=== PATIENT | male | born 1955 | race Caucasian/White ===

== ENCOUNTER 2021-07-08 14:56 | Inpatient (IN) | payer OTHER, MEDICARE ==
--- OUTSIDE RECORDS SUMMARY | 2021-07-08 15:00 | XMS REPORT | Continuity of Care Document ---
:1955 Author Organization [facility] t Address [address] [place] [address] Dr. [address] [place] [address] Care Team Providers Name Role Phone Britney THIBODEAUX Attending Clinician Unavailable JANET Attending Clinician Unavailable 2, Lab Attending Clinician Unavailable Janet OWENS Attending Clinician Buck Martin DO Attending Clinician Doctor Unassigned, Name Attending Clinician Unavailable Morelia DRAKEP, A Attending Clinician Quentin OWENS, H Attending Clinician Lab, Fam Pob I Attending Clinician Unavailable Ivelisse HOLLINGSWORTH Attending Clinician IVELISSE Attending Clinician Unavailable Payers Payer Name Policy Type Policy Number Effective Date Expiration Date Americo grimm [facility] Medicare P [id number] Supplement [facility] [id number] 2016 CHOICE 00:00:00 Problems Condition Condition Condition Status Onset Resolution Last Treating Co mments Source Name Details Category Date Date Treatment Clinician Date Callus of Callus of Disease Active Uni vers foot foot 7-11 ity of 00:00: [place] 00 [facility] Type 2 Type 2 Disease Active Univers diabetes diabetes 1-04 ity of mellitus mellitus 00:00: [place] without without 00 Medical complicati complicati Br anch on, on, without without long-term long-term current current use of use of insulin insulin Dyslipidem Dyslipidem Disease Active U nivers ia ia 1-04 ity of 00:00: [place] 00 [facility] Essential Essential Disease Active Uni vers hypertensi hypertensi 1-04 it y of on on 00:00: [address] Allergies, Adverse Reactions, Alerts Allergy Allergy Status Severity Reaction(s) Onset Inactive Treating Comm ents Source Name Type Date Date Clinician NO KNOWN Drug Active Univers ALLERGIE Class ity of S [facility] Social History Social Habit Start Date Stop Date Quantity Comments Source History of tobacco Cigarette Smoker University of use [facility] Exposure to Not sure [facility] SARS-CoV-2 (event) [facility] Cigarettes smoked 2020-05-28 2020-05-28 Univers ity of current (pack per 00:00:00 00:00:00 [facility] ) - Reported Marine Cigarette 2020-05-28 2020-05-28 University of pack-years 00:00:00 00:00:00 [facility] Tobacco use and 2020-05-28 2020-05-28 Never used Universit y of exposure 00:00:00 00:00:00 [facility] Alcohol intake 2020-05-28 2020-05-28 University of 00:00:00 00:00:00 [facility] Sex Ass[birth year] Universit y of 00:00:00 00:00:00 [facility] Smoking Status Start Date Stop Date Source Current every day smoker 2020-05-28 00:00:00 Uni versity of [facility] Medications Ordered Filled Start Stop Current Ordering Indication Dosage Frequency Signature Comments Components Source Medication Medication Date Date Medication? Clinician (SIG) Name Name glipiZIDE Yes [id number] 10mg Take 1 U nivers XL 10 mg 24 3-09 tablet by ity of hr tablet 00:00: mouth 2 [place] 00 (two) [facility] daily. atorvastati Yes [id number] 40mg Take 1 Univers n 40 mg 3-09 tablet by ity of tablet 00:00: mouth at [place] [address] bedtime. [facility] metformin Yes [id number] 1000mg Take 2 Univers ER 500 mg 3-09 tablets by ity of 24 hr 00:00: mouth 2 [place] tablet 00 (two) [facility] daily. lisinopriL Yes [id number] TK 1 T PO Univers 5 mg tablet 3-09 QD ity of 00:00: [place] 00 [facility] pioglitazon Yes [id number] 15mg Take 1 Univers e 15 mg 3-09 tablet by ity of tablet 00:00: mouth [place] 00 daily. Medical Branch glipiZIDE Yes [id number] 10mg Take 1 U nivers XL 10 mg 24 3-09 tablet by ity of hr tablet 00:00: mouth 2 [place] 00 (two) [facility] times Branch daily. atorvastati Yes [id number] 40mg Take 1 Univers n 40 mg 3-09 tablet by ity of tablet 00:00: mouth at [place] 00 bedtime. Medical Branch metformin Yes [id number] 1000mg Take 2 Univers ER 500 mg 3-09 tablets by ity of 24 hr 00:00: mouth 2 [place] tablet 00 (two) Medical times Branch daily. lisinopriL Yes [id number] TK 1 T PO Univers 5 mg tablet 3-09 QD ity of 00:00: [place] 00 [facility] pioglitazon Yes [id number] 15mg Take 1 Univers e 15 mg 3-09 tablet by ity of tablet 00:00: mouth [place] 00 daily. Medical Branch glipiZIDE Yes [id number] 10mg Take 1 U nivers XL 10 mg 24 3-09 tablet by ity of hr tablet 00:00: mouth 2 [place] 00 (two) Medical times Branch daily. atorvastati Yes [id number] 40mg Take 1 Univers n 40 mg 3-09 tablet by ity of tablet 00:00: mouth at [place] 00 bedtime. Medical Branch metformin Yes [id number] 1000mg Take 2 Univers ER 500 mg 3-09 tablets by ity of 24 hr 00:00: mouth 2 [place] tablet 00 (two) Medical times Branch daily. lisinopriL Yes [id number] TK 1 T PO Univers 5 mg tablet 3-09 QD ity of 00:00: [place] 00 [facility] pioglitazon Yes [id number] 15mg Take 1 Univers e 15 mg 3-09 tablet by ity of tablet 00:00: mouth [place] 00 daily. Medical Branch metformin 2019-0 Yes [id number] 1000mg Take 2 Univers ER 500 mg 9-09 tablets by ity of 24 hr 00:00: mouth 2 [place] tablet 00 (two) Medical times Branch daily. pioglitazon 2020-0 Yes [id number] 15mg Take 1 Univers e 15 mg 9-09 tablet by ity of tablet 00:00: mouth [place] 00 daily. Medical Branch glipiZIDE 2020-0 Yes [id number] 10mg Take 1 U nivers XL 10 mg 24 9-09 tablet by ity of hr tablet 00:00: mouth 2 [place] 00 (two) Medical times Branch daily. atorvastati 2020-0 Yes [id number] 40mg Take 1 Univers n 40 mg 9-09 tablet by ity of tablet 00:00: mouth at [place] 00 bedtime. Medical Branch lisinopriL 2020-0 Yes [id number] TK 1 T PO Univers 5 mg tablet 9-09 QD ity of 00:00: [place] 00 [facility] metformin 2020-0 Yes [id number] 1000mg Take 2 Univers ER 500 mg 9-09 tablets by ity of 24 hr 00:00: mouth 2 [place] tablet 00 (two) Medical times Branch daily. pioglitazon 2020-0 Yes [id number] 15mg Take 1 Univers e 15 mg 9-09 tablet by ity of tablet 00:00: mouth [place] 00 daily. Medical Branch glipiZIDE 2020-0 Yes [id number] 10mg Take 1 U nivers XL 10 mg 24 9-09 tablet by ity of hr tablet 00:00: mouth 2 [place] 00 (two) Medical times Branch daily. atorvastati 2020-0 Yes [id number] 40mg Take 1 Univers n 40 mg 9-09 tablet by ity of tablet 00:00: mouth at [place] 00 bedtime. Medical Branch lisinopriL 2020-0 Yes [id number] TK 1 T PO Univers 5 mg tablet 9-09 QD ity of 00:00: [place] 00 [facility] metformin 2020-0 Yes [id number] 1000mg Take 2 Univers ER 500 mg 9-09 tablets by ity of 24 hr 00:00: mouth 2 [place] tablet 00 (two) Medical times Branch daily. pioglitazon 2020-0 Yes [id number] 15mg Take 1 Univers e 15 mg 9-09 tablet by ity of tablet 00:00: mouth [place] 00 daily. Medical Branch glipiZIDE 2020-0 Yes [id number] 10mg Take 1 U nivers XL 10 mg 24 9-09 tablet by ity of hr tablet 00:00: mouth 2 00 (two) Medical times Branch daily. atorvastati 2020-0 Yes [id number] 40mg Take 1 Univers n 40 mg 9-09 tablet by ity of tablet 00:00: mouth at [place] 00 bedtime. Medical Branch lisinopriL 2020-0 Yes [id number] TK 1 T PO Univers 5 mg tablet 9-09 QD ity of 00:00: [place] 00 [facility] metformin 2020-0 Yes [id number] 1000mg Take 2 Univers ER 500 mg 9-09 tablets by ity of 24 hr 00:00: mouth 2 [place] tablet 00 (two) Medical times Branch daily. pioglitazon 2020-0 Yes [id number] 15mg Take 1 Univers e 15 mg 9-09 tablet by ity of tablet 00:00: mouth [place] 00 daily. Medical Branch glipiZIDE 2020-0 Yes [id number] 10mg Take 1 U nivers XL 10 mg 24 9-09 tablet by ity of hr tablet 00:00: mouth 2 (two) Medical times Branch daily. atorvastati 2020-0 Yes [id number] 40mg Take 1 Univers n 40 mg 9-09 tablet by ity of tablet 00:00: mouth at [place] 00 bedtime. Medical Branch lisinopriL 2020-0 Yes [id number] TK 1 T PO Univers 5 mg tablet 9-09 QD ity of 00:00: [place] 00 [facility] metformin 2020-0 Yes [id number] 1000mg Take 2 Univers ER 500 mg 9-09 tablets by ity of 24 hr 00:00: mouth 2 [place] tablet 00 (two) Medical times Branch daily. pioglitazon 2020-0 Yes [id number] 15mg Take 1 Univers e 15 mg 9-09 tablet by ity of tablet 00:00: mouth [place] 00 daily. Medical Branch glipiZIDE 2020-0 Yes [id number] 10mg Take 1 U nivers XL 10 mg 24 9-09 tablet by ity of hr tablet 00:00: mouth 2 (two) Medical times Branch daily. atorvastati 2020-0 Yes [id number] 40mg Take 1 Univers n 40 mg 9-09 tablet by ity of tablet 00:00: mouth at [place] 00 bedtime. Medical Branch lisinopriL 2020-0 Yes [id number] TK 1 T PO Univers 5 mg tablet 11-28 QD ity of 00:00: [place] 00 [facility] metformin 2020- No [id number] 1000mg Take 2 Univers ER 500 mg 11-28 tablets by ity of 24 hr 00:00: 00:00 mouth 2 [place] tablet 00 :00 (two) Medical times Branch daily. pioglitazon 2020- No [id number] 15mg Take 1 Univers e 15 mg 11-28 tablet by ity of tablet 00:00: 00:00 mouth [place] 00 :00 daily. Medical Branch glipiZIDE 2020- No [id number] 10mg Take 1 Univers XL 10 mg 24 11-28 tablet by it y of hr tablet 00:00: 00:00 mouth 2 [place] :[place] (two) Medical times Branch daily. atorvastati 2020- No [id number] 40mg Take 1 Univers n 40 mg 11-28 tablet by ity of tablet 00:00: 00:00 mouth at [place] 00 :00 bedtime. Medical Branch lisinopriL 2020- No [id number] TK 1 T PO Univers 5 mg tablet 11-28 QD ity of 00:00: 00:00 [place] 00 :00 Medical Branch metformin 2020- No [id number] 1000mg Take 2 Univers ER 500 mg 11-28 tablets by ity of 24 hr 00:00: 00:00 mouth 2 [place] tablet 00 :00 (two) Medical times Branch daily. pioglitazon 2020- No [id number] 15mg Take 1 Univers e 15 mg 11-28 tablet by ity of tablet 00:00: 00:00 mouth [place] 00 :00 daily. Medical Branch glipiZIDE 2020- No [id number] 10mg Take 1 Univers XL 10 mg 24 11-28 tablet by it y of hr tablet 00:00: 00:00 mouth 2 [place] :[place] (two) Medical times Branch daily. atorvastati 2020- No [id number] 40mg Take 1 Univers n 40 mg 11-28 tablet by ity of tablet 00:00: 00:00 mouth at [place] 00 :00 bedtime. Medical Branch lisinopriL 2020- No [id number] TK 1 T PO Univers 5 mg tablet 11-28 QD ity of 00:00: 00:00 [place] 00 :00 Medical Branch pioglitazon Yes [id number] 15mg Take 1 Univers e 15 mg 1-08 tablet by ity of tablet 00:00: mouth [place] 00 daily. Medical Branch pioglitazon Yes [id number] 15mg Take 1 Univers e 15 mg 1-08 tablet by ity of tablet 00:00: mouth [place] 00 daily. Medical Branch pioglitazon Yes [id number] 15mg Take 1 Univers e 15 mg 1-08 tablet by ity of tablet 00:00: mouth [place] 00 daily. Medical Branch pioglitazon Yes [id number] 15mg Take 1 Univers e 15 mg 1-08 tablet by ity of tablet 00:00: mouth [place] 00 daily. Medical Branch pioglitazon Yes [id number] 15mg Take 1 Univers e 15 mg 1-08 tablet by ity of tablet 00:00: mouth [place] 00 daily. Medical Branch pioglitazon 2020- No [id number] 15mg Take 1 Univers e 15 mg -08 -09 tablet by ity of tablet 00:00: 00:00 mouth [place] 00 :00 daily. Medical Branch pioglitazon 2019- No [id number] 15mg Take 1 Univers e 15 mg 08 -09 tablet by ity of tablet 00:00: 00:00 mouth [place] 00 :00 daily. Medical Branch glipiZIDE 2018-03 Yes [id number] 10mg Take 1 U nivers XL 10 mg 24 0-04 tablet by ity of hr tablet 00:00: mouth 2 00 (two) Medical times Branch daily. glipiZIDE 2018-03 Yes [id number] 10mg Take 1 U nivers XL 10 mg 24 0-04 tablet by ity of hr tablet 00:00: mouth 2 00 (two) Medical times Branch daily. glipiZIDE 2018-03 Yes [id number] 10mg Take 1 U nivers XL 10 mg 24 0-04 tablet by ity of hr tablet 00:00: mouth 2 [place] 00 (two) Medical times Branch daily. glipiZIDE 2018-03 Yes [id number] 10mg Take 1 U nivers XL 10 mg 24 0-04 tablet by ity of hr tablet 00:00: mouth 2 (two) Medical times Branch daily. glipiZIDE 2018-03 Yes [id number] 10mg Take 1 U nivers XL 10 mg 24 0-04 tablet by ity of hr tablet 00:00: mouth 2 (two) Medical times Branch daily. glipiZIDE 2018-03- No [id number] 10mg Take 1 Univers XL 10 mg 24 0-04 09-09 tablet by it y of hr tablet 00:00: 00:00 mouth 2 [place] :[place] (two) Medical times Branch daily. glipiZIDE 2018-03- No [id number] 10mg Take 1 Univers XL 10 mg 24 0-04 09-09 tablet by it y of hr tablet 00:00: 00:00 mouth 2 [place] 00 :00 (two) Medical times Branch daily. atorvastati Yes [id number] 40mg Take 1 Univers n 40 mg 6-19 tablet by ity of tablet 00:00: mouth at [place] [address] bedtime. Medical Branch pen needle, Yes [id number] 1{each} 1 Each Univers diabetic 33 6-19 every ity of gauge x 00:00: morning. [place] [facility] atorvastati Yes [id number] 40mg Take 1 Univers n 40 mg 6-19 tablet by ity of tablet 00:00: mouth at [place] [address] bedtime. Medical Branch pen needle, Yes [id number] 1{each} 1 Each Univers diabetic 33 6-19 every ity of gauge x 00:00: morning. [place] [facility] atorvastati Yes [id number] 40mg Take 1 Univers n 40 mg 6-19 tablet by ity of tablet 00:00: mouth at [place] [address] bedtime. Medical Branch pen needle, Yes [id number] 1{each} 1 Each Univers diabetic 33 6-19 every ity of gauge x 00:00: morning. [place] [facility] atorvastati Yes [id number] 40mg Take 1 Univers n 40 mg 6-19 tablet by ity of tablet 00:00: mouth at [place] 00 bedtime. Medical Branch pen needle, Yes [id number] 1{each} 1 Each Univers diabetic 33 6-19 every ity of gauge x 00:00: morning. Medical Branch pen needle, Yes [id number] 1{each} 1 Each Univers diabetic 33 6-19 every ity of gauge x 00:00: morning. Medical Branch pen needle, Yes [id number] 1{each} 1 Each Univers diabetic 33 6-19 every ity of gauge x 00:00: morning. [place] [facility] pen needle, Yes [id number] 1{each} 1 Each Univers diabetic 33 6-19 every ity of gauge x 00:00: morning. [place] [facility] pen needle, Yes [id number] 1{each} 1 Each Univers diabetic 33 6-19 every ity of gauge x 00:00: morning. Medical Branch pen needle, Yes [id number] 1{each} 1 Each Univers diabetic 33 6-19 every ity of gauge x 00:00: morning. [place] [facility] pen needle, Yes [id number] 1{each} 1 Each Univers diabetic 33 6-19 every ity of gauge x 00:00: morning. [place] [facility] pen needle, Yes [id number] 1{each} 1 Each Univers diabetic 33 6-19 every ity of gauge x 00:00: morning. [place] [facility] atorvastati Yes [id number] 40mg Take 1 Univers n 40 mg 6-19 tablet by ity of tablet 00:00: mouth at [place] 00 bedtime. Medical Branch liraglutide Yes [id number] 1.2mg inject 1.2 Univers 0.6 mg/0.1 6-19 mg under ity o f mL (18 mg/3 00:00: the skin [place] mL) 00 daily. Medical injection Branch pen needle, Yes [id number] 1{each} 1 Each Univers diabetic 33 6-19 every ity of gauge x 00:00: morning. Medical Branch pen needle, Yes [id number] 1{each} 1 Each Univers diabetic 33 6-19 every ity of gauge x 00:00: morning. " [place] [facility] atorvastati Yes [id number] 40mg Take 1 Univers n 40 mg 6-19 tablet by ity of tablet 00:00: mouth at [place] 00 bedtime. Medical Branch liraglutide Yes [id number] 1.2mg inject 1.2 Univers 0.6 mg/0.1 6-19 mg under ity o f mL (18 mg/3 00:00: the skin [place] mL) 00 daily. Medical injection Branch pen needle, Yes [id number] 1{each} 1 Each Univers diabetic 33 6-19 every ity of gauge x 00:00: morning. Medical Branch atorvastati Yes [id number] 40mg Take 1 Univers n 40 mg 6-19 tablet by ity of tablet 00:00: mouth at [place] 00 bedtime. Medical Branch liraglutide Yes [id number] 1.2mg inject 1.2 Univers 0.6 mg/0.1 6-19 mg under ity o f mL (18 mg/3 00:00: the skin [place] mL) 00 daily. Medical injection Branch pen needle, Yes [id number] 1{each} 1 Each Univers diabetic 33 6-19 every ity of gauge x 00:00: morning. " [place] [facility] atorvastati Yes [id number] 40mg Take 1 Univers n 40 mg 6-19 tablet by ity of tablet 00:00: mouth at [place] 00 bedtime. Medical Branch liraglutide Yes [id number] 1.2mg inject 1.2 Univers 0.6 mg/0.1 6-19 mg under ity o f mL (18 mg/3 00:00: the skin [place] mL) 00 daily. Medical injection Branch pen needle, Yes [id number] 1{each} 1 Each Univers diabetic 33 6-19 every ity of gauge x 00:00: morning. [place] " [place] 00 Medical Branch atorvasta Yes [id number] 40mg Take 1 Univers n 40 mg 6-19 tablet by ity of tablet 00:00: mouth at [place] 00 bedtime. Medical Branch pen needle, Yes [id number] 1{each} 1 Each Univers diabetic 33 6-19 every ity of gauge x 00:00: morning. [place] " [place] 00 Medical Branch atorvasta 2020- No [id number] 40mg Take 1 Univers n 40 mg 6-19 11-28 tablet by ity of tablet 00:00: 00:00 mouth at [place] 00 :00 bedtime. Medical Branch atorvastati 2020- No [id number] 40mg Take 1 Univers n 40 mg 6-19 11-28 tablet by ity of tablet 00:00: 00:00 mouth at [place] 00 :00 bedtime. [facility] 2017-03 Yes INL 1 PUFF Univers ELLIPTA 2-29 PO QD ity of 200-25 00:00: [place] mcg/dose 00 [facility] 2017-03 Yes INL 1 PUFF Univers ELLIPTA 2-29 PO QD ity of 200-25 00:00: [place] mcg/dose 00 [facility] 2017-03 Yes INL 1 PUFF Univers ELLIPTA 2-29 PO QD ity of 200-25 00:00: [place] mcg/dose 00 [facility] 2017-03 Yes INL 1 PUFF Univers ELLIPTA 2-29 PO QD ity of 200-25 00:00: [place] mcg/dose 00 [facility] 2017-03 Yes INL 1 PUFF Univers ELLIPTA 2-29 PO QD ity of 200-25 00:00: [place] mcg/dose 00 [facility] 2017-03 Yes INL 1 PUFF Univers ELLIPTA 2-29 PO QD ity of 200-25 00:00: [place] mcg/dose 00 [facility] 2017-03 Yes INL 1 PUFF Univers ELLIPTA 2-29 PO QD ity of 200-25 00:00: [place] mcg/dose 00 [facility] 2017-03 Yes INL 1 PUFF Univers ELLIPTA 2-29 PO QD ity of 200-25 00:00: [place] mcg/dose 00 [facility] 2017-03 Yes INL 1 PUFF Univers ELLIPTA 2-29 PO QD ity of 200-25 00:00: [place] mcg/dose 00 Medical DsDv Branch BRE 2018- Yes INL 1 PUFF Univers ELLIPTA 2-29 PO QD ity of 200-25 00:00: [place] mcg/dose 00 Medical DsDv Branch BRE 2018 Yes INL 1 PUFF Univers ELLIPTA 2-29 PO QD ity of 200-25 00:00: [place] mcg/dose 00 Medical DsDv Branch BRE 2017- Yes INL 1 PUFF Univers ELLIPTA 2-29 PO QD ity of 200-25 00:00: [place] mcg/dose 00 Medical DsDv Branch BRE 2018- Yes INL 1 PUFF Univers ELLIPTA 2-29 PO QD ity of 200-25 00:00: [place] mcg/dose 00 Medical DsDv Branch [facility] 2017-03 Yes INL 1 PUFF Univers ELLIPTA 2-29 PO QD ity of 200-25 00:00: [place] mcg/dose 00 Medical DsDv Branch [facility] 2017- Yes INL 1 PUFF Univers ELLIPTA 2-29 PO QD ity of 200-25 00:00: [place] mcg/dose 00 Medical DsDv Branch [facility] 2017- Yes INL 1 PUFF Univers ELLIPTA 2-29 PO QD ity of 200-25 00:00: [place] mcg/dose 00 Medical DsDv Branch [facility] 2017-03 Yes INL 1 PUFF Univers ELLIPTA 2-29 PO QD ity of 200-25 00:00: [place] mcg/dose 00 Medical DsDv Branch tamsulosin [id number] Yes .4mg Take 1 Unive rs 0.4 mg 24 8-10 capsule by ity of hr capsule 00:00: mouth [place] 00 daily. Medical Branch tamsulosin 2018-0 Yes .4mg Take 1 Unive rs 0.4 mg 24 8-10 capsule by ity of hr capsule 00:00: mouth [place] 00 daily. Medical Branch tamsulosin 2018-0 Yes .4mg Take 1 Unive rs 0.4 mg 24 8-10 capsule by ity of hr capsule 00:00: mouth [place] 00 daily. Medical Branch tamsulosin [id number] Yes .4mg Take 1 Unive rs 0.4 mg 24 8-10 capsule by ity of hr capsule 00:00: mouth [place] 00 daily. Medical Branch tamsulosin 2018-0 Yes .4mg Take 1 Unive rs 0.4 mg 24 8-10 capsule by ity of hr capsule 00:00: mouth [place] 00 daily. Medical Branch tamsulosin 2018-0 Yes .4mg Take 1 Unive rs 0.4 mg 24 8-10 capsule by ity of hr capsule 00:00: mouth [place] 00 daily. Medical Branch tamsulosin 2018-0 Yes .4mg Take 1 Unive rs 0.4 mg 24 8-10 capsule by ity of hr capsule 00:00: mouth [place] 00 daily. Medical Branch tamsulosin 2018-0 Yes .4mg Take 1 Unive rs 0.4 mg 24 8-10 capsule by ity of hr capsule 00:00: mouth [place] 00 daily. Medical Branch tamsulosin 2018-0 Yes .4mg Take 1 Unive rs 0.4 mg 24 8-10 capsule by ity of hr capsule 00:00: mouth [place] 00 daily. Medical Branch tamsulosin 2018-0 Yes .4mg Take 1 Unive rs 0.4 mg 24 8-10 capsule by ity of hr capsule 00:00: mouth [place] 00 daily. Medical Branch tamsulosin 2018-0 Yes .4mg Take 1 Unive rs 0.4 mg 24 8-10 capsule by ity of hr capsule 00:00: mouth [place] 00 daily. Medical Branch tamsulosin 2018-0 Yes .4mg Take 1 Unive rs 0.4 mg 24 8-10 capsule by ity of hr capsule 00:00: mouth [place] 00 daily. Medical Branch tamsulosin 2018-0 Yes .4mg Take 1 Unive rs 0.4 mg 24 8-10 capsule by ity of hr capsule 00:00: mouth [place] 00 daily. Medical Branch tamsulosin 2018-0 Yes .4mg Take 1 Unive rs 0.4 mg 24 8-10 capsule by ity of hr capsule 00:00: mouth [place] 00 daily. Medical Branch tamsulosin 2018-0 Yes .4mg Take 1 Unive rs 0.4 mg 24 8-10 capsule by ity of hr capsule 00:00: mouth [place] 00 daily. Medical Branch tamsulosin 2018-0 Yes .4mg Take 1 Unive rs 0.4 mg 24 8-10 capsule by ity of hr capsule 00:00: mouth [place] 00 daily. Medical Branch tamsulosin 2018-0 Yes .4mg Take 1 Unive rs 0.4 mg 24 8-10 capsule by ity of hr capsule 00:00: mouth [place] 00 daily. Medical Branch metformin 2017-0 Yes [id number] 1000mg Take 2 Univers ER 500 mg 7-11 tablets by ity of 24 hr 00:00: mouth 2 [place] tablet 00 (two) Medical times Branch daily. metformin 2017-0 Yes [id number] 1000mg Take 2 Univers ER 500 mg 7-11 tablets by ity of 24 hr 00:00: mouth 2 [place] tablet 00 (two) Medical times Branch daily. metformin 2017-0 Yes [id number] 1000mg Take 2 Univers ER 500 mg 7-11 tablets by ity of 24 hr 00:00: mouth 2 [place] tablet 00 (two) Medical times Branch daily. glipiZIDE 2017-0 Yes [id number] 10mg Take 1 U nivers XL 10 mg 24 7-11 tablet by ity of hr tablet 00:00: mouth 2 [place] 00 (two) Medical times Branch daily. metformin 2017-0 Yes [id number] 1000mg Take 2 Univers ER 500 mg 7-11 tablets by ity of 24 hr 00:00: mouth 2 [place] tablet 00 (two) Medical times Branch daily. glipiZIDE 2017-0 Yes [id number] 10mg Take 1 U nivers XL 10 mg 24 7-11 tablet by ity of hr tablet 00:00: mouth 2 [place] 00 (two) Medical times Branch daily. metformin 2017-0 Yes [id number] 1000mg Take 2 Univers ER 500 mg 7-11 tablets by ity of 24 hr 00:00: mouth 2 [place] tablet 00 (two) Medical times Branch daily. glipiZIDE 2017-0 Yes [id number] 10mg Take 1 U nivers XL 10 mg 24 7-11 tablet by ity of hr tablet 00:00: mouth 2 [place] 00 (two) Medical times Branch daily. metformin 2017-0 Yes [id number] 1000mg Take 2 Univers ER 500 mg 7-11 tablets by ity of 24 hr 00:00: mouth 2 [place] tablet 00 (two) Medical times Branch daily. glipiZIDE 2017-0 Yes [id number] 10mg Take 1 U nivers XL 10 mg 24 7-11 tablet by ity of hr tablet 00:00: mouth 2 [place] 00 (two) Medical times Branch daily. metformin 2017-0 Yes [id number] 1000mg Take 2 Univers ER 500 mg 7-11 tablets by ity of 24 hr 00:00: mouth 2 [place] tablet 00 (two) Medical times Branch daily. metformin Yes [id number] 1000mg Take 2 Univers ER 500 mg 7-11 tablets by ity of 24 hr 00:00: mouth 2 [place] tablet 00 (two) Medical times Branch daily. metformin Yes [id number] 1000mg Take 2 Univers ER 500 mg 7-11 tablets by ity of 24 hr 00:00: mouth 2 [place] tablet 00 (two) Medical times Branch daily. metformin 2019- No [id number] 1000mg Take 2 Univers ER 500 mg 7-11 09-09 tablets by ity of 24 hr 00:00: 00:00 mouth 2 [place] tablet 00 :00 (two) Medical times Branch daily. metformin 2019- No [id number] 1000mg Take 2 Univers ER 500 mg 7-11 09-09 tablets by ity of 24 hr 00:00: 00:00 mouth 2 [place] tablet 00 :00 (two) Medical times Branch daily. SYMBICORT 2015-03 Yes INL 2 PFS Uni vers 160-4.5 2-12 PO BID ity of mcg/actuati 00:00: [place] on inhaler Medical Branch SYMBICORT 2015-03 Yes INL 2 PFS Uni vers 160-4.5 2-12 PO BID ity of mcg/actuati 00:00: [place] on inhaler Medical Branch SYMBICORT 2015-03 Yes INL 2 PFS Uni vers 160-4.5 2-12 PO BID ity of mcg/actuati 00:00: [place] on inhaler Medical Branch SYMBICORT 2015-03 Yes INL 2 PFS Uni vers 160-4.5 2-12 PO BID ity of mcg/actuati 00:00: [place] on inhaler Medical Branch SYMBICORT 2015-03 Yes INL 2 PFS Uni vers 160-4.5 2-12 PO BID ity of mcg/actuati 00:00: [place] on inhaler Medical Branch SYMBICORT 2015-03 Yes INL 2 PFS Uni vers 160-4.5 2-12 PO BID ity of mcg/actuati 00:00: [place] on inhaler Medical Branch SYMBICORT 2015-03 Yes INL 2 PFS Uni vers 160-4.5 2-12 PO BID ity of mcg/actuati 00:00: [place] on inhaler 00 Medical Branch SYMBICORT 2015-03 Yes INL 2 PFS Uni vers 160-4.5 2-12 PO BID ity of mcg/actuati 00:00: [place] on inhaler 00 [facility] SYMBICORT 2015-03 Yes INL 2 PFS Uni vers 160-4.5 2-12 PO BID ity of mcg/actuati 00:00: [place] on inhaler 00 [facility] SYMBICORT 2015-03 2020- No INL 2 PFS Un stevie 160-4.5 2-11-28 PO BID ity of mcg/actuati 00:00: 00:00 [place] on inhaler 00 :00 [facility] SYMBICORT 2015-03 2020- No INL 2 PFS Un stevie 160-4.5 2-11-28 PO BID ity of mcg/actuati 00:00: 00:00 [place] on inhaler 00 :00 [facility] lisinopril 2015-03 Yes TK 1 T PO Un stevie 5 mg tablet 1-22 QD ity of 00:00: Medical Branch lisinopril 2016 Yes TK 1 T PO Un stevie 5 mg tablet 1-22 QD ity of 00:00: [place] [facility] lisinopril 2015-03 Yes TK 1 T PO Un stevie 5 mg tablet 1-22 QD ity of 00:00: [place] [facility] lisinopril 2015-03 Yes TK 1 T PO Un stevie 5 mg tablet 1-22 QD ity of 00:00: [place] [facility] lisinopril 2015-03 Yes TK 1 T PO Un stevie 5 mg tablet 1-22 QD ity of 00:00: Medical Branch lisinopril 2016 Yes TK 1 T PO Un stevie 5 mg tablet 1-22 QD ity of 00:00: [place] [facility] lisinopril 2015- Yes TK 1 T PO Un stevie 5 mg tablet 1-22 QD ity of 00:00: Medical Branch lisinopril 2015-03 Yes TK 1 T PO Un stevie 5 mg tablet 1-22 QD ity of 00:00: [place] [facility] lisinopril 2015-03 Yes TK 1 T PO Un stevie 5 mg tablet 1-22 QD ity of 00:00: Medical [facility] lisinopril 2015-1 2020- No TK 1 T PO U nivers 5 mg tablet 04-12 QD ity of 00:00: 00:00 [place] 00 :00 [facility] lisinopril 2015- 2020- No TK 1 T PO U nivers 5 mg tablet 04-12 QD ity of 00:00: 00:00 [place] 00 :00 [facility] Immunizations Ordered Filled Immunization Date Status Comments Sour e Immunization Name Name Influenza High Dose 2019-12-27 Completed Unive rsity of 00:00:00 [facility] Influenza High Dose 2019-12-27 Completed Unive rsity of 00:00:00 [facility] Influenza High Dose 2019-12-27 Completed Unive rsity of 00:00:00 [facility] Influenza Virus 2017-12-28 Completed Universit y of Vaccine Quad .5 mL 00:00:00 [place] [address] TDAP 2017-12-28 Completed University of 00:00:00 [facility] Influenza Virus 2017-12-28 Completed Universit y of Vaccine Quad .5 mL 00:00:00 [place] [address] [place] TDAP 2017-12-28 Completed University of 00:00:00 [facility] Influenza Virus 2017-12-28 Completed Universit y of Vaccine Quad .5 mL 00:00:00 [facility] 6+ [place] Branch TDAP 2017-12-28 Completed University of 00:00:00 [facility] Influenza Virus 2017-12-28 Completed Universit y of Vaccine Quad .5 mL 00:00:00 [facility] 6+ [place] TDAP 2017-12-28 Completed University of 00:00:00 [facility] Influenza Virus 2017-12-28 Completed Universit y of Vaccine Quad .5 mL 00:00:00 [facility] 6+ [place] TDAP 2017-12-28 Completed University of 00:00:00 [facility] Influenza Virus 2017-12-28 Completed Universit y of Vaccine Quad .5 mL 00:00:00 [facility] 6+ [place] TDAP 2017-12-28 Completed University of 00:00:00 [facility] Influenza Virus 2017-12-28 Completed Universit y of Vaccine Quad .5 mL 00:00:00 [facility] 6+ [place] TDAP 2017-12-28 Completed University of 00:00:00 [facility] Influenza Virus 2017-12-28 Completed Universit y of Vaccine Quad .5 mL 00:00:00 [place] [facility] 6+ [place] [facility] TDAP 2017-12-28 Completed University of 00:00:00 [facility] Influenza Virus 2017-12-28 Completed Universit y of Vaccine Quad .5 mL 00:00:00 [place] [facility] 6+ [place] TDAP 2017-12-28 Completed University of 00:00:00 [facility] Influenza Virus 2017-12-28 Completed Universit y of Vaccine Quad .5 mL 00:00:00 [place] [facility] 6+ [place] TDAP 2017-12-28 Completed University of 00:00:00 [facility] Influenza Virus 2017-12-28 Completed Universit y of Vaccine Quad .5 mL 00:00:00 [place] [facility] 6+ [place] TDAP 2017-12-28 Completed University of 00:00:00 [facility] Influenza Virus 2017-12-28 Completed Universit y of Vaccine Quad .5 mL 00:00:00 [place] [facility] 6+ [place] TDAP 2017-12-28 Completed University of 00:00:00 [facility] Influenza Virus 2017-12-28 Completed Universit y of Vaccine Quad .5 mL 00:00:00 [place] [facility] 6+ [place] TDAP 2017-12-28 Completed University of 00:00:00 [facility] Vital Signs Vital Name Observation Time Observation Value Comments Source Systolic blood 2020-05-28 15:02:00 133 mm[Hg] Univer sity of pressure [facility] Diastolic blood 2020-05-28 15:02:00 78 mm[Hg] Unive rsity of pressure [facility] Heart rate 2020-05-28 15:02:00 76 /min [facility] Respiratory rate 2020-05-28 15:02:00 19 /min [facility] Body height 2020-05-28 15:02:[address] [facility] Body weight 2020-05-28 15:02:[address] [facility] BMI 2020-05-28 15:02:00 35.88 kg/m2 [facility] Systolic blood 2019-11-29 19:09:00 119 mm[Hg] Univer sity of pressure [facility] Diastolic blood 2019-11-29 19:09:00 76 mm[Hg] Unive rsity of pressure [place] [facility] Heart rate 2019-11-29 19:09:00 78 /min [facility]i ty [facility] [place] [facility] Body height 2019-11-29 19:09:00 172.7 cm [facility]i ty [facility] [place] [facility] Body weight 2019-11-29 19:09:00 108.5 kg [facility]i ty [facility] [place] [facility] BMI 2019-11-29 19:09:00 36.37 kg/m2 [facility]i ty [facility] [place] [facility] Oxygen saturation in 2019-11-29 19:09:00 95 /min University of Arterial blood by [facility] Pulse oximetry Branch Systolic blood 2019-11-29 19:09:00 119 mm[Hg] Univer sity of pressure [place] [facility] Diastolic blood 2019-11-29 19:09:00 76 mm[Hg] Unive rsity of pressure [place] [facility] Heart rate 2019-11-29 19:09:00 78 /min [facility]i ty [facility] [place] [facility] Body height 2019-11-29 19:09:00 172.7 cm [facility] [place] [facility] Body weight 2019-11-29 19:09:00 108.5 kg [facility]i ty [facility] [place] [facility] BMI 2019-11-29 19:09:00 36.37 kg/m2 [facility] ty [facility] [place] [facility] Oxygen saturation in 2019-11-29 19:09:00 95 /min University of Arterial blood by [facility] Pulse oximetry Branch Systolic blood 2019-11-29 13:23:00 121 mm[Hg] Univer sity of pressure [place] [facility] Diastolic blood 2019-11-29 13:23:00 78 mm[Hg] Unive rsity of pressure [place] [facility] Heart rate 2019-11-29 13:23:00 82 /min Universi ty [facility] [place] [facility] Body temperature 2019-11-29 13:23:00 35.83 Hillary Univ ersity of [place] [facility] Respiratory rate 2019-11-29 13:23:00 20 /min Univ ersity of [place] [facility] Body height 2019-11-29 13:23:00 172.7 cm [facility] [place] [facility] Body weight 2019-11-29 13:23:00 108.228 kg [facility] [place] [facility] BMI 2019-11-29 13:23:00 36.28 kg/m2 [facility] [place] [facility] Oxygen saturation in 2019-11-29 13:23:00 98 /min University of Arterial blood by [facility] Pulse oximetry Branch Systolic blood 2018-11-28 19:20:00 148 mm[Hg] Univer sity of pressure [facility] Diastolic blood 2018-11-28 19:20:00 84 mm[Hg] Unive rsity of pressure [facility] Heart rate 2018-11-28 19:20:00 63 /min [facility] Body weight 2018-11-28 19:20:[address] [facility] BMI 2018-11-28 19:20:00 38.74 kg/m2 [facility] Body temperature 2018-11-28 19:05:00 36.83 Hillary [facility] 2018-11-28 19:05:00 18 /[facility] Body height 2018-11-28 19:05:[address] [facility] Procedures Procedure Date / Time Performing Clinician Source Performed POCT HEMOGLOBIN A1C TEST 2020-05-28 00:00:00 Anusha Jasso [facility] MEDICATION CORRESPONDENCE 2020-01-05 05:01:00 Doctor Unassigned, [facility] Harlan [facility] POCT URINALYSIS AUTO 2019-11-29 13:15:00 Bessy Thibodeaux [facility] PATIENT QUESTIONNAIRE 2019-11-29 05:01:00 Doctor Unajunior, [facility] Name [facility] POCT HEMOGLOBIN A1C TEST 2019-11-29 00:00:00 Anusha Jasso [facility] POCT URINALYSIS AUTO 2018-11-28 19:21:00 Bessy Thibodeaux [facility] AGREEMENTS AUTHORIZATIONS 2018-11-28 05:01:00 Doctor Unassigned, [facility] AND IRREVOCABLE Har[place] [facility] ASSIGNMENTS (FORM 2001) Encounters Start End Encounter Admission Attending Care Care Encounter Source Date/Time Date/Time Type Type Clinicians Facility Department ID 2021-03-05 Outpatient [facility] [id number] [place] 05:06:38 [id number] Critical access hospital 2021-01-05 Outpatient [facility] [id number] [facility] 08:00:30 [id number] Critical access hospital 2021-01-05 Outpatient [facility] [id number] [facility] 07:46:11 [id number] Critical access hospital 2020-12-04 2020-12-04 Outpatient MORELIA [facility] [id number] Univers 13:00:00 13:00:00 BESSY [id number] ity of [facility] 2020-12-03 2020-12-03 Outpatient R JANET [facility] [id number] Univers 09:00:00 09:00:00 ANUSHA [id number] ity [facility] 2020-05-28 2020-05-28 Bingo Caller 2, Adc Lab [facility] [id number] Univers 09:59:33 10:14:33 Visit Anusha Jasso [id number] [id number] [phone] [facility] [address] [facility] 2020-05-28 2020-05-28 [facility] [id number] Univers 09:04:03 09:38:44 Visit Anusha Pate [id number] [id number] [phone] Or dical nal [address] [facility] 2020-05-28 2020-05-28 Outpatient R JANET [facility] [id number] Univers 09:00:00 09:00:00 ANUSHA [id number] ity of [facility] 2020-05-28 2020-05-28 Outpatient R JANET [facility] [id number] Univers 09:00:00 09:00:00 JOVANNIONG ity of [facility] 2020-05-27 2020-05-27 Patient Mario [facility] [id number] Univers 00:00:00 00:00:00 Outreach Foreign LYON [id number] i ty of [facility] [id number] [phone] Or dic[address] 2020-01-05 2020-01-05 Orders Doctor AMALIA [id number] Univers 00:00:00 00:00:00 Only Unassigned, ADEBAYO [id number] ity of [place] [facility] [id number] Eric as [phone] [facility] 00[address] [place] 2020-01-05 2020-01-05 Orders Doctor AMALIA [id number] 00:00:00 00:00:00 Only Unassigned, [place] [id number] [place] [facility] [id number] [id number] [id number] 2019-11-29 2019-11-29 Office Jasso, [facility] [id number] Univers 13:53:25 15:00:19 Visit Anusha Pate [id number] [id number] [phone] [facility] [address] [facility] 2019-11-29 2019-11-29 Office Jasso, [facility] [id number] 13:53:25 15:00:19 Visit Anusha Pate [id number] [place] [id number] Professio [phone] psychiatric hospital [facility] 2019-11-29 2019-11-29 Outpatient R JANET [facility] [id number] Univers 14:00:00 14:00:00 ANUSHA [id number] ity [facility] 2019-11-29 2019-11-29 Bingo Caller 2, Adc Lab [facility] 1.2.840.114 [id number] Univers 08:41:35 08:56:35 Visit Bessy Thibodeaux [id number] [id number] [phone] [facility] 2019-11-29 2019-11-29 Office Morelia, [facility] 1.2.840.114 [id number] Univers 08:03:10 08:38:00 Visit Bessy Pate [id number] [id number] [phone] [facility] [address] [facility] 2019-11-29 2019-11-29 Outpatient R MORELIA [facility] [id number] Univers 08:00:00 08:00:00 BESSY ity [facility] 2019-11-29 2019-11-29 Orders Doctor AMALIA 1.2.840.114 [id number] Univers 00:00:00 00:00:00 Only Unassigned, ADEBAYO [id number] ity of [place] [facility] [id number] Eric as [phone] [facility] [address] [place] 2019-11-29 2019-11-29 Orders Doctor AMALIA 1.2.840.114 [id number] 00:00:00 00:00:00 Only Unassigned, [place] [id number] [place] [facility] [phone] [facility] 2019-09-27 2019-09-27 Outpatient R JANET [facility] [id number] Univers 10:00:00 10:00:00 ANUSHA [facility] 2019-09-27 2019-09-27 Outpatient Aba JASSO [facility] [id number] Univers 10:00:00 10:00:[facility] 2019-09-22 2019-09-22 Telephone AMALIA Saavedra [id number] Univers 00:00:00 00:00:00 Abram FIORE [id number] i ty of [facility] [id number] Eric as [phone] [facility] 019 [place] 2019-09-21 2019-09-21 Laboratory Lab, Adc Fam Pob I [facility] 1.2. [id number] [id number] Univers 07:59:03 08:19:03 Only Amalia [facility] [id number] ity of [place] [id number] Eric as Professio [phone] Or [facility]ical psychiatric hospital [address] 2019-09-21 2019-09-21 Outpatient [facility] [id number] Univers 08:00:00 08:00:00 [id number] [facility] 2019-09-[facility] 2019-09-21 Outpatient Aba OVIEDO [facility] [id number] Univers 08:00:00 08:00:00 AMALIA benton [facility] 2019-09-21 2019-09-21 Outpatient R IVELISSE [facility] [id number] Univers 08:00:00 08:00:00 AMALIA ity [facility] 2019-09-17 2019-09-17 Outpatient [facility] [id number] Univers 12:45:00 12:45:00 [id number] [facility] 2019-03-29 2019-03-29 [facility] [id number] Univers 08:00:00 08:47:56 ANUSHA [facility] 2018-11-28 2018-11-28 Bingo Caller 2, Adc Lab [facility] 1.2.840.114 [id number] Univers 14:15:05 14:30:05 Visit Bessy Thibodeaux [id number] [id number] [phone] [facility] [address] [facility] 2018-11-28 2018-11-28 [facility] 1.2.840.114 [id number] Univers 13:47:46 14:11:43 Visit Bessy Pate [id number] [id number] [phone] [facility] [address] [facility] 2018-11-28 2018-11-28 Orders Doctor AMALIA 1.2.840.114 [id number] Univers 00:00:00 00:00:00 Only Unassigned, ADEBAYO [id number] ity of [place] [facility] [id number] Eric as [phone] [address] 2018-09-15 2018-09-15 [facility] 1.2.840.114 [id number] Univers 00:00:00 00:00:00 Secure Msg Anusha Pate [id number] [id number] [phone] [facility] [address] [facility] Results Test Description Test Time Test Comments Results Result Comments Source POCT HEMOGLOBIN A1C TEST 2020-05-28 15:14:00 Test Item Value Reference Range Interpretation Comme nts POCT HBA1C (test code = 4548-4) 7.9 % 4-6 A Lab Interpretation (test code = 75990-9) Abnormal [facility] HEMOGLOBIN A1C [id number] 15:14:00 Test Item Value Reference Range Interpretation Comments POCT HBA1C (test code = 4548-4) 7.9 % 4-6 A Lab Interpretation (test code = Abnormal 71440-7) [facility] HEMOGLOBIN A1C [id number] 19:14:00 Test Item Value Reference Range Interpretation Comments POCT HBA1C (test code = 4548-4) 8.0 % 4-6 A Lab Interpretation (test code = Abnormal 42148-8) [facility] HEMOGLOBIN A1C [id number] 19:14:00 Test Item Value Reference Range Interpretation Comments POCT HBA1C (test code = 4548-4) 8.0 % 4-6 A Lab Interpretation (test code = Abnormal 31040-5) [facility] URINALYSIS, [id number] 13:16:00 Test Item Value Reference Range Interpretation Comments POCT U SP GRAV (test code = 1.010 mg/dl 1.005-1.025 3255) POCT PH U (test code = 3254) 5.0 mg/dl 5-8 POCT U LEUK EST (test code = negative Negative - Negative 3263) POCT U NIT (test code = 3262) negative Negative - Negative POCT U PROT (test code = negative Negative - Negative 3259) POCT U GLU (test code = 3256) negative Negative - Negative POCT U KETONE (test code = negative Negative - Negative 3258) POCT U UROBILI (test code = 0.2 mg/dl 0.2-1 0) POCT U BILI (test code = negative Negative - Negative 3261) POCT U BLD (test code = 3257) negative Negative - Negative POCT U COLOR (test code = yellow 3266) POCT U APPEAR (test code = clear 7) [facility] URINALYSIS, [id number] 13:16:00 Test Item Value Reference Range Interpretation Comments POCT U SP GRAV (test code = 1.010 mg/dl 1.005-1.025 3255) POCT PH U (test code = 3254) 5.0 mg/dl 5-8 POCT U LEUK EST (test code = negative Negative - Negative 3263) POCT U NIT (test code = 3262) negative Negative - Negative POCT U PROT (test code = negative Negative - Negative 3259) POCT U GLU (test code = 3256) negative Negative - Negative POCT U KETONE (test code = negative Negative - Negative 3258) POCT U UROBILI (test code = 0.2 mg/dl 0.2-1 3260) POCT U BILI (test code = negative Negative - Negative 3261) POCT U BLD (test code = 3257) negative Negative - Negative POCT U COLOR (test code = yellow 3266) POCT U APPEAR (test code = clear 3267) [facility] [id number] 19:22:00 Test Item Value Reference Range Interpretation Comments POCT U SP GRAV (test code = 1.010 mg/dl 1.005-1.025 3255) POCT PH U (test code = 3254) 6.0 mg/dl 5-8 POCT U LEUK EST (test code = Negative Negative - Negative 3263) POCT U NIT (test code = 3262) Negative Negative - Negative POCT U PROT (test code = Negative Negative - Negative 3259) POCT U GLU (test code = 3256) Negative - Negative POCT U KETONE (test code = Negative Negative - Negative 3258) POCT U UROBILI (test code = 0.2 mg/dl 0.2-1 3260) POCT U BILI (test code = Negative Negative - Negative 3261) POCT U BLD (test code = 3257) trace Negative - Negative POCT U COLOR (test code = yellow 3266) POCT U APPEAR (test code = clear 3267) Lab Interpretation (test code Abnormal = 74220-9) [facility]
[2021-07-08] MEDS ORDERED: FENTANYL CITR 100 MCG/2 ML ONE ×2 (15:17→15:37)
[2021-07-08] MEDS ORDERED: LORazepam 2 MG/ML VIAL ONE (15:37)
[2021-07-08] MEDS ORDERED: NA CHLORIDE 0.9% 1,000 ML ONE (15:46)
[2021-07-08] MEDS ORDERED: TETANUS & DIPHTHERIA TOX,ADULT 0.5 ML VIAL ONE (15:46)
[2021-07-08] MEDS ORDERED: ONDANSETRON 4 MG/2 ML VIAL ONE ×2 (15:46→17:56)
--- NOTE | 2021-07-08 16:17 | RAD REPORT ---
EXAM DESCRIPTION: CT - Head C Spine Cap Bryanna [place] - 07/08/2021 3:44 pm CLINICAL HISTORY: head injury, fall from horse, left-sided head, neck, chest and abdomen pain COMPARISON: <Comparisons> TECHNIQUE: Axial [address] head images were obtained. Axial [address] cervical spine images were obtaine d with sagittal and coronal reconstruction images reviewed. During dynamic enhancement of 100mL non-i onic contrast, axial 5 mm images of the chest, abdomen and pelvis were obtained. Biphasic technique p erformed of the abdomen and pelvis. All CT scans are performed using dose optimization technique as appropriate and may include automated exposure control or mA/KV adjustment according to patient size. FINDINGS: No intracranial hemorrhage, mass or edema. No midline shift or abnormal fluid collection. Mild bifrontal volume loss changes are present. Ventricles are in proportion. Chronic ischemic change is minimal. Mastoid air cells and paranasal sinuses are clear. No skull fracture. CT cervical spine imaging shows normal height. Normal alignment of the vertebrae. C5-6 and C6-7 disc space narrowing seen with associated endplate spurring. Multilevel facet joint degenerative changes a re present. Significant foraminal stenosis noted on the right at C3-4 with moderate C5-6 and C6-7 jaime ateral foraminal stenosis. No paraspinal mass or hematoma seen. Central canal detail is inherently li mited. Concerns for traumatic disc herniation or traumatic cord injury can be further addressed with MR imaging. Comminuted midshaft left clavicle fracture is present. Sternoclavicular and acromioclavicular joints are normal. No fracture or dislocation of the humeral head or scapula. There is an approximately 40% left-sided pneumothorax. Anterior left third rib is fractured without displacement. The lateral fourt h - seventh ribs are fractured without displacement. Posterior third- sixth ribs are fractured. There is posterolateral eighth rib fracture. No right-sided rib fractures present. Atelectasis changes are present. Trace amount of pleural fluid or blood present. No mediastinal hematoma and the aorta and pulmonary arteries are unremarkable. No chest will mass or abnormal axillary finding. Small amount of subcutaneous emphysema is present along the left lateral ribcage. CT abdomen and pelvis show no injury to solid abdominal viscera. Liver shows fatty infiltration patte rn. No gallbladder or biliary tree abnormality. No bowel injury or significant finding. No free air, free fluid or abnormal stranding. No urinary bladder abnormality. Small fat filled left inguinal hernia is present. Infrarenal abdominal aortic aneurysm is present 4.2 cm AP x 4.4 cm TR. No acute component. Spine degenerative changes are present. No acute compression fracture. No sternum fracture seen. IMPRESSION: Multiple left-sided rib fractures with several ribs fractured in more than 1 location. N o significant displacement. Patient has approximately 40% left-side pneumothorax with trace amount of hemothorax collecting poste riorly. No acute CT Head finding finding. Cervical spine degenerative change as detailed with no acute finding. Comminuted midshaft left clavicle fracture. No acute traumatic injuries in the abdomen or pelvis.
[2021-07-08] MEDS ORDERED: LIDOCAINE 1% W/EPI 1:100,000 MDV 50 ML VIAL ONE (17:14)
--- NOTE | 2021-07-08 17:29 | RAD REPORT ---
EXAM DESCRIPTION: RAD - Shoulder Left 2 View - 07/08/2021 4:34 pm CLINICAL HISTORY: PAIN, fall COMPARISON: <Comparisons> TECHNIQUE: Internal and external rotation views of the left shoulder were obtained. FINDINGS: No fracture or dislocation of the humerus. No AC joint separation. There is comminuted mid shaft clavicle fracture with 2.8 centimeter superior displacement of the medial fracture fragment rel ative to the lateral fracture fragment. Sternoclavicular joint appears to be intact. Multiple posterior rib fractures are present involving the third-sixth ribs. Minimal displacement is seen. Lateral rib fractures are suspected as well without displacement. Trace amount of emphysema see n along the lateral aspect of the lower chest wall. Approximately 40% pneumothorax is present on the left. IMPRESSION: No fracture, dislocation or acute left shoulder finding. Comminuted clavicle fracture, rib fractures and left-sided pneumothorax are present and fully detaile d in CT trauma study. Pneumothorax findings have already been provided to the referring physician.
--- NOTE | 2021-07-08 17:30 | RAD REPORT ---
EXAM DESCRIPTION: RAD - Humerus Left - 07/08/2021 4:34 pm CLINICAL HISTORY: Fall from horse, arm, shoulder and rib pain COMPARISON: None. FINDINGS: No fracture is identified. There is no dislocation or periosteal reaction noted. No forei gn body or other soft tissue abnormality. Rib findings are detailed in separate imaging studies. IMPRESSION: Negative left humerus examination.
[2021-07-08] MEDS ORDERED: MORPHINE 4 MG/ML SYR ONE (17:55)
--- NOTE | 2021-07-08 18:38 | RAD REPORT ---
EXAM DESCRIPTION: RAD - Chest Single View - 07/08/2021 6:25 pm CLINICAL HISTORY: chest tube, pneumothorax COMPARISON: CT trauma imaging same date TECHNIQUE: AP portable chest image was obtained 07/08/2021 6:25 pm . FINDINGS: Left-sided chest tube has been placed. Tip is in the medial left apex. The left-sided pneu mothorax is no longer identifiable. No new or progressive lung parenchymal process. Heart and vasculature are normal. Multiple rib fractu res again noted. Emphysema along the lateral lower left chest soft tissues has not changed. IMPRESSION: Left-sided chest tube placement with tip in the medial left apex. Left-sided pneumothorax is no longer identifiable.
--- NOTE | 2021-07-08 18:42 | ER ---
Nurse's Notes [facility] Name: Rashid Neal Age: 65 yrs Sex: Male : 1955 Arrival Date: 07/08/2021 Time: 14:57 Bed 4 Private MD: Diagnosis: Multiple fractures of ribs, left side-Pneumothorax, clavicular fracture closed comminuted midshaft Presentation: 07/08 15:10 Chief complaint: Patient states: Was saddling up onto a horse when the saddle slipped ss causing patient to fall onto L side. Pt c/o difficulty breathing, L shoulder and lateral chest wall pain. Injury occurred 30 minutes ago. Care prior to arrival: None. Mechanism of Injury: Fall SEE TRIAGE NOTE. Trauma event details: Injury occurred in the [facility]. 15:10 Acuity: ROBERT 2 ss 15:10 Method Of Arrival: Wheelchair ss 15:10 Coronavirus screen: Client denies travel out of the [place] in the last 14 days. Ebola ss Screen: Patient denies exposure to infectious person. Patient denies travel to an Ebola-affected area in the 21 days before illness onset. Initial Sepsis Screen: Does the patient meet any 2 criteria? No. Patient's initial sepsis screen is negative. Does the patient have a suspected source of infection? No. Patient's initial sepsis screen is negative. Risk Assessment: Do you want to hurt yourself or someone else? Patient reports no desire to harm self or others. Onset of symptoms was July 08, 2021. Triage Assessment: 15:58 General: Appears uncomfortable, Behavior is cooperative, anxious. Pain: Complains of grier pain in chest and left arm. Injury Description: skin tear on left elbow. Trauma Activation: Alert Physician: ED Physician; Name: ; Notified At: ; Arrived At: Physician: General Surgeon; Name: ; Notified At: ; Arrived At: Physician: Radiology; Name: ; Notified At: ; Arrived At: Physician: Respiratory; Name: ; Notified At: ; Arrived At: Physician: Lab; Name: ; Notified At: ; Arrived At: Historical: - Allergies: 15:09 No Known Allergies; ph - Immunization history:: Adult Immunizations up to date. - Social history:: Patient/guardian denies using alcohol, street drugs, The patient lives with family, Smoking status: Patient reports the use of cigarette tobacco products, smokes two packs cigarettes per day. - Immunization history: Last tetanus immunization: - up to date. < 5 years ago. - Family history:: not pertinent. Screenin:10 Abuse screen: Denies threats or abuse. Denies injuries from another. Tuberculosis ss screening: Never had TB. 15:56 Nutritional screening: No deficits noted. Fall Risk IV access (20 points). grier Primary Survey: 15:10 NO uncontrolled hemorrhage observed. A: The patient is alert. Airway: patent, No ss supplemental oxygen in use on arrival. Oral cavity: clear, Trachea midline. Breathing/Chest: Respiratory pattern: regular, Respiratory effort: spontaneous, unlabored, Breath sounds: clear, bilaterally. Chest inspection: symmetrical rise and fall of the chest. Circulation: Pulses: palpable right radial artery and left radial artery. Skin color: pink, Skin temperature: warm. Disability Alert. Exposure/Environment: All clothing and personal items were removed. Forensic evidence collection is not deemed to be indicated at this time. Items placed in patient belonging bag. There is no evidence of uncontrolled external bleeding. 15:59 Reassessment Breathing/Chest Respiratory pattern Regular Respiratory effort Shallow grier Breath sounds Diminished Circulation Pulses Palpable Color [place]. Secondary Survey: 15:10 HEENT: Head No injury/deformity Face No injury/deformity Eyes: No injury or deformity ss noted. Ears: clear Nose: clear Throat: No injury or deformity noted. Gastrointestinal: Abdomen is soft, Other round, non distended. : No deficits noted. Musculoskeletal: Range of motion: limited in left shoulder. Injury Description: Skin tears sustained to palmar aspect of left forearm. Assessment: 15:18 Reassessment: Pt to CT now VIA wheelchair. ss 15:56 Pain: Complains of pain in chest and left arm. Respiratory: Breath sounds are grier diminished in left lower lobe. 19:42 General: Appears in no apparent distress. uncomfortable, Behavior is calm, cooperative. lg3 Pain: Complains of pain in chest and left arm. Neuro: No deficits noted. Level of Consciousness is awake, alert, obeys commands, Oriented to person, place, time, situation. Cardiovascular: No deficits noted. Respiratory: Airway is patent Trachea midline Respiratory effort is even, unlabored, Respiratory pattern is regular, symmetrical. 19:45 General: left chest tube noted with intermittent suction at 80 mm. no bubbles noted in lg3 water chamber. dressing dry and intact. . Vital Signs: 15:10 BP 179 / 94; Pulse 94; Resp 18; Pulse Ox 95% on R/A; Pain 10/10; ss 17:00 BP 142 / 69; Pulse 83; Resp 21; Pulse Ox 95% on 2 lpm NC; ph 18:18 BP 130 / 73; Pulse 89; Resp 18; Pulse Ox 100% on 4 lpm NC; grier 18:59 BP 133 / 114; Pulse 84; Resp 22; Pulse Ox 98% on 4 lpm NC; ph [place] Coma Score: 15:10 Eye Response: spontaneous(4). Verbal Response: oriented(5). Motor Response: obeys ss commands(6). Total: 15. Trauma Score (Adult): 15:10 Eye Response: spontaneous(1); Verbal Response: oriented(1); Motor Response: obeys ss commands(2); Systolic BP: > 89 mm Hg(4); Respiratory Rate: 10 to 29 per min(4); Teet[place] Score: 15; Trauma Score: 12 ED Course: 14:57 Patient arrived in ED. as 15:09 Álvaro Davila MD is Attending Physician. ma2 15:10 Patient has correct armband on for positive identification. media monitor on. Pulse ss ox on. NIBP on. 15:10 Arm band placed on left wrist. ss 15:10 Patient maintains SpO2 saturation greater than 95% on room air. ss 15:17 Tanya Griffith, RN is Primary Nurse. ss 15:20 Triage completed. ss 15:45 CT Traumagram (Head C Spine CAP W Con) In Process Unspecified. EDMS 15:56 No provider procedures requiring assistance completed. Inserted saline lock: 18 gauge grier in right forearm, using aseptic technique. 15:58 Inserted saline lock: 22 gauge in left forearm, using aseptic technique. grier 16:36 Shoulder Left (2 View) XRAY In Process Unspecified. EDMS 16:36 Humerus Left XRAY In Process Unspecified. EDMS 18:18 Placed. chest placed by Dr. Davila. suction on intermittent 80mm. no bubbles note in grier the water chambers. dressing applied 4way. 18:41 Rufino Wayne MD is Hospitalizing Provider. ma2 18:44 COVID-19 SARS RT PCR (Document "Date of Onset" if Symptomatic) Sent. grier 21:14 Patient admitted, IV remains in place. intact, No redness/swelling at site. lg3 21:14 Thermoregulation: warm blanket given to patient. lg3 Administered Medications: 15:15 Drug: fentaNYL (PF) 50 mcg Route: IVP; Site: right antecubital; ss 15:52 Follow up: Response: No adverse reaction grier 15:51 Drug: Ativan (LORazepam) 2 mg Route: IVP; Site: right forearm; grier 15:52 Follow up: Response: No adverse reaction grier 15:52 Follow up: Response: No adverse reaction grier 15:51 Drug: fentaNYL (PF) 1 mcg/kg/h Route: IV; Rate: calculated rate; Site: right forearm; grier 18:21 Follow up: Response: No adverse reaction grier 18:21 Follow up: IV Status: Completed infusion grier 16:15 Not Given (pt up to date): Tetanus-Diphtheria Toxoid Adult 0.5 ml IM once grier 18:16 Drug: Zofran (Ondansetron) 4 mg Route: IVP; Site: right forearm; grier 18:17 Follow up: Response: No adverse reaction grier 18:17 Drug: morphine 4 mg Route: IVP; Site: right forearm; grier 18:17 Follow up: Response: No adverse reaction grier 18:24 Not Given (Physician Discretion): NS 0.9% 1000 ml IV at 1000 ml once grier 18:44 Drug: Zofran (Ondansetron) 4 mg Route: PO; grier 18:45 Follow up: Response: No adverse reaction grier 20:08 Drug: Dilaudid (HYDROmorphone) 1 mg Route: IVP; Site: left forearm; lg3 20:08 Follow up: Response: No adverse reaction lg3 Intake: 15:59 PO: 0ml; Total: 0ml. grier Outcome: 18:41 Decision to Hospitalize by Provider. ma2 21:13 Admitted to Med/surg accompanied by nurse, via stretcher, room 211, with oxygen, Report lg3 called to Mar[place] 21:13 Condition: stable 21:13 Instructed on the need for admit. 21:14 Patient's length of stay in the Emergency Department was greater than 2 hours. pending lg3 covid resultsPatient's length of stay extended due to 21:26 Patient left the ED. vc1 Signatures: Dispatcher [employer] EDMS Mirna Fan Shelby, RN RN ss Josey Jimenze RN RN Álvaro Davila MD MD nv2 Karolina Shelby RN RN 3 Tamanna Lux RN RN grier Rosaura Bunn RN RN vc1 Corrections: (The following items were deleted from the chart) 15:23 15:10 Chief complaint: Patient states: Was saddling up onto a horse when the saddle ss slipped causing patient to fall onto L side. Pt c/o difficulty breathing, L shoulder and lateral chest wall pain. ss
--- NOTE | 2021-07-08 18:42 | EDPHYS ---
Physician Documentation [facility] Name: Rashid Neal Age: 65 yrs Sex: Male : 1955 Arrival Date: 07/08/2021 Time: 14:57 Bed 4 Private MD: ED Physician Álvaro Davila HPI: 07/08 15:15 This 65 yrs old Male presents to ER via Unassigned with complaints of Fall Injury, ma2 Shortness Of Breath. 15:15 Onset: The symptoms/episode began/occurred suddenly, gradually, 1 hour(s) ago. Severity ma2 of symptoms: At their worst the symptoms were mild, in the emergency department the symptoms are unchanged. Fell off a horse, hit left side has pain on deep breath on the left lateral chest. Historical: - Allergies: 15:09 No Known Allergies; ph - Immunization history:: Adult Immunizations up to date. - Social history:: Patient/guardian denies using alcohol, street drugs, The patient lives with family, Smoking status: Patient reports the use of cigarette tobacco products, smokes two packs cigarettes per day. - Immunization history: Last tetanus immunization: - up to date. < 5 years ago. - Family history:: not pertinent. ROS: 15:15 Constitutional: Negative for fever, chills, and weight loss, MS/Extremity: Negative for ma2 injury and deformity. 15:15 All other systems are negative. Exam: 15:15 Constitutional: This is a well developed, well nourished patient who is awake, alert, ma2 and in no acute distress. Head/Face: Normocephalic, atraumatic. Eyes: Pupils equal round and reactive to light, extra-ocular motions intact. Lids and lashes normal. Conjunctiva and sclera are non-icteric and not injected. Cornea within normal limits. Periorbital areas with no swelling, redness, or edema. ENT: Nares patent. No nasal discharge, no septal abnormalities noted. Tympanic membranes are normal and external auditory canals are clear. Oropharynx with no redness, swelling, or masses, exudates, or evidence of obstruction, uvula midline. Mucous membranes moist. Neck: Trachea midline, no thyromegaly or masses palpated, and no cervical lymphadenopathy. Supple, full range of motion without nuchal rigidity, or vertebral point tenderness. No Meningismus. Chest/axilla: Normal chest wall appearance and motion. Nontender with no deformity. No lesions are appreciated. Cardiovascular: Regular rate and rhythm with a normal S1 and S2. No gallops, murmurs, or rubs. Normal PMI, no JVD. No pulse deficits. Respiratory: Lungs have equal breath sounds bilaterally, clear to auscultation and percussion. No rales, rhonchi or wheezes noted. No increased work of breathing, no retractions or nasal flaring. Abdomen/GI: Soft, non-tender, with normal bowel sounds. No distension or tympany. No guarding or rebound. No evidence of tenderness throughout. Skin: Warm, dry with normal turgor. Normal color with no rashes, no lesions, and no evidence of cellulitis. MS/ Extremity: Left shoulder pain, limited range of motion, left lateral chest wall tenderness, patient also has abrasion to left elbow, pulses equal, no cyanosis. Neurovascular intact. Full, normal range of motion. Neuro: Awake and alert, GCS 15, oriented to person, place, time, and situation. Cranial nerves II-XII grossly intact. Motor strength 5/5 in all extremities. Sensory grossly intact. Cerebellar exam normal. Normal gait. Vital Signs: 15:10 BP 179 / 94; Pulse 94; Resp 18; Pulse Ox 95% on R/A; Pain 10/10; ss 17:00 BP 142 / 69; Pulse 83; Resp 21; Pulse Ox 95% on 2 lpm NC; ph 18:18 BP 130 / 73; Pulse 89; Resp 18; Pulse Ox 100% on 4 lpm NC; grier 18:59 BP 133 / 114; Pulse 84; Resp 22; Pulse Ox 98% on 4 lpm NC; ph [place] Coma Score: 15:10 Eye Response: spontaneous(4). Verbal Response: oriented(5). Motor Response: obeys ss commands(6). Total: 15. Trauma Score (Adult): 15:10 Eye Response: spontaneous(1); Verbal Response: oriented(1); Motor Response: obeys ss commands(2); Systolic BP: > 89 mm Hg(4); Respiratory Rate: 10 to 29 per min(4); Teetee Score: 15; Trauma Score: 12 Procedures: 17:51 Chest tube insertion: the site was prepped using Betadine, in sterile fashion, Tube ma2 size: a 28 vietnamese chest tube was inserted, introduced in left anterior lateral chest wall, dressed with foam tape, 4x4s, the patient tolerated the procedure well. MDM: 15:12 Patient medically screened. ma2 15:15 Differential diagnosis: contusion, fracture, sprain, strain. ma2 17:51 Data reviewed: vital signs, nurses notes, EMS record. Counseling: I had a detailed ma2 discussion with the patient and/or guardian regarding: the historical points, exam findings, and any diagnostic results supporting the discharge/admit diagnosis, the presence of at least one elevated blood pressure reading (>120/80) during this emergency department visit, the need for outpatient follow up. Response to treatment: the patient's symptoms have markedly improved after treatment. Admission orders: after a detailed discussion of the patient's condition and case, the admit orders are written by me. Admission orders: after a detailed discussion of the patient's condition and case, the admit orders are written by me. Admission orders: after a detailed discussion of the patient's condition and case, the admit orders are written by me. Admission orders: after a detailed discussion of the patient's condition and case, the admit orders are written by me. Admission orders: after a detailed discussion of the patient's condition and case, the admit orders are written by me. Admission orders: after a detailed discussion of the patient's condition and case, the admit orders are written by me. Admission orders: after a detailed discussion of the patient's condition and case, the admit orders are written by me. ED course: Patient has multiple rib fracture on the left side 4 through 6 at multiple locations, also comminuted midshaft clavicular fracture closed, chest tube inserted, patient was improved, vital signs are normal postprocedure. Pending chest x-ray s/p chest tube insertion. I consulted with orthopedic doctor Dr. Ellis and he will consult on the patient he advised that this midshaft comminuted closed clavicular fracture can be managed conservatively and he will consult on the patient. I consulted with Dr. Jones, general surgeon for chest tube. Dr. Wayne admitting physician saw the patient, case discussed with Dr. Wayne. 07/08 17:32 Order name: COVID-19 SARS RT PCR (Document "Date of Onset" if Symptomatic) bd 07/08 18:05 Order name: Basic Metabolic Panel EDMS 07/08 15:11 Order name: CT Traumagram (Head C Spine CAP W Con); Complete Time: 17:49 ma2 07/08 15:14 Order name: Shoulder Left (2 View) XRAY; Complete Time: 17:49 ma2 07/08 18:05 Order name: CBC with Automated Diff EDMS 07/08 21:15 Order name: CBC Smear Scan EDMS 07/08 15:14 Order name: Humerus Left XRAY; Complete Time: 17:49 ma2 07/08 17:48 Order name: Chest Single View XRAY ma2 07/08 18:05 Order name: Chest Single View; Complete Time: 18:41 EDMS 07/08 15:11 Order name: IV Saline Lock; Complete Time: 15:43 ma2 07/08 15:11 Order name: O2 Per Protocol; Complete Time: 15:43 ma2 07/08 15:11 Order name: O2 Sat Monitoring; Complete Time: 15:43 ma2 07/08 16:34 Order name: Chest Tube Setup; Complete Time: 18:15 ma2 Administered Medications: 15:15 Drug: fentaNYL (PF) 50 mcg Route: IVP; Site: right antecubital; ss 15:52 Follow up: Response: No adverse reaction grier 15:51 Drug: Ativan (LORazepam) 2 mg Route: IVP; Site: right forearm; grier 15:52 Follow up: Response: No adverse reaction grier 15:52 Follow up: Response: No adverse reaction grier 15:51 Drug: fentaNYL (PF) 1 mcg/kg/h Route: IV; Rate: calculated rate; Site: right forearm; grier 18:21 Follow up: Response: No adverse reaction grier 18:21 Follow up: IV Status: Completed infusion grier 16:15 Not Given (pt up to date): Tetanus-Diphtheria Toxoid Adult 0.5 ml IM once grier 18:16 Drug: Zofran (Ondansetron) 4 mg Route: IVP; Site: right forearm; grier 18:17 Follow up: Response: No adverse reaction grier 18:17 Drug: morphine 4 mg Route: IVP; Site: right forearm; grier 18:17 Follow up: Response: No adverse reaction grier 18:24 Not Given (Physician Discretion): NS 0.9% 1000 ml IV at 1000 ml once grier 18:44 Drug: Zofran (Ondansetron) 4 mg Route: PO; grier 18:45 Follow up: Response: No adverse reaction grier 20:08 Drug: Dilaudid (HYDROmorphone) 1 mg Route: IVP; Site: left forearm; lg3 20:08 Follow up: Response: No adverse reaction lg3 Disposition Summary: 07/08/21 18:41 Hospitalization Ordered Hospitalization Status: Inpatient Admission wa2 Provider: Rufino Wayne Location: Telemetry/MedSur (Inpatient) ma2 Condition: Stable ma2 Problem: new ma2 Symptoms: are unchanged ma2 Bed/Room Type: Standard [facility] Room Assignment: 211(07/08/21 20:44) cg Diagnosis - Multiple fractures of ribs, left side - Pneumothorax, clavicular fracture closed ma2 comminuted midshaft Forms: - Medication Reconciliation Form ma2 - SBAR form ma2 Critical care time excluding procedures: 17:51 Critical care time: Bedside Care: 30 minutes, Consultation: 20 minutes, Family wa2 Intervention: 10 minutes. Total time: 60 minutes Signatures: Dispatcher [employer] EDMS Tanya Griffith RN RN Josey Jimenez RN RN Pinky Burks RN RN Álvaro Davila MD MD [facility] Karolina Shelby RN RN [facility] Tamanna Lux RN RN Corrections: (The following items were deleted from the chart) 20:44 18:41 ma2 cg
[2021-07-08] MEDS ORDERED: HYDROMORPHONE HCL 1 MG/ML INJ ONE (20:02)
[2021-07-08 20:18] LABS: Absolute Lymphocytes (CBC) 0.7 K/uL (0.7-4.9); Hematocrit 44.4 % (39.6-49.0); Lymphocytes % 4.9 % (15.3-44.8); MPV 6.6 fL (7.6-11.3); RBC Red Blood Cell Count 4.64 M/uL (4.33-5.43)
[2021-07-08 20:38] LABS: Potassium 4.6 mmol/L (3.5-5.1)
[2021-07-08 21:14] LABS: Blood Morphology Comment NOT SEEN (NOT SEEN); Platelet Estimate ADEQ; White Blood Cell Scan OK (OK)
[2021-07-08] MEDS: MORPHINE 4 MG/ML SYR IV PRN (22:52)
[2021-07-08] MEDS ORDERED: ONDANSETRON 4 MG/2 ML VIAL IV PRN (22:53)
[2021-07-08] MEDS ORDERED: GLUCAGON 1 MG/VIAL IM PRN (22:53)
[2021-07-08] MEDS ORDERED: D50W 25 GM/50 ML SYRINGE IV PRN (22:53)
[2021-07-08] MEDS ORDERED: CEFTRIAXONE 1,000 MG in NA CHLORIDE 0.9% 50 ML IVPB ONE (22:56)
[2021-07-09] MEDS: MORPHINE 4 MG/ML SYR IV PRN ×2 (03:16→08:11)
[2021-07-09] MEDS: HYDROCODONE/APAP 10/325 TAB PO SCH ×3 (05:46→18:47)
[2021-07-09] MEDS: INSULIN -REGULAR HUMAN 50 UNIT/0.5 ML ML SQ SCH ×4 (07:30→21:00)
[2021-07-09] MEDS: IPRATROPIUM BROM 0.5MG/2.5ML NEB SCH ×4 (07:31→19:41)
[2021-07-09] MEDS: ALBUTEROL 2.5 MG/3 ML NEB SOL NEB SCH ×4 (07:31→19:41)
[2021-07-09] MEDS ORDERED: PNEUMOCOCCAL VACCINE 0.5 ML IMVAC ONE (08:00)
[2021-07-09] MEDS: CEFTRIAXONE 1,000 MG in NA CHLORIDE 0.9% 50 ML IVPB SCH (08:09)
[2021-07-09] MEDS: METOPROLOL TAR 25 MG TAB PO SCH ×2 (08:10→21:02)
[2021-07-09] MEDS: TAMSULOSIN 0.4 MG SR CAP PO SCH (08:10)
[2021-07-09] MEDS: MONTELUKAST 10 MG TAB PO SCH (08:10)
[2021-07-09] MEDS: FAMOTIDINE 20 MG/2 ML VIAL IV SCH ×2 (08:30→21:03)
[2021-07-09] MEDS ORDERED: TAMSULOSIN 0.4 MG SR CAP PO SCH (09:00)
[2021-07-09] MEDS ORDERED: SOD CHLORIDE 0.65% NASAL SPRAY NAS PRN (10:30)
--- NOTE | 2021-07-09 10:32 | HP ---
Date of Admission: 07/08/2021 Chief Complaint: Fall, shortness of breath, and pain. History Of Present Illness: This is a 65-year-old male patient, who was trying to ride his horse and as he sat on the saddle which was unfortunately not secured and as he tried to lean on 1 side, he ro lled over and fell down on the ground. As he fell down on the ground, he actually fell on a tree [place] and immediately started hurting a lot on the left side of his chest and started to have shortness of breath. He was brought into the emergency room. Further evaluation revealed multiple left-sided rib fractures, left clavicle fracture, and 40% pneumothorax on the left side. Chest tube was placed and I saw him in emergency room after a chest tube was placed. His was present at bedside who p rovided me with all this information and details. Allergies: NO KNOWN ALLERGIES. Medications: ProAir inhaler 2 puffs 4 times a day as needed, Trelegy inhaler 1 puff daily, aspirin 8 1 mg daily, atorvastatin 20 mg daily at bedtime, famotidine 40 mg daily at bedtime, tamsulosin 0.4 mg takes 2 capsules by mouth daily, glipizide 10 mg 2 times a day and that is with breakfast and with s upper, Claritin 10 mg daily, metformin 500 mg takes 2 tablets 2 times a day with meal, montelukast 10 mg daily. Review of Systems: Musculoskeletal: As mentioned above. Respiratory: As mentioned above. All other systems reviewed and negative. Past Medical History: Significant for type 2 diabetes mellitus, COPD, pulmonary nodule, hypertension , hyperlipidemia, abdominal aortic aneurysm, gastroesophageal reflux disease, nonalcoholic fatty live r disease, cervical spondylosis, osteoarthritis at multiple sites. Past Surgical History: Negative. Family History: Parents with congestive heart failure. Brother with COVID-19. Social History: Positive for current daily smoking. Use of alcohol negative. Immunization History: The patient's COVID-19 vaccine was on April 03, 2020, April 30, 2020, and February 04, 2021. Influenza vaccine was in December 2020. Physical Examination: Vital Signs: Temperature 97.2, pulse 87, respiratory rate 20, blood pressure 146/91, oxygen saturati on 96% on 4 L nasal cannula oxygen. Height 5 feet 11 inches, weight 230 pounds. General: Awake, alert, oriented, not in distress. HEENT: Head atraumatic, normocephalic. Conjunctivae nonerythematous. Sclerae white. Mouth, no thr ush or edema noted. Ears/Nose, no mass, lesion, discharge noted. Neck: Supple. No JVD, lymph nodes, bruit, thyromegaly noted. Lungs: Clear to auscultation. No wheezing. No rales. Diminished air entry on the left side compar ed to the right side. Heart: Normal heart sounds, no murmur or gallop. Abdomen: Soft, bowel sounds normal. No guarding, rigidity, tenderness, mass, hepatosplenomegaly, dis tention, or bruit noted. Extremities: No leg edema. No calf tenderness. Skin: No rash, ulcer, cellulitis. Lymphatics: No lymph node enlargement in neck, supraclavicular, infraclavicular region. Neuro: No focal neurological deficit. Chest: Shows presence of chest tube in the left lateral chest cavity draining hemorrhagic fluid. External Genitalia: Deferred. Rectal: Deferred. Laboratory Data: White count 14.4, hemoglobin 15.1, platelets 246. Sodium 131, potassium 4.6, chlor mala 99, bicarb 25, BUN 11, creatinine 0.92, glucose 213. COVID-19 test negative. CAT scan per traum a protocol shows left clavicle fracture, multiple rib fractures on the left side from rib #3 to #8 wi th 40% pneumothorax on the left side. Impression: 1.Pneumothorax, traumatic, left side. 2.Multiple left-sided rib fractures. 3.Left clavicle fracture. 4.Chronic obstructive pulmonary disease. 5.Hypertension. 6.Hyperlipidemia. 7.Abdominal aortic aneurysm. 8.Type 2 diabetes mellitus. 9.Osteoarthritis, multiple sites. 10.Benign prostatic hypertrophy. Plan: We will admit the patient to hospital for further evaluation and management of this problem. The patient is appropriate for inpatient and is expected to spend 2 midnights in hospital. Pain medi cations will be given per order, which is morphine. We will also give Zofran for nausea. Consult ge neral surgeon, Dr. Cartwright for chest tube management. Orthopedic surgeon will be consulted for clavicu lar fracture, which very likely will just be managed conservatively. We will go ahead and use oxygen replacement therapy as needed. For COPD, we will go ahead and start the patient on nebulizer treatm ent. We will continue tamsulosin for his benign prostatic hypertrophy. Diabetes will be managed wit h sliding scale insulin at this point and at appropriate time, we will start oral hypoglycemic medica tions. We will not use any aspirin products at this point. SCD was ordered for DVT prophylaxis and we will start other remaining home medication including statin therapy at appropriate time. Details of plan of treatment discussed with the patient's family member who is and also talked to the allison ankur's son on the phone. CARLOS/MODL Voice ID: [id number]
[2021-07-09] MEDS: HYDROMORPHONE HCL 1 MG/ML INJ IV PRN ×4 (10:59→21:02)
--- NOTE | 2021-07-09 11:37 | RAD REPORT ---
EXAM DESCRIPTION: RAD - Chest Single View - 07/09/2021 11:24 am CLINICAL HISTORY: chest tube placement COMPARISON: Chest Single View dated 07/08/2021; Chest Pa And Lat (2 Views) dated 06/28/2019; Chest Pa A nd Lat (2 Views) dated 02/09/2018; Chest Pa And Lat (2 Views) dated 02/08/2017; Head C Spine Cap W C on dated 07/08/2021 FINDINGS: Left-sided chest tube in place. No residual pneumothorax identified. Left basilar opacitie s noted which may be a combination of atelectasis and pleural fluid/ hemothorax. The right lung is cl ear. Heart size is within normal limits. Clavicle and rib fractures noted. IMPRESSION: No appreciable pneumothorax with left-sided chest tube in place. Presumably atelectasis with small volume of pleural fluid on the left side. .
--- NOTE | 2021-07-09 16:12 | P.CNS ---
Date of Consult: 07/09/21 Reason for consult: Multiple rib fractures and pneumothorax History of present illness: Patient is a 65-year-old gentleman who came to the emergency room after falling off of a horse yesterday. Patient is complaining of pain in his left shoulder and left chest. He is having difficulty taking a deep breath because of pain. He is short of breath. Patient had a chest tube placed in the emergency room. Follow-up chest x-ray revealed complete resolution of the pneumothorax that was present on the initial work-up. Patient underwent a CT of the neck, chest, abdomen, pelvis in the trauma work-up work- up. Patient is still having significant pain on morphine. Review of systems: No sore throat, runny nose, cough, headache, dizziness, chest pain on the right side or fever or chills. No neck or back pain. No abdominal pain. Past medical history: Hypertension, hyperlipidemia, type 2 diabetes, COPD, AAA, GERD Past surgical history: None Allergies: None Social history: Patient does smoke cigarettes and has been counseled, patient denies drinking alcohol. Family history: CHF, brother from COVID-19 pneumonia Vital signs: Stable, afebrile Physical exam: Awake, alert, oriented x3 Head and neck exam: Cranial nerves II through XII grossly within normal limits, throat clear, neck supple, no JVD, no neck masses, no spinous process tenderness or step-offs. Chest: Chest clear with diminished breath sounds on the left side. No evidence of crepitus. Significant tenderness on the left chest wall. Tenderness in the clavicular region on the left side. Heart: S1-S2 Abdomen: Soft, nondistended, nontender, positive bowel sounds Pelvis: Stable Extremity: Neurovascular intact, full range of motion, nontender Neuro: Nonfocal Diagnostic data: Laboratory data, chest x-ray and CT of the abdomen, pelvis, chest and neck reviewed Assessment: Status post fall with left clavicular comminuted fracture, multiple left-sided rib fractures and pneumothorax. Status post placement of left chest tube with complete resolution of the pneumothorax. Patient does not have an air leak at this time. Chest tube is only put out 50 cc of bloody fluid. Plan/recommendation: Parenteral pain management. We will stop the morphine and start Dilaudid. Continue [place] for mild to moderate pain. We will also try Toradol. Oxygen supplement as ordered and incentive spirometry. Physical therapy. We will repeat the chest x-ray tomorrow if there is no pneumo or airleak, we will place the chest tube to water seal. Hopefully, we can remove the chest tube on Wednesday and discharge patient by Wednesday. Plan of care discussed with the patient and Dr. Wayne. CC: Dr. Wayne's office
[2021-07-09] MEDS: KETOROLAC 30 MG/ML INJ IV PRN (16:51)
[2021-07-10] MEDS: HYDROCODONE/APAP 10/325 TAB PO SCH ×4 (00:36→20:06)
--- NOTE | 2021-07-10 00:53 | PN ---
Date of Progress Note: 07/09/2021 Subjective: The patient was seen this morning for followup, lying in bed, not in any distress. Over all, he is awake, alert, answering questions appropriately this morning. He has significant pain in his left chest area because of the rib fracture and pneumothorax, and he has been on morphine so far and that has not provided adequate pain control. Objective: Vital Signs: Reviewed. HEENT: Unremarkable. Lungs: Bilateral good equal air entry. Clear to auscultation. Heart: Heart sounds normal. Abdomen: Soft. Bowel sounds normal. No guarding, rigidity, tenderness, distention. Extremities: No leg edema. Labs: No new labs this morning. Impression: 1.Pneumothorax, traumatic, left side. 2.Multiple left-sided rib fractures. 3.Hypertension. 4.Chronic obstructive pulmonary disease. Plan: We will go ahead and continue current nebulizer treatment, oxygen replacement. Continue morph ine per order for pain, and I have added hydrocodone 10 mg on a scheduled basis to provide some adequ ate pain relief. We will continue to follow with Dr. Cartwright from General Surgery. Details were discu ssed with him, and he is managing the patient's chest tube. We will consult Physical Therapy. Empir ic antibiotic, ceftriaxone was started. Will continue that. Repeat blood work tomorrow, and I will see him tomorrow for followup. The patient's blood pressure was elevated this morning. His blood pressure was 164/80, pulse 97, and I have started him on metoprolol 12.5 mg 2 times a day. CARLOS/MODL Voice ID: [id number] Report ID: [id number]
[2021-07-10] MEDS: ALBUTEROL 2.5 MG/3 ML NEB SOL NEB SCH ×4 (01:20→19:35)
[2021-07-10] MEDS: IPRATROPIUM BROM 0.5MG/2.5ML NEB SCH ×4 (01:20→19:35)
[2021-07-10 05:58] LABS: Absolute Lymphocytes (CBC) 0.8 K/uL (0.7-4.9); Lymphocytes % 8.7 % (15.3-44.8); MPV 6.8 fL (7.6-11.3); RBC Red Blood Cell Count 4.44 M/uL (4.33-5.43)
[2021-07-10 06:16] LABS: Albumin 3.6 g/dL (3.4-5.0); Bilirubin Total 0.7 mg/dL (0.2-1.0); Magnesium 2.5 mg/dL (1.8-2.4); Potassium 4.1 mmol/L (3.5-5.1); Protein, Total 7.3 g/dL (6.4-8.2)
[2021-07-10] MEDS: HYDROMORPHONE HCL 1 MG/ML INJ IV PRN ×3 (08:42→15:09)
[2021-07-10] MEDS: FENTANYL 25 MCG/PATCH TD SCH (08:45)
[2021-07-10] MEDS: ENOXAPARIN 40 MG/0.4 ML SQ SCH (08:47)
[2021-07-10] MEDS: FAMOTIDINE 20 MG/2 ML VIAL IV SCH ×2 (08:47→21:42)
[2021-07-10] MEDS: BENZONATATE 100 MG CAP PO SCH ×3 (08:47→21:42)
[2021-07-10] MEDS: MONTELUKAST 10 MG TAB PO SCH (08:48)
[2021-07-10] MEDS: DOCUSATE NA/SENNA CONC 1 TAB PO SCH ×2 (08:48→21:42)
[2021-07-10] MEDS: CEFTRIAXONE 1,000 MG in NA CHLORIDE 0.9% 50 ML IVPB SCH (08:48)
[2021-07-10] MEDS: GLUCERNA SHAKE 237 ML CAN PO SCH ×3 (08:49→21:44)
[2021-07-10] MEDS: METOPROLOL TAR 25 MG TAB PO SCH ×2 (08:49→21:43)
[2021-07-10] MEDS: TRELEGY ELLIPTA IH SCH (08:49)
[2021-07-10] MEDS: TAMSULOSIN 0.4 MG SR CAP PO SCH (08:49)
--- NOTE | 2021-07-10 08:51 | RAD REPORT ---
EXAM DESCRIPTION: RAD - Chest Single View - 07/10/2021 5:55 am CLINICAL HISTORY: pneumothorax, chest tube Chest pain. COMPARISON: Chest Single View dated 07/09/2021; Chest Single View dated 07/08/2021; Chest Pa And Lat ( 2 Views) dated 06/28/2019; Chest Pa And Lat (2 Views) dated 02/09/2018 FINDINGS: Portable technique limits examination quality. Left-sided chest tube is in place directed cephalad. No measurable pneumothorax. Bilateral pulmonary opacities with small left pleural effusion appears mildly progressive since yesterday's study. Heart size is normal. IMPRESSION: Unchanged position of left-sided chest tube without measurable pneumothorax.
[2021-07-10] MEDS: INSULIN -REGULAR HUMAN 50 UNIT/0.5 ML ML SQ SCH ×4 (09:03→21:44)
[2021-07-10 18:31] LABS: Arterial Blood Carboxyhemoglob 1.9 % (0-1.5); Blood Gas Oxyhemoglobin 88.1 % (94-97); Blood O2 Saturation 90.9 % (92-98.5)
--- NOTE | 2021-07-10 18:34 | RAD REPORT ---
EXAM DESCRIPTION: [facility] Single View07/10/2021 6:21 pm CLINICAL HISTORY: Shortness of breath COMPARISON: Chest film earlier in the day FINDINGS: Left chest tube in place. A pneumothorax is not visualized. No significant change in the small left pleural effusion and mild bilateral pulmonary opacities. Left rib fractures are again demonstrated. Comminuted left clavicular fracture unchanged
[2021-07-10] MEDS: METHYLPREDNISOLONE 40 MG INJ IV SCH ×2 (20:06→21:00)
[2021-07-11] MEDS: KETOROLAC 30 MG/ML INJ IV PRN ×2 (00:13→23:04)
[2021-07-11] MEDS: HYDROCODONE/APAP 10/325 TAB PO SCH ×5 (00:14→23:04)
--- NOTE | 2021-07-11 00:28 | PN ---
Date of Progress Note: 07/10/2021 Subjective: This morning when I saw him, his was present with him at bedside. The patient was sitting in the chair. He still has significant pain which is almost continuous, and he is requiring IV Dilaudid and hydrocodone on a scheduled basis, but still, the pain is not under adequate control a s he reports. Any attempts to move or cough or even taking deep breath causes significant pain. Objective: Vital Signs: Reviewed. HEENT: Unremarkable. Lungs: Bilateral equal air entry. No wheezing, no rales. Not in any respiratory distress. Heart: Heart sounds normal. Abdomen: Soft. Bowel sounds normal. No guarding, rigidity, tenderness, distention. Extremities: No leg edema. Laboratory Data: White count 9.6, hemoglobin 14.9, platelets 220. Sodium 133, potassium 4.1, chlori de 99, bicarb 29, BUN 19, creatinine 1.03, glucose 209. Liver function tests unremarkable. Impression: 1.Multiple left-sided rib fractures. 2.Left clavicle fracture. 3.Pneumothorax, traumatic, left side, status post chest tube. 4.Chronic obstructive pulmonary disease. 5.Constipation. 6.Type 2 diabetes mellitus. Plan: The patient has very poor appetite, and he has not had a bowel movement since he has been in [facility]. I have encouraged him to eat his meals properly. We will start him on Glucerna supplem ent 3 times a day. We will start him on stool softener, Senokot-S two tablets 2 times a day and milk of magnesia daily as needed. Start him on Lovenox for DVT prophylaxis, and we will give benzonatate 100 mg every 6 hours to control his cough, which will help reducing chances of pain. We will also s tart him on fentanyl patch 25 mcg every 3 days and continue other current medications. I will see him tomorrow for followup. Physical Therapy to w ork with the patient. CARLOS/MODL Voice ID: [id number] Report ID: [id number]
[2021-07-11] MEDS: ALBUTEROL 2.5 MG/3 ML NEB SOL NEB SCH ×4 (02:32→20:00)
[2021-07-11] MEDS: IPRATROPIUM BROM 0.5MG/2.5ML NEB SCH ×4 (02:32→20:00)
[2021-07-11] MEDS: BENZONATATE 100 MG CAP PO SCH ×4 (02:34→20:30)
[2021-07-11] MEDS: METHYLPREDNISOLONE 40 MG INJ IV SCH ×3 (05:31→20:31)
[2021-07-11 05:36] VITALS: BMI 31.7
--- NOTE | 2021-07-11 07:26 | RAD REPORT ---
EXAM DESCRIPTION: RAD - Chest Single View - 07/11/2021 5:49 am CLINICAL HISTORY: Stopped chest tube suction, pneumothorax COMPARISON: Portable 07/10/2021 TECHNIQUE: AP portable chest image was obtained 07/11/2021 5:49 am . FINDINGS: Chest tube remains in place with tip in the medial left apex. No change in positioning. No identifiable pneumothorax on this examination. Anterior pneumothorax cannot be entirely excluded on portable imaging. No new or progressive lung parenchymal finding. No enlarging pleural fluid collection. Heart and vasculature are normal. No acute bony abnormality seen. No acute aortic findings suspected . IMPRESSION: No identifiable pneumothorax. No change in positioning of the chest tube. No acute chest finding.
[2021-07-11 07:43] LABS: Absolute Lymphocytes (CBC) 0.3 K/uL (0.7-4.9); Hematocrit 40.5 % (39.6-49.0); Lymphocytes % 3.4 % (15.3-44.8)
[2021-07-11 07:49] LABS: BUN Blood Urea Nitrogen 20 mg/dL (7-18); Bicarbonate 24 mmol/L (21-32); Glucose Level 249 mg/dL (74-106); Magnesium 2.3 mg/dL (1.8-2.4); Potassium 4.7 mmol/L (3.5-5.1); Sodium Level 129 mmol/L (136-145)
[2021-07-11] MEDS: CEFTRIAXONE 1,000 MG in NA CHLORIDE 0.9% 50 ML IVPB SCH (08:44)
[2021-07-11] MEDS: TAMSULOSIN 0.4 MG SR CAP PO SCH (08:45)
[2021-07-11] MEDS: ENOXAPARIN 40 MG/0.4 ML SQ SCH (08:45)
[2021-07-11] MEDS: INSULIN -REGULAR HUMAN 50 UNIT/0.5 ML ML SQ SCH ×4 (08:45→20:31)
[2021-07-11] MEDS: DOCUSATE NA/SENNA CONC 1 TAB PO SCH ×2 (08:46→20:30)
[2021-07-11] MEDS: FAMOTIDINE 20 MG/2 ML VIAL IV SCH ×2 (08:46→20:30)
[2021-07-11] MEDS: METOPROLOL TAR 25 MG TAB PO SCH ×2 (08:46→20:30)
[2021-07-11] MEDS: MONTELUKAST 10 MG TAB PO SCH (08:46)
[2021-07-11] MEDS: MAGNESIUM HYDROXIDE 8% 30 ML PO PRN (08:46)
[2021-07-11] MEDS: GLUCERNA SHAKE 237 ML CAN PO SCH ×3 (08:48→20:31)
[2021-07-11] MEDS: TRELEGY ELLIPTA IH SCH ×2 (09:00→20:32)
[2021-07-11] MEDS: HYDROMORPHONE HCL 1 MG/ML INJ IV PRN (13:45)
[2021-07-11] MEDS ORDERED: D10W 125 ML IV PRN (15:15)
--- NOTE | 2021-07-11 15:19 | P.PN ---
Date of Service: 07/11/21 Subjective: Patient is awake and alert. Complaining of chest pain when he coughs. Still requiring parenteral pain medication for pain control. Is using his incentive spirometry. He is working with physical therapy. Objective: Vital signs stable and afebrile Chest x-ray does not show any pneumo or pleural effusion. There is no airleak in the chest tube. Last shift patient has had minimal output from the chest tube. Procedure note: Under sterile condition, chest tube removed and an occlusive dressing applied. Patient tolerated the procedure in stable condition. Assessment: Multiple rib fractures on the left side and clavicular fracture. Status post left chest tube removal. Plan: Repeat chest x-ray this evening and in a.m. Encourage incentive spirometry, coughing and pulmonary toiletry. 1 patient's pain is controlled on oral medication and chest x-ray does not reveal any residual pneumothorax patient can be discharged from a surgical standpoint. CC: Dr. Wayne's office
[2021-07-11] MEDS: NICOTINE 14 MG/PAT TD SCH ×2 (17:55→18:00)
--- NOTE | 2021-07-11 18:47 | RAD REPORT ---
EXAM DESCRIPTION: [facility] Single View07/11/2021 6:34 pm CLINICAL HISTORY: Chest tube removal IMPRESSION: Left chest tube has been removed. A pneumothorax is not visualized
[2021-07-11] MEDS ORDERED: METHYLPREDNISOLONE 40 MG INJ IV SCH (20:00)
--- NOTE | 2021-07-11 22:02 | PN ---
Date of Progress Note: 07/11/2021 Subjective: The patient was seen this morning for followup. No new complaints, problems reported by the patient. He had uneventful night. He was transferred to ICU yesterday evening because of hypoxia and respiratory distress. Arterial blood gas was done, results reviewed. Chest x-ray was done, results reviewed. I did communicate with his son who is also a physician and he actually requested for us to try to transfer him to [place] to tertiary care center and per family's request, I did contact [facility] who did accept patient but unfortunately did not have any beds available and he is on the waiting list, and after that, we also tried to initiate transfer to [facility] in [place] and they did not have any beds available, notified about it and for closer observation the patient was moved to our ICU yesterday evening. Overnight his condition remained stable. He was started on high-flow oxygen yesterday evening because of this acute respiratory failure and hypoxia problem and he is on high-flow oxygen 30/60, that is 30 L/minute and 60% FiO2. He has maintained oxygen saturation around 95-96 percent overnight. He received his hydrocodone on a scheduled basis which is 10 mg every 6 hours and Toradol overnight and did not require any Dilaudid and his pain was well controlled. He slept well. This morning, when I saw him, he was very comfortable, did not have any complaints this morning. Not in any respiratory distress. Objective: Vital Signs: Reviewed. HEENT: Unremarkable. Lungs: Bilateral equal air entry with presence of some rales in the lower lung jesus. Not in any respiratory distress. Heart: Sounds normal. Abdomen: Soft. Bowel sounds normal. No guarding, rigidity, tenderness, distention. Extremity: No leg edema. Impression: 1. Fracture, left clavicle. 2. Fracture, left side multiple ribs. 3. Pneumothorax, traumatic. 4. Chronic obstructive pulmonary disease. 5. Acute respiratory failure with hypoxia. 6. Hypertension. 7. Type 2 diabetes mellitus. 8. Hyponatremia. Plan: This morning after I saw him blood work was done. His sodium level was slightly low at 129 and his blood glucose remains between 200-300 range. We will continue diabetes management with sliding scale insulin. Continue antihypertensive medication with his metoprolol so far he was getting 12.5 mg 2 times a day, but I will increase dose to 25 mg 2 times a day. But I will increase dose to 25 mg 2 times a day. Yesterday evening I did start him on Solu-Medrol 40 mg IV every 8 hours and we will continue that along with current pain medication. This morning, nurse was advised to give him one dose of milk of magnesia. His appetite is very poor. He was encouraged to eat all his 3 meals and also was encouraged to use Glucerna supplement. We will continue stool softener which is Senokot-S 2 tablets 2 times a day. Continue DVT prophylaxis with Lovenox. Physical therapy to work with the patient and details were discussed with the patient's son this morning as well. We will see him tomorrow for followup. Will continue to follow with Dr. Cartwright regarding chest tube. CARLOS/MODL Voice ID: [id number] Report ID: [id number] MTDD
[2021-07-12] MEDS: IPRATROPIUM BROM 0.5MG/2.5ML NEB SCH ×4 (02:30→20:00)
[2021-07-12] MEDS: ALBUTEROL 2.5 MG/3 ML NEB SOL NEB SCH ×4 (02:30→20:00)
[2021-07-12 05:08] LABS: BUN Blood Urea Nitrogen 20 mg/dL (7-18); Bicarbonate 24 mmol/L (21-32); Glucose Level 240 mg/dL (74-106); Magnesium 2.3 mg/dL (1.8-2.4); Potassium 4.6 mmol/L (3.5-5.1); Sodium Level 127 mmol/L (136-145)
[2021-07-12] MEDS: HYDROCODONE/APAP 10/325 TAB PO SCH ×3 (05:50→17:14)
[2021-07-12] MEDS: BENZONATATE 100 MG CAP PO SCH ×3 (05:50→20:41)
[2021-07-12] MEDS: METHYLPREDNISOLONE 40 MG INJ IV SCH ×2 (05:50→20:40)
--- NOTE | 2021-07-12 08:01 | RAD REPORT ---
EXAM DESCRIPTION: RAD - Chest Single View - 07/12/2021 6:31 am CLINICAL HISTORY: s/p chest tube removal Chest pain. COMPARISON: Chest Single View dated 07/11/2021; Chest Single View dated 07/11/2021; Chest Single View dated 07/10/2021; Chest Single View dated 07/10/2021 FINDINGS: Portable technique limits examination quality. No measurable pneumothorax is seen on the left. Bilateral pulmonary opacities are again seen, unchang ed. The heart is upper limit normal in size.Superior left posterior rib fractures are seen. IMPRESSION: No left-sided pneumothorax is seen.
[2021-07-12] MEDS: TAMSULOSIN 0.4 MG SR CAP PO SCH (09:00)
[2021-07-12] MEDS: CEFTRIAXONE 1,000 MG in NA CHLORIDE 0.9% 50 ML IVPB SCH (09:00)
[2021-07-12] MEDS: MONTELUKAST 10 MG TAB PO SCH (09:00)
[2021-07-12] MEDS: METOPROLOL TAR 25 MG TAB PO SCH (09:00)
[2021-07-12] MEDS: ENOXAPARIN 40 MG/0.4 ML SQ SCH (09:00)
[2021-07-12] MEDS: FAMOTIDINE 20 MG/2 ML VIAL IV SCH ×2 (09:00→20:40)
[2021-07-12] MEDS: DOCUSATE NA/SENNA CONC 1 TAB PO SCH ×2 (09:00→20:42)
[2021-07-12] MEDS: GLUCERNA SHAKE 237 ML CAN PO SCH ×2 (09:00→20:44)
[2021-07-12] MEDS ORDERED: METOPROLOL TAR 25 MG TAB PO ONE (11:00)
[2021-07-12] MEDS ORDERED: HYDROMORPHONE HCL 1 MG/ML INJ IV PRN (11:37)
[2021-07-12] MEDS: NA CHLORIDE 0.9% 1,000 ML IV SCH (12:00)
--- NOTE | 2021-07-12 12:09 | P.PN ---
Date of Service: 07/12/21 Subjective: Patient is awake and alert. Pain is better. Patient is requiring less parenteral pain medication. No respiratory distress. Objective: Vital signs stable and afebrile Repeat chest x-ray this morning does not reveal any evidence of pneumothorax. Dressing is clean dry and intact Assessment: Multiple rib fractures on the left side and clavicular fracture. Status post left chest tube removal. Plan: Encourage incentive spirometry, coughing and pulmonary toiletry. Once patient's pain is controlled on oral medication and patient is mobilizing without much difficulty, then patient can be discharged home. CC: Dr. Wayne's office
--- NOTE | 2021-07-12 15:39 | PN ---
Date of Progress Note: 07/12/2021 Subjective: The patient was seen this morning for followup. No new complaints or problems reported by him. His son and were present at bedside. The patient was lying in bed in ICU. He slept ve ry well last night. His pain is under much better control with current pain medications. His appeti te is poor, but improving as reports. He still has not had a bowel movement so far. Denies any abdominal discomfort. No nausea, no vomiting. He is maintaining adequate oxygenation on nasal claudine johana oxygen and today he looks lot more comfortable. As of yesterday morning, I saw little bit rosalie brar, which was also obvious today when I was talking to him and family also has noted that. Objective: Vital Signs: Reviewed. HEENT: Unremarkable. Lungs: Bilateral good equal air entry. Clear to auscultation. No wheezing. No rales. Not in any respiratory distress. Left upper chest has some bruising from a clavicular fracture. Heart: Sounds normal. Abdomen: Soft. Bowel sounds normal. No guarding, rigidity, tenderness, or distention. Extremities: No leg edema. Laboratory Data: Chest x-ray shows no evidence of left-sided pneumothorax and the chest tube was rem attila yesterday. Bilateral pulmonary opacities present, unchanged. Sodium 127, potassium 4.6, chlori de 97, bicarb 24, BUN 20, creatinine 0.75, glucose 240, magnesium 2.1. Impression: 1.Left-sided pneumothorax, resolved. 2.Multiple left-sided rib fractures. 3.Left clavicular fracture. 4.Hyponatremia. 5.Chronic obstructive pulmonary disease. 6.Acute respiratory failure with hypoxia. 7.Type 2 diabetes mellitus. Plan: We will go ahead and start the patient on metformin 500 mg 2 times a day, continue insulin sli ding scale for diabetes management. For high blood pressure, his blood pressure readings reviewed. He is getting metoprolol 25 mg 2 times a day, we will increase dose to 50 mg 2 times a day. Continue oxygen replacement. Continue current pain medications, but reduce Dilaudid from 1 mg every 2 hours as needed to every 4 hours as needed and reduce hydrocodone from every 6 hours to 3 times a day. The patient has not had a bowel movement and nurse was advised to give 1 dose of milk of jorge michele. We will continue stool softener. Continue current antibiotics and DVT prophylaxis. The chadd del cid is medically stable for transfer out of ICU to medical floor and see copy of transfer order for details. His intake output records reviewed. He is in negative fluid balance and his hyponatremia i s likely due to some volume depletion, so we will go ahead and try to address that with IV fluid norm al saline at 75 cc/hour x1 L. We will repeat blood work tomorrow. Details and plan of treatment dis cussed with the patient and his family members, son and . Nicotine patch was applied yesterday b ecause of his history of smoking to assist him with nicotine withdrawal. We also talked about reduci ng alcohol consumption. He normally drinks anywhere between 3-4 beers a day and I did advise him to cut it down to only 12 pounds 1 beer a day, best option would be no alcohol but if he wants to, no mo re than one 12-ounce beer a day. CARLOS/MODL Voice ID: [id number] Report ID: [id number]
[2021-07-12] MEDS: METFORMIN HCL 500 MG TAB PO SCH (16:29)
[2021-07-12] MEDS: INSULIN -REGULAR HUMAN 50 UNIT/0.5 ML ML SQ SCH ×2 (17:15→20:43)
[2021-07-12] MEDS: NICOTINE 14 MG/PAT TD SCH (17:16)
[2021-07-12] MEDS: METOPROLOL TAR 50 MG TAB PO SCH (20:42)
[2021-07-12] MEDS: TRELEGY ELLIPTA IH SCH (20:55)
[2021-07-12] MEDS: KETOROLAC 30 MG/ML INJ IV PRN (21:14)
[2021-07-13] MEDS: HYDROCODONE/APAP 10/325 TAB PO SCH ×2 (01:00→05:50)
[2021-07-13] MEDS: BENZONATATE 100 MG CAP PO SCH ×4 (01:10→20:17)
[2021-07-13] MEDS: NA CHLORIDE 0.9% 1,000 ML IV SCH (01:20)
[2021-07-13] MEDS: ALBUTEROL 2.5 MG/3 ML NEB SOL NEB SCH ×4 (02:00→19:56)
[2021-07-13] MEDS: IPRATROPIUM BROM 0.5MG/2.5ML NEB SCH ×4 (02:00→19:56)
[2021-07-13 06:10] LABS: Absolute Lymphocytes (CBC) 0.6 K/uL (0.7-4.9); Lymphocytes % 5.6 % (15.3-44.8); MPV 6.8 fL (7.6-11.3); RBC Red Blood Cell Count 4.33 M/uL (4.33-5.43)
[2021-07-13 06:18] LABS: BUN Blood Urea Nitrogen 23 mg/dL (7-18); Bicarbonate 28 mmol/L (21-32); Glucose Level 246 mg/dL (74-106); Magnesium 2.4 mg/dL (1.8-2.4); Potassium 4.5 mmol/L (3.5-5.1); Sodium Level 128 mmol/L (136-145)
[2021-07-13 08:23] LABS: Blood Morphology Comment NOT SEEN (NOT SEEN); Platelet Estimate ADEQ
[2021-07-13] MEDS: TAMSULOSIN 0.4 MG SR CAP PO SCH (08:46)
[2021-07-13] MEDS: METHYLPREDNISOLONE 40 MG INJ IV SCH (08:46)
[2021-07-13] MEDS: FAMOTIDINE 20 MG/2 ML VIAL IV SCH (08:46)
[2021-07-13] MEDS: ENOXAPARIN 40 MG/0.4 ML SQ SCH (08:47)
[2021-07-13] MEDS: ACETAMINOPHEN 500 MG TAB PO PRN ×3 (08:47→18:29)
[2021-07-13] MEDS: FENTANYL 25 MCG/PATCH TD SCH (08:47)
[2021-07-13] MEDS: MONTELUKAST 10 MG TAB PO SCH (08:48)
[2021-07-13] MEDS: METFORMIN HCL 500 MG TAB PO SCH ×2 (08:48→16:29)
[2021-07-13] MEDS: METOPROLOL TAR 50 MG TAB PO SCH ×2 (08:48→20:17)
[2021-07-13] MEDS: DOCUSATE NA/SENNA CONC 1 TAB PO SCH ×2 (08:48→20:17)
[2021-07-13] MEDS: INSULIN -REGULAR HUMAN 50 UNIT/0.5 ML ML SQ SCH ×5 (08:49→20:16)
[2021-07-13] MEDS: CEFTRIAXONE 1,000 MG in NA CHLORIDE 0.9% 50 ML IVPB SCH (08:50)
[2021-07-13] MEDS: GLUCERNA SHAKE 237 ML CAN PO SCH ×3 (09:00→20:18)
[2021-07-13] MEDS: AMLODIPINE 5 MG TAB PO SCH (09:02)
[2021-07-13] MEDS: HYDROCODONE/APAP 7.5/325 MG TAB PO SCH ×3 (11:21→23:13)
--- NOTE | 2021-07-13 11:54 | PN ---
Date of Progress Note: 07/13/2021 Subjective: The patient was seen this morning for followup. No new complaints or problems reported by the patient. He was sitting at bedside. His was with him. Overall, his pain is under much better control. He reports that only time he notices pain is when he coughs or when he moves in a ce rtain way. Otherwise, he does not have any ongoing pain. He denies any shortness of breath. Report s that he had a small bowel movement yesterday. No abdominal pain. No nausea. No vomiting. He is eating approximately 50% of his meals, which is better compared to before. He remains on oxygen arou nd 4 L/minute nasal cannula. Yesterday, he did ambulate with physical therapy. Objective: Vital Signs: Reviewed. Blood pressure remains higher than normal. HEENT: Examination unremarkable. Lungs: Bilateral good equal air entry. Presence of some scattered wheezing noted in lower lung fiel ds. Not using any accessory muscles of respiration. Heart: Sounds normal. Abdomen: Soft. Bowel sounds normal. No guarding, rigidity, tenderness, or distention. Extremities: No leg edema. Laboratory Data: White count 10.2, hemoglobin 14.2, platelets 249. Sodium 128, potassium 4.5, chlor mala 96, bicarb 28, BUN 23, creatinine 0.74, glucose 246. Impression: 1.Multiple left-sided rib fracture. 2.Left clavicular fracture. 3.Pneumothorax, traumatic, resolved. 4.Acute exacerbation of chronic obstructive pulmonary disease. 5.Hyponatremia. 6.Hypertension. 7.Type 2 diabetes mellitus. Plan: The patient received 1 L of IV fluid per order. We will not give any more IV fluid. We will monitor blood work. Repeat blood test tomorrow morning. His pain is under much better control and c onsidering that we will reduce dose of his hydrocodone from 10 mg every 6 hours to 7.5 mg every 6 nadrade rs. Continue p.r.n. Dilaudid per order and continue fentanyl patch 25 mcg per order. Ambulation was encouraged with physical therapy. We will go ahead and add amlodipine 5 mg daily to help control bl ood pressure better. Continue metoprolol and continue Lovenox for DVT prophylaxis. I will see him t omorrow for followup. We will stop IV Solu-Medrol and start him on prednisone 20 mg 2 times a day. Continue ceftriaxone. CARLOS/MODL Voice ID: [id number] Report ID: [id number]
[2021-07-13] MEDS: NICOTINE 14 MG/PAT TD SCH (16:34)
[2021-07-13] MEDS: predniSONE 20 MG TAB PO SCH (20:17)
[2021-07-13] MEDS: TRELEGY ELLIPTA IH SCH (20:18)
[2021-07-14] MEDS: IPRATROPIUM BROM 0.5MG/2.5ML NEB SCH ×3 (02:15→19:52)
[2021-07-14] MEDS: ALBUTEROL 2.5 MG/3 ML NEB SOL NEB SCH ×5 (02:15→19:53)
[2021-07-14] MEDS: BENZONATATE 100 MG CAP PO SCH ×4 (02:24→21:33)
[2021-07-14] MEDS: HYDROCODONE/APAP 7.5/325 MG TAB PO SCH ×4 (05:49→22:20)
[2021-07-14 06:40] LABS: BUN Blood Urea Nitrogen 17 mg/dL (7-18); Bicarbonate 29 mmol/L (21-32); Glucose Level 228 mg/dL (74-106); Sodium Level 130 mmol/L (136-145)
[2021-07-14 06:41] LABS: Potassium 4.9 mmol/L (3.5-5.1)
[2021-07-14] MEDS: ENOXAPARIN 40 MG/0.4 ML SQ SCH (08:37)
[2021-07-14] MEDS: AMLODIPINE 5 MG TAB PO SCH (08:38)
[2021-07-14] MEDS: predniSONE 20 MG TAB PO SCH ×2 (08:38→21:31)
[2021-07-14] MEDS: MONTELUKAST 10 MG TAB PO SCH (08:38)
[2021-07-14] MEDS: DOCUSATE NA/SENNA CONC 1 TAB PO SCH ×2 (08:39→21:31)
[2021-07-14] MEDS: METOPROLOL TAR 50 MG TAB PO SCH ×2 (08:40→21:31)
[2021-07-14] MEDS: METFORMIN HCL 500 MG TAB PO SCH ×2 (08:40→16:35)
[2021-07-14] MEDS: TAMSULOSIN 0.4 MG SR CAP PO SCH (08:40)
[2021-07-14] MEDS: GLUCERNA SHAKE 237 ML CAN PO SCH ×4 (08:41→21:32)
[2021-07-14] MEDS: INSULIN -REGULAR HUMAN 50 UNIT/0.5 ML ML SQ SCH ×4 (08:42→21:47)
[2021-07-14] MEDS: CEFTRIAXONE 1,000 MG in NA CHLORIDE 0.9% 50 ML IVPB SCH (08:43)
[2021-07-14] MEDS: ACETAMINOPHEN 500 MG TAB PO PRN ×2 (08:46→14:13)
[2021-07-14] MEDS: MAGNESIUM HYDROXIDE 8% 30 ML PO PRN (11:49)
[2021-07-14] MEDS: NICOTINE 14 MG/PAT TD SCH (16:36)
[2021-07-14] MEDS: TRELEGY ELLIPTA IH SCH (21:00)
[2021-07-14] MEDS: KETOROLAC 30 MG/ML INJ IV PRN (21:34)
--- NOTE | 2021-07-15 | PN ---
Date of Progress Note: 07/14/2021 Subjective: Patient was seen this morning for followup. He was lying in bed, not in distress. Billy es any new complaints. He slept very well last night and his pain is under very good control with cu rrent pain medications. Objective: Vital Signs: Reviewed. HEENT: Unremarkable. Lungs: Clear to auscultation. Cardiac: Heart sounds normal. Abdomen: Soft. Bowel sounds normal. No guarding, rigidity, tenderness, distention. Extremities: No leg edema. Laboratory Data: Sodium 130, potassium 4.9, chloride 98, bicarb 29, BUN 17, creatinine 0.65, glucose 228. Impression: 1.Multiple left-sided rib fracture. 2.Left clavicular fracture. 3.Traumatic pneumothorax, resolved. 4.Chronic obstructive pulmonary disease. 5.Diabetes mellitus. 6.Acute exacerbation of chronic obstructive pulmonary disease. Plan: We will go ahead and discontinue fentanyl patch. Continue current hydrocodone per order. We will request social service consultation to make arrangements for home health care services. Possibl e discharge tomorrow and will try to wean off oxygen today if possible. I will see him tomorrow for followup. CARLOS/MODL Voice ID: [id number] Report ID: [id number]
[2021-07-15] MEDS: BENZONATATE 100 MG CAP PO SCH ×2 (01:38→08:00)
[2021-07-15] MEDS: KETOROLAC 30 MG/ML INJ IV PRN (01:38)
[2021-07-15] MEDS: ALBUTEROL 2.5 MG/3 ML NEB SOL NEB SCH ×2 (02:00→08:01)
[2021-07-15] MEDS: IPRATROPIUM BROM 0.5MG/2.5ML NEB SCH ×2 (02:00→08:01)
[2021-07-15 04:36] VITALS: TEMP 97.6
[2021-07-15 04:46] VITALS: O2SAT 96
[2021-07-15] MEDS: HYDROCODONE/APAP 7.5/325 MG TAB PO SCH (05:03)
[2021-07-15] MEDS: ENOXAPARIN 40 MG/0.4 ML SQ SCH (08:23)
[2021-07-15] MEDS: TAMSULOSIN 0.4 MG SR CAP PO SCH (08:23)
[2021-07-15] MEDS: METOPROLOL TAR 50 MG TAB PO SCH (08:24)
[2021-07-15] MEDS: MONTELUKAST 10 MG TAB PO SCH (08:24)
[2021-07-15] MEDS: METFORMIN HCL 500 MG TAB PO SCH (08:24)
[2021-07-15] MEDS: DOCUSATE NA/SENNA CONC 1 TAB PO SCH (08:25)
[2021-07-15] MEDS: AMLODIPINE 5 MG TAB PO SCH (08:25)
[2021-07-15] MEDS: predniSONE 20 MG TAB PO SCH (08:25)
[2021-07-15] MEDS: GLUCERNA SHAKE 237 ML CAN PO SCH (08:26)
[2021-07-15] MEDS: CEFTRIAXONE 1,000 MG in NA CHLORIDE 0.9% 50 ML IVPB SCH (08:26)
[2021-07-15 08:27] VITALS: BP 181/84
[2021-07-15] MEDS: INSULIN -REGULAR HUMAN 50 UNIT/0.5 ML ML SQ SCH (08:38)
--- NOTE | 2021-07-16 08:48 | DS ---
Date of Discharge: 07/15/2021 Physical Examination: HEENT: Unremarkable. Lungs: Clear to auscultation. Heart: Sounds normal. Abdomen: Soft. Bowel sounds normal. No guarding, rigidity, tenderness, or distention. Extremities: No leg edema. Discharge Medications And Instructions: 1.Continue all prior home medications. 2.Follow up at my office on 07/22/2021. 3.Cefuroxime 250 mg 2 times a day for 5 days. 4.Prednisone 10 mg take 2 tablets daily for 4 days, then 1 tablet daily for 4 days, then 1/2 tablet daily for 4 days, then stop. 5.[place] 7.5 mg 4 times a day as needed for pain. 6.Benzonatate 100 mg 4 times a day as needed for cough. 7.Amlodipine 5 mg daily in morning. 8.Metoprolol 50 mg 2 times a day. Laboratory Data: Last chemistry yesterday; sodium 130, potassium 4.9, chloride 98, bicarb 29, BUN 17 , creatinine 0.65, glucose 228. CBC on 07/13/2021; white count 10.2, hemoglobin 14.2, platelets 249. Upon admission; white count 14.4, hemoglobin 15.1, platelets 240. Hospital Course: This is a 65-year-old very pleasant male patient, who was admitted to the hospital after he fell down. The patient was riding horse and while he was sitting on the saddle which was no t secured and as he leaned over, he fell down on the ground and on the ground, there was a tree stump and he directly fell over that. The patient started to have shortness of breath, was brought into [facility] emergency room. After evaluation, it did reveal that the patient had multiple left-sided rib frac tures, 40% pneumothorax on the left side, and left clavicular fracture. The patient had a chest tube placed in emergency room. He was admitted to intensive care unit and Dr. Cartwright from General Surgery was consulted. Orthopedic surgeon, Dr. Ellis. was consulted, but he has not seen the patient dur ing this hospitalization. The patient's chest tube was removed after 2 to 3 days and repeat chest x- ray has not shown any recurrent of pneumothorax. Dr. Vivar had suggested when ER had contacted [facility] that eventually the patient may need a left clavicle surgery, but not right now. The patient was started on empiric antibiotic, ceftriaxone upon admission. Initially, he required a lot of intensive pain medications, IV morphine was not helping so it was changed to Dilaudid and he was given schedul ed doses of hydrocodone 10 mg dose which was later on reduced to 7.5 mg. We also added fentanyl patc h 25 mcg to control pain and IV steroid was started over the weekend when he started to have shortnes s of breath with hypoxia. He also received IV Toradol. Once chest tube was removed and his conditio n was stable, he was transferred out of ICU to regular room. Physical Therapy was consulted. He has started to ambulate well. He had some hyponatremia, which was thought to be due to volume depletion and he was given 1 L of IV fluid and his sodium level came up. Lowest sodium level was 127. I will see him next week on outpatient basis and we will refer him to insurance claims specialist at that time. The patient's appetite has improved. He had some constipation, which has also resolved now. The pat ient does not require any oxygen as of yesterday. He was discharged to go home in stable and improve d condition today. Final Diagnoses: 1.Pneumothorax, traumatic, left side. 2.Multiple left-sided rib fractures from 3rd to 8th rib on the left side. 3.Left clavicle fracture. 4.Acute exacerbation of chronic obstructive pulmonary disease. 5.Acute respiratory failure with hypoxia. 6.Hyponatremia. 7.Volume depletion. 8.Hypertension. 9.Hyperlipidemia. 10.Abdominal aortic aneurysm. 11.Type 2 diabetes mellitus. 12.Osteoarthritis, multiple sites. 13.Benign prostatic hypertrophy. CARLOS/MODL Voice ID: [id number] Report ID: [id number]
== END 2021-07-15 09:15 | disposition home health service (06) | DRG 199 ==
LOC: ER 14:56 → ERHOLD 17:58 → 2ND 21:06 → 3RD-ICU 07-10 23:54 → 2ND 07-12 14:50
PROVIDERS: ADMIT Internal Medicine; ATTEND Internal Medicine
PROC: 0W9B30Z Drainage of Left Pleural Cavity with Drainage Device, Percutaneous Approach (ICD-10-PCS; principal; 2021-07-08)
PROC: 5A0955A Assistance with Respiratory Ventilation, Greater than 96 Consecutive Hours, High Flow/Velocity Cannula (ICD-10-PCS; 2021-07-10)
DX: S27.0XXA Traumatic pneumothorax, initial encounter (principal); J96.01 Acute respiratory failure with hypoxia; S22.42XA Multiple fractures of ribs, left side, initial encounter for closed fracture; E87.1 Hypo-osmolality and hyponatremia; J44.1 Chronic obstructive pulmonary disease with (acute) exacerbation; S42.002A Fracture of unspecified part of left clavicle, initial encounter for closed fracture; V80.010A Animal-rider injured by fall from or being thrown from horse in noncollision accident, initial encounter; E11.9 Type 2 diabetes mellitus without complications; R91.1 Solitary pulmonary nodule; I10 Essential (primary) hypertension; E78.5 Hyperlipidemia, unspecified; I71.4 Abdominal aortic aneurysm, without rupture; K21.9 Gastro-esophageal reflux disease without esophagitis; K76.0 Fatty (change of) liver, not elsewhere classified; M15.9 Polyosteoarthritis, unspecified; F17.200 Nicotine dependence, unspecified, uncomplicated; N40.0 Benign prostatic hyperplasia without lower urinary tract symptoms; E86.9 Volume depletion, unspecified; Z23 Encounter for immunization
CPT/HCPCS: 36415; 70450; 71045; 71260; 72125; 74177; 80048; 80053; 82565; 82805; 82947; 83735; 85025; 90714; 94002; 94003; 94010; 94640; 94760; 97110; 97116; 97161; 97530; 99285; J1170; J1650; J1815; J2405; J2920; J3010; J3490; J7030; J7512; Q9967; U0003

== ENCOUNTER 2023-04-02 15:55 | Inpatient (IN) | payer OTHER, MEDICARE ==
--- OUTSIDE RECORDS SUMMARY | 2023-04-02 16:11 | XMS REPORT | Continuity of Care Document ---
Author Name Unknown Address [address] [facility] [address] [place] [address] [facility] Address [address] [facility] [address] [address] [place] [address] Care Team Providers Care Spiral Winder Name Role Phone Unknown, Physician Primary Care Physician SOFIA Kaminski Attending Clinician Unavailable Naren Yeung Attending Clinician [phone] SOFIA JOHNSON Attending Clinician UnavailTeresa Tuttle Attending Clinician [phone] Millie Smith MA Attending Clinician Unavailable Anusha Gonzales MD Attending Clinician [phone], [facility] Attending Clinician Unavailable ANUSHA GONZALES Attending Clinician Unavailable Foreign Martin DO Attending Clinician [phone] Doctor Unassigned, [place] Attending Clinician U navailable Bessy Huntley Attending Clinician [phone] BESSY THIBODEAUX Attending Clinician Unavailable Abram Saavedra MD Attending Clinician [phone] Lab, [facility] Fam Pob I Attending Clinician Unavailab Amalia Wilson PA-C Attending Clinician [phone] AMALIA ORELLANA Attending Clinician Unavailable Payers Payer Name Policy Type Policy Number Effective Date Expirati on Date Source [facility] MEDICARE SUPPLEMENT [id number] 2021 00:00:00 [facility] MEDICARE SUPPLEMENT P [id number] [facility] [id number] 2016 00:00:00 Problems Condition Name Condition Details Condition Category Status Onset Date Resolution Date Last Treatment Date Treating Clinician Comments Source Displaced fracture of shaft of left clavicle, initial encounter for closed fracture Displaced fracture of shaft of left clavicle, initial encounter for closed fracture Disease Active 08-01 00:00: 00 [facility] Callus of foot Callus of foot Disease Active 09-29 00:00: 00 [facility] Type 2 diabetes mellitus without complicati on, without long-term current use of insulin Type 2 diabetes mellitus without complicati on, without long-term current use of insulin Disease Active 03-25 00:00: 00 [facility] Dyslipidem ia Dyslipidem ia Disease Active 03-25 00:00: 00 [facility] Essential hypertensi on Essential hypertensi on Disease Active 03-25 00:00: 00 [facility] Allergies, Adverse Reactions, Alerts Allergy Name Allergy Type Status Severity Reaction(s) Onset Date Inactive Date Treating Clinician Comments Source NO KNOWN ALLERGIE S Drug Class Active [facility] Social History Social Habit Start Date Stop Date Quantity Comments Source History of tobacco use Cigarette Smoker [facility] to SARS-CoV-2 (event) 2022-07-12 00:00:00 2022-07-22 11:49:00 Not sure [facility] Alcohol intake 2020-05-28 00:00:00 2020-05-28 00:00:00 0 /d [facility] Cigarettes smoked current (pack per day) - Reported 2019-11-29 00:00:00 2019-11-29 00:00:00 [facility] Cigarette pack-years 2019-11-29 00:00:00 2019-11-29 00:00:00 [facility] Tobacco use and exposure 2019-11-29 00:00:00 2019-11-29 00:00:00 Smokeless tobacco non-user [facility] History of Social function 2019-11-29 00:00:00 2019-11-29 00:00:00 [facility] Sex Assigned At 1955 00:00:00 1955 00:00:00 [facility] Smoking Status Start Date Stop Date Source Tobacco smoking consumption unknown [facility] Smokes tobacco daily 2019-11-29 00:00:00 [facility] Medications Ordered Medication Name Filled Medication Name Start Date Stop Date Current Medication? Ordering Clinician Indication Dosage Frequency Signature (SIG) Comments Components Source acetaminoph en-codeine (Tylenol #3) 300-30 MG tablet 10-15 09:58: 31 Yes 1{tbl} Q6H Take 1 tablet by mouth every 6 (six) hours if needed for pain. [facility] traMADol (Ultram) 50 MG tablet 08-13 00:00: 00 Yes [id number] 50mg Q6H Take 1 tablet (50 mg total) by mouth every 6 (six) hours. Alternate with Tylenol [facility] traMADol (Ultram) 50 MG tablet 08-13 00:00: 00 Yes [id number] 50mg Q6H Take 1 tablet (50 mg total) by mouth every 6 (six) hours. Alternate with Tylenol [facility] methocarbam ol (Robaxin) 750 MG tablet 08-13 00:00: 00 Yes [id number] 750mg Q.[id number] 3D Take 1 tablet (750 mg total) by mouth 3 (three) times a day for 10 days. [facility] traMADol (Ultram) 50 MG tablet 08-13 00:00: 00 Yes [id number] 50mg Q6H Take 1 tablet (50 mg total) by mouth every 6 (six) hours. Alternate with Tylenol [facility] methocarbam ol (Robaxin) 750 MG tablet 08-13 00:00: 00 Yes [id number] 750mg Q.[id number] 3D Take 1 tablet (750 mg total) by mouth 3 (three) times a day for 10 days. [facility] gabapentin (Neurontin) 100 MG capsule 08-13 00:00: 00 08-14 04:59 :00 No [id number] 100mg Q.[id number] 3D Take 1 capsule (100 mg total) by mouth 3 (three) times a day. [facility] gabapentin (Neurontin) 100 MG capsule 08-13 00:00: 00 08-14 04:59 :00 No [id number] 100mg Q.[id number] 3D Take 1 capsule (100 mg total) by mouth 3 (three) times a day. [facility] gabapentin (Neurontin) 100 MG capsule 08-13 00:00: 00 08-14 04:59 :00 No [id number] 100mg Q.83840830 [id number] 3D Take 1 capsule (100 mg total) by mouth 3 (three) times a day. [facility] methocarbam ol (Robaxin) 750 MG tablet 08-13 00:00: 00 08-24 04:59 :00 No [id number] 750mg Q.96046774 [id number] 3D Take 1 tablet (750 mg total) by mouth 3 (three) times a day for 10 days. [facility] traMADol (Ultram) 50 MG tablet 07-23 00:00: 00 Yes [id number] 50mg Q6H Take 1 tablet (50 mg total) by mouth every 6 (six) hours. Alternate with Tylenol [facility] gabapentin (Neurontin) 100 MG capsule 07-23 00:00: 00 07-24 04:59 :00 No [id number] 100mg Q.06801371 [id number] 3D Take 1 capsule (100 mg total) by mouth 3 (three) times a day. [facility] senna-docus ate sodium (Senokot-S) 8.6-50 MG tablet 07-23 00:00: 00 07-24 04:59 :00 No [id number] 1{tbl} QD Take 1 tablet by mouth 1 (one) time each day. [facility] traMADol (Ultram) 50 MG tablet 07-23 00:00: 00 08-13 00:00 :00 No [id number] 50mg Q6H Take 1 tablet (50 mg total) by mouth every 6 (six) hours. Alternate with Tylenol [facility] methocarbam ol (Robaxin) 750 MG tablet 07-23 00:00: 00 08-13 00:00 :00 No [id number] 750mg Q.18154788 [id number] 3D Take 1 tablet (750 mg total) by mouth 3 (three) times a day for 10 days. [facility] gabapentin (Neurontin) 100 MG capsule 07-23 00:00: 00 08-13 00:00 :00 No [id number] 100mg Q.37782781 [id number] 3D Take 1 capsule (100 mg total) by mouth 3 (three) times a day. [facility] senna-docus ate sodium (Senokot-S) 8.6-50 MG tablet 07-23 00:00: 00 08-13 00:00 :00 No [id number] 1{tbl} QD Take 1 tablet by mouth 1 (one) time each day. [facility] methocarbam ol (Robaxin) 750 MG tablet 07-23 00:00: 08-03 04:59 :00 No [id number] 750mg Q.[id number] 3D Take 1 tablet (750 mg total) by mouth 3 (three) times a day for 10 days. [facility] glipiZIDE XL 10 mg 24 hr tablet 05-28 00:00: 00 Yes [id number] 10mg Take 1 tablet by mouth 2 (two) times daily. [facility] atorvastati n 40 mg tablet 05-28 00:00: 00 Yes [id number] 40mg Take 1 tablet by mouth at bedtime. [facility] metformin ER 500 mg 24 hr tablet 05-28 00:00: 00 Yes [id number] 1000mg Take 2 tablets by mouth 2 (two) times daily. [facility] lisinopriL 5 mg tablet 05-28 00:00: 00 Yes [id number] TK 1 T PO QD [facility] pioglitazon e 15 mg tablet 05-28 00:00: 00 Yes [id number] 15mg Take 1 tablet by mouth daily. [facility] glipiZIDE XL 10 mg 24 hr tablet 05-28 00:00: 00 Yes [id number] 10mg Take 1 tablet by mouth 2 (two) times daily. [facility] atorvastati n 40 mg tablet 05-28 00:00: 00 Yes [id number] 40mg Take 1 tablet by mouth at bedtime. [facility] metformin ER 500 mg 24 hr tablet 05-28 00:00: 00 Yes [id number] 1000mg Take 2 tablets by mouth 2 (two) times daily. [facility] lisinopriL 5 mg tablet 05-28 00:00: 00 Yes [id number] TK 1 T PO QD [facility] pioglitazon e 15 mg tablet 05-28 00:00: 00 Yes [id number] 15mg Take 1 tablet by mouth daily. [facility] glipiZIDE XL 10 mg 24 hr tablet 05-28 00:00: 00 Yes [id number] 10mg Take 1 tablet by mouth 2 (two) times daily. [facility] atorvastati n 40 mg tablet 05-28 00:00: 00 Yes [id number] 40mg Take 1 tablet by mouth at bedtime. [facility] metformin ER 500 mg 24 hr tablet 05-28 00:00: 00 Yes [id number] 1000mg Take 2 tablets by mouth 2 (two) times daily. [facility] lisinopriL 5 mg tablet 05-28 00:00: 00 Yes [id number] TK 1 T PO QD [facility] pioglitazon e 15 mg tablet 05-28 00:00: 00 Yes [id number] 15mg Take 1 tablet by mouth daily. [facility] glipiZIDE XL 10 mg 24 hr tablet 05-28 00:00: 00 Yes [id number] 10mg Take 1 tablet by mouth 2 (two) times daily. [facility] atorvastati n 40 mg tablet 05-28 00:00: 00 Yes [id number] 40mg Take 1 tablet by mouth at bedtime. [facility] metformin ER 500 mg 24 hr tablet 05-28 00:00: 00 Yes [id number] 1000mg Take 2 tablets by mouth 2 (two) times daily. [facility] lisinopriL 5 mg tablet 05-28 00:00: 00 Yes [id number] TK 1 T PO QD [facility] pioglitazon e 15 mg tablet 05-28 00:00: 00 Yes [id number] 15mg Take 1 tablet by mouth daily. [facility] metformin ER 500 mg 24 hr tablet 11-28 00:00: 00 Yes [id number] 1000mg Take 2 tablets by mouth 2 (two) times daily. [facility] pioglitazon e 15 mg tablet 11-28 00:00: 00 Yes [id number] 15mg Take 1 tablet by mouth daily. [facility] glipiZIDE XL 10 mg 24 hr tablet 11-28 00:00: 00 Yes [id number] 10mg Take 1 tablet by mouth 2 (two) times daily. [facility] atorvastati n 40 mg tablet 11-28 00:00: 00 Yes [id number] 40mg Take 1 tablet by mouth at bedtime. [facility] lisinopriL 5 mg tablet 11-28 00:00: 00 Yes [id number] TK 1 T PO QD [facility] metformin ER 500 mg 24 hr tablet 11-28 00:00: 00 Yes [id number] 1000mg Take 2 tablets by mouth 2 (two) times daily. [facility] pioglitazon e 15 mg tablet 11-28 00:00: 00 Yes [id number] 15mg Take 1 tablet by mouth daily. [facility] glipiZIDE XL 10 mg 24 hr tablet 11-28 00:00: 00 Yes [id number] 10mg Take 1 tablet by mouth 2 (two) times daily. [facility] atorvastati n 40 mg tablet 11-28 00:00: 00 Yes [id number] 40mg Take 1 tablet by mouth at bedtime. [facility] lisinopriL 5 mg tablet 11-28 00:00: 00 Yes [id number] TK 1 T PO QD [facility] metformin ER 500 mg 24 hr tablet 11-28 00:00: 00 Yes [id number] 1000mg Take 2 tablets by mouth 2 (two) times daily. [facility] pioglitazon e 15 mg tablet 11-28 00:00: 00 Yes [id number] 15mg Take 1 tablet by mouth daily. [facility] glipiZIDE XL 10 mg 24 hr tablet 11-28 00:00: 00 Yes [id number] 10mg Take 1 tablet by mouth 2 (two) times daily. [facility] atorvastati n 40 mg tablet 11-28 00:00: 00 Yes [id number] 40mg Take 1 tablet by mouth at bedtime. [facility] lisinopriL 5 mg tablet 11-28 00:00: 00 Yes [id number] TK 1 T PO QD [facility] metformin ER 500 mg 24 hr tablet 11-28 00:00: 00 Yes [id number] 1000mg Take 2 tablets by mouth 2 (two) times daily. [facility] pioglitazon e 15 mg tablet 11-28 00:00: 00 Yes [id number] 15mg Take 1 tablet by mouth daily. [facility] glipiZIDE XL 10 mg 24 hr tablet 11-28 00:00: 00 Yes [id number] 10mg Take 1 tablet by mouth 2 (two) times daily. [facility] atorvastati n 40 mg tablet 11-28 00:00: 00 Yes [id number] 40mg Take 1 tablet by mouth at bedtime. [facility] lisinopriL 5 mg tablet 11-28 00:00: 00 Yes [id number] TK 1 T PO QD [facility] metformin ER 500 mg 24 hr tablet 11-28 00:00: 00 Yes [id number] 1000mg Take 2 tablets by mouth 2 (two) times daily. [facility] pioglitazon e 15 mg tablet 11-28 00:00: 00 Yes [id number] 15mg Take 1 tablet by mouth daily. [facility] glipiZIDE XL 10 mg 24 hr tablet 11-28 00:00: 00 Yes [id number] 10mg Take 1 tablet by mouth 2 (two) times daily. [facility] atorvastati n 40 mg tablet 11-28 00:00: 00 Yes [id number] 40mg Take 1 tablet by mouth at bedtime. [facility] lisinopriL 5 mg tablet 11-28 00:00: 00 Yes [id number] TK 1 T PO QD [facility] metformin ER 500 mg 24 hr tablet 11-28 00:00: 00 05-28 00:00 :00 No [id number] 1000mg Take 2 tablets by mouth 2 (two) times daily. [facility] pioglitazon e 15 mg tablet 11-28 00:00: 00 05-28 00:00 :00 No [id number] 15mg Take 1 tablet by mouth daily. [facility] glipiZIDE XL 10 mg 24 hr tablet 11-28 00:00: 00 05-28 00:00 :00 No [id number] 10mg Take 1 tablet by mouth 2 (two) times daily. [facility] atorvastati n 40 mg tablet 11-28 00:00: 00 05-28 00:00 :00 No [id number] 40mg Take 1 tablet by mouth at bedtime. [facility] lisinopriL 5 mg tablet 11-28 00:00: 00 05-28 00:00 :00 No [id number] TK 1 T PO QD [facility] metformin ER 500 mg 24 hr tablet 11-28 00:00: 00 05-28 00:00 :00 No [id number] 1000mg Take 2 tablets by mouth 2 (two) times daily. [facility] pioglitazon e 15 mg tablet 11-28 00:00: 00 05-28 00:00 :00 No [id number] 15mg Take 1 tablet by mouth daily. [facility] glipiZIDE XL 10 mg 24 hr tablet 11-28 00:00: 00 05-28 00:00 :00 No [id number] 10mg Take 1 tablet by mouth 2 (two) times daily. [facility] atorvastati n 40 mg tablet 11-28 00:00: 00 05-28 00:00 :00 No [id number] 40mg Take 1 tablet by mouth at bedtime. [facility] lisinopriL 5 mg tablet 11-28 00:00: 00 05-28 00:00 :00 No [id number] TK 1 T PO QD [facility] pioglitazon e 15 mg tablet 03-29 00:00: 00 Yes [id number] 15mg Take 1 tablet by mouth daily. [facility] pioglitazon e 15 mg tablet 03-29 00:00: 00 Yes [id number] 15mg Take 1 tablet by mouth daily. [facility] pioglitazon e 15 mg tablet 03-29 00:00: 00 Yes [id number] 15mg Take 1 tablet by mouth daily. [facility] pioglitazon e 15 mg tablet 03-29 00:00: 00 Yes [id number] 15mg Take 1 tablet by mouth daily. [facility] pioglitazon e 15 mg tablet 03-29 00:00: 00 Yes [id number] 15mg Take 1 tablet by mouth daily. [facility] pioglitazon e 15 mg tablet 03-29 00:00: 00 11-28 00:00 :00 No [id number] 15mg Take 1 tablet by mouth daily. [facility] pioglitazon e 15 mg tablet 03-29 00:00: 00 11-28 00:00 :00 No [id number] 15mg Take 1 tablet by mouth daily. [facility] glipiZIDE XL 10 mg 24 hr tablet 2018-03 004 00:00: 00 Yes [id number] 10mg Take 1 tablet by mouth 2 (two) times daily. [facility] glipiZIDE XL 10 mg 24 hr tablet 2018-03 0 00:00: 00 Yes [id number] 10mg Take 1 tablet by mouth 2 (two) times daily. [facility] glipiZIDE XL 10 mg 24 hr tablet 2018-03 0 00:00: 00 Yes [id number] 10mg Take 1 tablet by mouth 2 (two) times daily. [facility] glipiZIDE XL 10 mg 24 hr tablet 2018-03 0 00:00: 00 Yes [id number] 10mg Take 1 tablet by mouth 2 (two) times daily. [facility] glipiZIDE XL 10 mg 24 hr tablet 2018-03 0 00:00: 00 Yes [id number] 10mg Take 1 tablet by mouth 2 (two) times daily. [facility] glipiZIDE XL 10 mg 24 hr tablet 2018-03 0 00:00: 00 11-28 00:00 :00 No [id number] 10mg Take 1 tablet by mouth 2 (two) times daily. [facility] glipiZIDE XL 10 mg 24 hr tablet 2018-03 0 00:00: 00 11-28 00:00 :00 No [id number] 10mg Take 1 tablet by mouth 2 (two) times daily. [facility] atorvastati n 40 mg tablet 09-07 00:00: 00 Yes [id number] 40mg Take 1 tablet by mouth at bedtime. [facility] pen needle, diabetic 33 gauge x 5/32" Ndle 09-07 00:00: 00 Yes [id number] 1{each} 1 Each every morning. [facility] atorvastati n 40 mg tablet 09-07 00:00: 00 Yes [id number] 40mg Take 1 tablet by mouth at bedtime. [facility] pen needle, diabetic 33 gauge x 5/32" Ndle 09-07 00:00: 00 Yes [id number] 1{each} 1 Each every morning. [facility] atorvastati n 40 mg tablet 09-07 00:00: 00 Yes [id number] 40mg Take 1 tablet by mouth at bedtime. [facility] pen needle, diabetic 33 gauge x 5/32" Ndle 09-07 00:00: 00 Yes [id number] 1{each} 1 Each every morning. [facility] atorvastati n 40 mg tablet 09-07 00:00: 00 Yes [id number] 40mg Take 1 tablet by mouth at bedtime. [facility] pen needle, diabetic 33 gauge x 5/32" Ndle 09-07 00:00: 00 Yes [id number] 1{each} 1 Each every morning. [facility] pen needle, diabetic 33 gauge x 5/32" Ndle 09-07 00:00: 00 Yes [id number] 1{each} 1 Each every morning. [facility] pen needle, diabetic 33 gauge x 5/32" Ndle 09-07 00:00: 00 Yes [id number] 1{each} 1 Each every morning. [facility] pen needle, diabetic 33 gauge x 5/32" Ndle 09-07 00:00: 00 Yes [id number] 1{each} 1 Each every morning. [facility] pen needle, diabetic 33 gauge x 5/32" Ndle 09-07 00:00: 00 Yes [id number] 1{each} 1 Each every morning. [facility] pen needle, diabetic 33 gauge x 5/32" Ndle 09-07 00:00: 00 Yes [id number] 1{each} 1 Each every morning. [facility] pen needle, diabetic 33 gauge x 5/32" Ndle 09-07 00:00: 00 Yes [id number] 1{each} 1 Each every morning. [facility] pen needle, diabetic 33 gauge x 5/32" Ndle 09-07 00:00: 00 Yes [id number] 1{each} 1 Each every morning. [facility] atorvastati n 40 mg tablet 09-07 00:00: 00 Yes [id number] 40mg Take 1 tablet by mouth at bedtime. [facility] liraglutide 0.6 mg/0.1 mL (18 mg/3 mL) injection 09-07 00:00: 00 Yes [id number] 1.2mg inject 1.2 mg under the skin daily. [facility] pen needle, diabetic 33 gauge x 5/32" Ndle 09-07 00:00: 00 Yes [id number] 1{each} 1 Each every morning. [facility] pen needle, diabetic 33 gauge x 5/32" Ndle 09-07 00:00: 00 Yes [id number] 1{each} 1 Each every morning. [facility] pen needle, diabetic 33 gauge x 5/32" Ndle 09-07 00:00: 00 Yes [id number] 1{each} 1 Each every morning. [facility] atorvastati n 40 mg tablet 09-07 00:00: 00 Yes [id number] 40mg Take 1 tablet by mouth at bedtime. [facility] liraglutide 0.6 mg/0.1 mL (18 mg/3 mL) injection 09-07 00:00: 00 Yes [id number] 1.2mg inject 1.2 mg under the skin daily. [facility] pen needle, diabetic 33 gauge x 5/32" Ndle 09-07 00:00: 00 Yes [id number] 1{each} 1 Each every morning. [facility] atorvastati n 40 mg tablet 09-07 00:00: 00 Yes [id number] 40mg Take 1 tablet by mouth at bedtime. [facility] liraglutide 0.6 mg/0.1 mL (18 mg/3 mL) injection 09-07 00:00: 00 Yes [id number] 1.2mg inject 1.2 mg under the skin daily. [facility] pen needle, diabetic 33 gauge x 5/32" Ndle 09-07 00:00: 00 Yes [id number] 1{each} 1 Each every morning. [facility] atorvastati n 40 mg tablet 09-07 00:00: 00 Yes [id number] 40mg Take 1 tablet by mouth at bedtime. [facility] liraglutide 0.6 mg/0.1 mL (18 mg/3 mL) injection 09-07 00:00: 00 Yes [id number] 1.2mg inject 1.2 mg under the skin daily. [facility] pen needle, diabetic 33 gauge x 5/32" Ndle 09-07 00:00: 00 Yes [id number] 1{each} 1 Each every morning. [facility] atorvastati n 40 mg tablet 09-07 00:00: 00 Yes [id number] 40mg Take 1 tablet by mouth at bedtime. [facility] pen needle, diabetic 33 gauge x 5/32" Ndle 09-07 00:00: 00 Yes [id number] 1{each} 1 Each every morning. [facility] atorvastati n 40 mg tablet 09-07 00:00: 00 11-28 00:00 :00 No [id number] 40mg Take 1 tablet by mouth at bedtime. [facility] atorvastati n 40 mg tablet 09-07 00:00: 00 11-28 00:00 :00 No [id number] 40mg Take 1 tablet by mouth at bedtime. [facility] BREO ELLIPTA 200-25 mcg/dose DsDv 2017-03 00:00: 00 Yes INL 1 PUFF PO QD [facility] BREO ELLIPTA 200-25 mcg/dose DsDv 2017-03 00:00: 00 Yes INL 1 PUFF PO QD [facility] BREO ELLIPTA 200-25 mcg/dose DsDv 2017-03 00:00: 00 Yes INL 1 PUFF PO QD [facility]-25 mcg/dose DsDv 2017-03 00:00: 00 Yes INL 1 PUFF PO QD [facility] BREO ELLIPTA 200-25 mcg/dose DsDv 2017-03 00:00: 00 Yes INL 1 PUFF PO QD [facility] BREO ELLIPTA 200-25 mcg/dose DsDv 2017-03 00:00: 00 Yes INL 1 PUFF PO QD [facility] [place] [facility] BREO ELLIPTA 200-25 mcg/dose DsDv 2017-03 00:00: 00 Yes INL 1 PUFF PO QD [facility] BREO ELLIPTA 200-25 mcg/dose DsDv 2017-03 00:00: 00 Yes INL 1 PUFF PO QD [facility] BREO ELLIPTA 200-25 mcg/dose DsDv 2017-03 00:00: 00 Yes INL 1 PUFF PO QD [facility] BREO ELLIPTA 200-25 mcg/dose DsDv 2017-03 00:00: 00 Yes INL 1 PUFF PO QD [facility] [place] BREO ELLIPTA 200-25 mcg/dose DsDv 2017-03 00:00: 00 Yes INL 1 PUFF PO QD [facility] BREO ELLIPTA 200-25 mcg/dose DsDv 2017-03 00:00: 00 Yes INL 1 PUFF PO QD [facility] BREO ELLIPTA 200-25 mcg/dose DsDv 2017-03 00:00: 00 Yes INL 1 PUFF PO QD [facility] BREO ELLIPTA 200-25 mcg/dose DsDv 2017-03 00:00: 00 Yes INL 1 PUFF PO QD [facility] BREO ELLIPTA 200-25 mcg/dose DsDv 2017-03 00:00: 00 Yes INL 1 PUFF PO QD [facility] BREO ELLIPTA 200-25 mcg/dose DsDv 2017-03 00:00: 00 Yes INL 1 PUFF PO QD [facility] BREO ELLIPTA 200-25 mcg/dose DsDv 2017-03 00:00: 00 Yes INL 1 PUFF PO QD [facility] BREO ELLIPTA 200-25 mcg/dose DsDv 2017-03 2-29 00:00: 00 Yes INL 1 PUFF PO QD [facility] tamsulosin 0.4 mg 24 hr capsule 8 00:00: 00 Yes .4mg Take 1 capsule by mouth daily. [facility] tamsulosin 0.4 mg 24 hr capsule 8 00:00: 00 Yes .4mg Take 1 capsule by mouth daily. [facility] tamsulosin 0.4 mg 24 hr capsule 8 00:00: 00 Yes .4mg Take 1 capsule by mouth daily. [facility] tamsulosin 0.4 mg 24 hr capsule 10-29 00:00: 00 Yes .4mg Take 1 capsule by mouth daily. [facility] tamsulosin 0.4 mg 24 hr capsule 10-29 00:00: 00 Yes .4mg Take 1 capsule by mouth daily. [facility] tamsulosin 0.4 mg 24 hr capsule 10-29 00:00: 00 Yes .4mg Take 1 capsule by mouth daily. [facility] tamsulosin 0.4 mg 24 hr capsule 10-29 00:00: 00 Yes .4mg Take 1 capsule by mouth daily. [facility] tamsulosin 0.4 mg 24 hr capsule 10-29 00:00: 00 Yes .4mg Take 1 capsule by mouth daily. [facility] tamsulosin 0.4 mg 24 hr capsule 8 00:00: 00 Yes .4mg Take 1 capsule by mouth daily. [facility] tamsulosin 0.4 mg 24 hr capsule 8 00:00: 00 Yes .4mg Take 1 capsule by mouth daily. [facility] tamsulosin 0.4 mg 24 hr capsule 8 00:00: 00 Yes .4mg Take 1 capsule by mouth daily. [facility] tamsulosin 0.4 mg 24 hr capsule 8 00:00: 00 Yes .4mg Take 1 capsule by mouth daily. [facility] tamsulosin 0.4 mg 24 hr capsule 10-29 00:00: 00 Yes .4mg Take 1 capsule by mouth daily. [facility] tamsulosin 0.4 mg 24 hr capsule 10-29 00:00: 00 Yes .4mg Take 1 capsule by mouth daily. [facility] tamsulosin 0.4 mg 24 hr capsule 10-29 00:00: 00 Yes .4mg Take 1 capsule by mouth daily. [facility] tamsulosin 0.4 mg 24 hr capsule 10-29 00:00: 00 Yes .4mg Take 1 capsule by mouth daily. [facility] tamsulosin 0.4 mg 24 hr capsule 10-29 00:00: 00 Yes .4mg Take 1 capsule by mouth daily. [facility] tamsulosin 0.4 mg 24 hr capsule 10-29 00:00: 00 Yes .4mg Take 1 capsule by mouth daily. [facility] metformin ER 500 mg 24 hr tablet 09-29 00:00: 00 Yes [id number] 1000mg Take 2 tablets by mouth 2 (two) times daily. [facility] metformin ER 500 mg 24 hr tablet 09-29 00:00: 00 Yes [id number] 1000mg Take 2 tablets by mouth 2 (two) times daily. [facility] metformin ER 500 mg 24 hr tablet 09-29 00:00: 00 Yes [id number] 1000mg Take 2 tablets by mouth 2 (two) times daily. [facility] glipiZIDE XL 10 mg 24 hr tablet 09-29 00:00: 00 Yes [id number] 10mg Take 1 tablet by mouth 2 (two) times daily. [facility] metformin ER 500 mg 24 hr tablet 09-29 00:00: 00 Yes [id number] 1000mg Take 2 tablets by mouth 2 (two) times daily. [facility] glipiZIDE XL 10 mg 24 hr tablet 09-29 00:00: 00 Yes [id number] 10mg Take 1 tablet by mouth 2 (two) times daily. [facility] metformin ER 500 mg 24 hr tablet 09-29 00:00: 00 Yes [id number] 1000mg Take 2 tablets by mouth 2 (two) times daily. [facility] glipiZIDE XL 10 mg 24 hr tablet 09-29 00:00: 00 Yes [id number] 10mg Take 1 tablet by mouth 2 (two) times daily. [facility] metformin ER 500 mg 24 hr tablet 09-29 00:00: 00 Yes [id number] 1000mg Take 2 tablets by mouth 2 (two) times daily. [facility] glipiZIDE XL 10 mg 24 hr tablet 09-29 00:00: 00 Yes [id number] 10mg Take 1 tablet by mouth 2 (two) times daily. [facility] metformin ER 500 mg 24 hr tablet 09-29 00:00: 00 Yes [id number] 1000mg Take 2 tablets by mouth 2 (two) times daily. [facility] metformin ER 500 mg 24 hr tablet 09-29 00:00: 00 Yes [id number] 1000mg Take 2 tablets by mouth 2 (two) times daily. [facility] metformin ER 500 mg 24 hr tablet 09-29 00:00: 00 Yes [id number] 1000mg Take 2 tablets by mouth 2 (two) times daily. [facility] metformin ER 500 mg 24 hr tablet 09-29 00:00: 00 11-28 00:00 :00 No [id number] 1000mg Take 2 tablets by mouth 2 (two) times daily. [facility] metformin ER 500 mg 24 hr tablet 09-29 00:00: 00 11-28 00:00 :00 No [id number] 1000mg Take 2 tablets by mouth 2 (two) times daily. [facility] SYMBICORT 160-4.5 mcg/actuati on inhaler 2015-03 00:00: 00 Yes INL 2 PFS PO BID [facility] SYMBICORT 160-4.5 mcg/actuati on inhaler 2015-03 00:00: 00 Yes INL 2 PFS PO BID [facility] SYMBICORT 160-4.5 mcg/actuati on inhaler 2015-03 2 00:00: 00 Yes INL 2 PFS PO BID [facility] SYMBICORT 160-4.5 mcg/actuati on inhaler 2015-03 2 00:00: 00 Yes INL 2 PFS PO BID [facility] SYMBICORT 160-4.5 mcg/actuati on inhaler 2015-03 00:00: 00 Yes INL 2 PFS PO BID [facility] SYMBICORT 160-4.5 mcg/actuati on inhaler 2015-03 00:00: 00 Yes INL 2 PFS PO BID [facility] SYMBICORT 160-4.5 mcg/actuati on inhaler 2015-03 00:00: 00 Yes INL 2 PFS PO BID [facility] SYMBICORT 160-4.5 mcg/actuati on inhaler 2015-03 00:00: 00 Yes INL 2 PFS PO BID [facility] SYMBICORT 160-4.5 mcg/actuati on inhaler 2015-03 00:00: 00 Yes INL 2 PFS PO BID [facility] SYMBICORT 160-4.5 mcg/actuati on inhaler 2015-03 00:00: 00 11-28 00:00 :00 No INL 2 PFS PO BID [facility] SYMBICORT 160-4.5 mcg/actuati on inhaler 2015-03 00:00: 00 11-28 00:00 :00 No INL 2 PFS PO BID [facility] lisinopril 5 mg tablet 2015-03 00:00: 00 Yes TK 1 T PO QD [facility] lisinopril 5 mg tablet 2015-03 00:00: 00 Yes TK 1 T PO QD [facility] lisinopril 5 mg tablet 2015-03 00:00: 00 Yes TK 1 T PO QD [facility] lisinopril 5 mg tablet 2015-03 00:00: 00 Yes TK 1 T PO QD [facility] lisinopril 5 mg tablet 2015-03 00:00: 00 Yes TK 1 T PO QD [facility] lisinopril 5 mg tablet 2015-03 00:00: 00 Yes TK 1 T PO QD [facility] lisinopril 5 mg tablet 2015-03 00:00: 00 Yes TK 1 T PO QD [facility] lisinopril 5 mg tablet 2015-03 00:00: 00 Yes TK 1 T PO QD [facility] lisinopril 5 mg tablet 2015-03 00:00: 00 Yes TK 1 T PO QD [facility] lisinopril 5 mg tablet 2015-03 00:00: 00 11-28 00:00 :00 No TK 1 T PO QD [facility] lisinopril 5 mg tablet 2015-03 00:00: 00 11-28 00:00 :00 No TK 1 T PO QD [facility] Immunizations Ordered Immunization Name Filled Immunization Name Date Status Comments Source Influenza High Dose 2019-12-27 00:00:00 Completed [facility] Influenza High Dose 2019-12-27 00:00:00 Completed [facility] Influenza High Dose 2019-12-27 00:00:00 Completed [facility] Influenza Virus Vaccine Quad .5 mL IM 6+ MO 2017-12-28 00:00:00 Completed [facility] TDAP 2017-12-28 00:00:00 Completed [facility] Influenza Virus Vaccine Quad .5 mL IM 6+ MO 2017-12-28 00:00:00 Completed [facility] TDAP 2017-12-28 00:00:00 Completed [facility] Influenza Virus Vaccine Quad .5 mL IM 6+ MO 2017-12-28 00:00:00 Completed [facility] TDAP 2017-12-28 00:00:00 Completed [facility] Influenza Virus Vaccine Quad .5 mL IM 6+ MO 2017-12-28 00:00:00 Completed [facility] TDAP 2017-12-28 00:00:00 Completed [facility] Influenza Virus Vaccine Quad .5 mL IM 6+ MO 2017-12-28 00:00:00 Completed [facility] TDAP 2017-12-28 00:00:00 Completed [facility] Influenza Virus Vaccine Quad .5 mL IM 6+ MO 2017-12-28 00:00:00 Completed [facility] TDAP 2017-12-28 00:00:00 Completed [facility] Influenza Virus Vaccine Quad .5 mL IM 6+ MO 2017-12-28 00:00:00 Completed [facility] TDAP 2017-12-28 00:00:00 Completed [facility] Influenza Virus Vaccine Quad .5 mL IM 6+ MO 2017-12-28 00:00:00 Completed [facility] TDAP 2017-12-28 00:00:00 Completed [facility] Influenza Virus Vaccine Quad .5 mL IM 6+ MO 2017-12-28 00:00:00 Completed [facility] TDAP 2017-12-28 00:00:00 Completed [facility] Influenza Virus Vaccine Quad .5 mL IM 6+ MO 2017-12-28 00:00:00 Completed [facility] TDAP 2017-12-28 00:00:00 Completed [facility] Influenza Virus Vaccine Quad .5 mL IM 6+ MO 2017-12-28 00:00:00 Completed [facility] TDAP 2017-12-28 00:00:00 Completed [facility] Influenza Virus Vaccine Quad .5 mL IM 6+ MO 2017-12-28 00:00:00 Completed [facility] TDAP 2017-12-28 00:00:00 Completed [facility] Influenza Virus Vaccine Quad .5 mL IM 6+ MO 2017-12-28 00:00:00 Completed [facility] TDAP 2017-12-28 00:00:00 Completed [facility] Influenza Virus Vaccine Quad .5 mL IM 6+ MO (FLUZONE/FLULAVAL/F LUARIX) Unknown Completed [facility] TDAP Unknown Completed [facility] Influenza High Dose Unknown Completed [facility] Vital Signs Vital Name Observation Time Observation Value Comments S ource Systolic blood pressure 2020-05-28 15:02:00 133 mm[Hg] [facility] Diastolic blood pressure 2020-05-28 15:02:00 78 mm[Hg] [facility] Heart rate 2020-05-28 15:02:00 76 /min [facility] Respiratory rate 2020-05-28 15:02:00 19 /min [facility] Body height 2020-05-28 15:02:00 172.7 cm [facility] Body weight 2020-05-28 15:02:00 107.049 kg [facility] BMI 2020-05-28 15:02:00 35.88 kg/m2 [facility] Systolic blood pressure 2019-11-29 19:09:00 119 mm[Hg] [facility] Diastolic blood pressure 2019-11-29 19:09:00 76 mm[Hg] [facility] Heart rate 2019-11-29 19:09:00 78 /min [facility] Body height 2019-11-29 19:09:00 172.7 cm [facility] Body weight 2019-11-29 19:09:00 108.5 kg [facility] BMI 2019-11-29 19:09:00 36.37 kg/m2 [facility] Oxygen saturation in Arterial blood by Pulse oximetry 2019-11-29 19:09:00 95 /min [facility] Systolic blood pressure 2019-11-29 19:09:00 119 mm[Hg] [facility] Diastolic blood pressure 2019-11-29 19:09:00 76 mm[Hg] [facility] Heart rate 2019-11-29 19:09:00 78 /min [facility] Body height 2019-11-29 19:09:00 172.7 cm [facility] Body weight 2019-11-29 19:09:00 108.5 kg [facility] BMI 2019-11-29 19:09:00 36.37 kg/m2 [facility] Oxygen saturation in Arterial blood by Pulse oximetry 2019-11-29 19:09:00 95 /min [facility] Systolic blood pressure 2019-11-29 13:23:00 121 mm[Hg] [facility] Diastolic blood pressure 2019-11-29 13:23:00 78 mm[Hg] [facility] Heart rate 2019-11-29 13:23:00 82 /min [facility] Body temperature 2019-11-29 13:23:00 35.83 Hillary [facility] Respiratory rate 2019-11-29 13:23:00 20 /min [facility] Body height 2019-11-29 13:23:00 172.7 cm [facility] Body weight 2019-11-29 13:23:00 108.228 kg [facility] BMI 2019-11-29 13:23:00 36.28 kg/m2 [facility] Oxygen saturation in Arterial blood by Pulse oximetry 2019-11-29 13:23:00 98 /min [facility] Systolic blood pressure 2018-11-28 19:20:00 148 mm[Hg] [facility] Diastolic blood pressure 2018-11-28 19:20:00 84 mm[Hg] [facility] Heart rate 2018-11-28 19:20:00 63 /min [facility] Body weight 2018-11-28 19:20:00 108.863 kg [facility] BMI 2018-11-28 19:20:00 38.74 kg/m2 [facility] Body temperature 2018-11-28 19:05:00 36.83 Hillary [facility] Respiratory rate 2018-11-28 19:05:00 18 /min [facility] Body height 2018-11-28 19:05:00 167.6 cm [facility] Procedures Procedure Date / Time Performed Performing Clinician Source POCT HEMOGLOBIN A1C TEST 2020-05-28 00:00:00 Jimbo Gonzales [facility] MEDICATION CORRESPONDENCE 2020-01-05 05:01:00 Do ctor Unassigned, [place] [facility] POCT URINALYSIS AUTO 2019-11-29 13:15:00 Bessy Thibodeaux [facility] PATIENT QUESTIONNAIRE 2019-11-29 05:01:00 Doctor Unassigned, [place] [facility] POCT HEMOGLOBIN A1C TEST 2019-11-29 00:00:00 Jimbo Gonzales [facility] POCT URINALYSIS AUTO 2018-11-28 19:21:00 Bessy Thibodeaux [facility] AGREEMENTS AUTHORIZATIONS AND IRREVOCABLE ASSIGNMENTS (FORM 2001) 2018-11-28 05:01:00 Doctor Unassigned, [place] [facility] Encounters Start Date/Time End Date/Time Encounter Type Admission Type Attending [facility] Facility Care Department Encounter ID Source 2022-08-04 10:09:56 Outpatient [facility] [id number] [facility] 2022-07-22 11:50:17 Outpatient [facility] [id number] [facility] 2022-07-17 11:03:32 Outpatient [facility] [id number] [facility] 2022-06-09 15:54:45 Outpatient [facility] [id number] [facility] 2022-05-25 08:31:33 Outpatient [facility] [id number] [facility] 2021-09-04 11:34:51 Outpatient [facility] [id number] [facility] 2021-08-11 07:53:53 Outpatient [facility] [id number] [facility] 2021-08-08 09:32:40 Outpatient [facility] [id number] [facility] 2021-08-01 07:55:36 Outpatient SOFIA JOHNSON [facility] [id number] [facility] 2021-03-05 05:06:38 Outpatient [facility] [id number] [facility] 2021-01-05 08:00:30 Outpatient [facility] [id number] [facility] 2021-01-05 07:46:11 Outpatient [facility] [id number] [facility] 2022-07-22 13:50:00 2022-07-22 13:50:00 Outpatient [facility] [id number] [facility] 2022-07-22 13:45:00 2022-07-22 13:45:00 Office Visit Naren Medel [address] [id number] 350.1.13.58 9.2.7.2.686 [id number] [facility] 2021-09-10 08:30:00 2021-09-10 08:44:21 Office Visit Sofia Johnson [facility] [address] 1.2.840.114 350.1.13.58 9.2.7.2.686 [id number] [facility] 2021-08-13 07:30:00 2021-08-13 07:55:00 Office Visit Sofia Johnson [facility] [address] 1.2.840.114 350.1.13.58 9.2.7.2.686 [id number] [facility] 2021-08-13 07:30:00 2021-08-13 07:30:00 Outpatient [facility] [id number] [facility] 2021-08-13 07:30:00 2021-08-13 07:30:00 Outpatient SOFIA JOHNSON [facility] [id number] [facility] 2021-07-31 10:33:00 2021-07-31 23:59:00 Outpatient SOFIA JOHNSON [facility] [id number] [facility] 2021-07-23 07:30:00 2021-07-23 09:26:12 Office Visit Nora Garciami [facility] [address] 1.2.840.114 350.1.13.58 9.2.7.2.686 [id number] [facility] 2021-07-22 00:00:00 2021-07-22 00:00:00 Telephone Millie Smith [facility] [address] 1.2.840.114 350.1.13.58 9.2.7.2.686 [id number] [facility] 2020-06-24 00:00:00 2020-06-24 00:00:00 Patient Secure Anusha Moyer [facility] 1.2.840.114 350.1.13.10 4.2.7.2.686 [id number] [facility] 2020-05-28 09:59:33 2020-05-28 10:14:33 Level Vial Inspector Visit 2, [facility] Janet [facility] 1.2840.114 350.1.13.10 4.2.7.2.686 [id number] [facility] 2020-05-28 09:04:03 2020-05-28 09:38:44 Office Visit Janet [facility] 1.2840.114 350.1.13.10 4.2.7.2.686 [id number] [facility] 2020-05-28 09:00:00 2020-05-28 09:00:00 Outpatient R JANET [facility] [id number] [facility] 2020-05-27 00:00:00 2020-05-27 00:00:00 Patient Outreach Foreign Martin [facility] 1.2840.114 350.1.13.10 4.2.7.2.686 [id number] [facility] 2020-01-05 00:00:00 2020-01-05 00:00:00 Orders Only Doctor Unassigned, [place] [facility] 1.2840.114 350.1.13.10 4.2.7.2.686 [id number] 2020-01-05 00:00:00 2020-01-05 00:00:00 Orders Only Doctor Unassigned, [place] [facility] 1.2840.114 350.1.13.10 4.2.7.2.686 [id number] [facility] 2019-11-29 13:53:25 2019-11-29 15:00:19 Office Visit Janet [facility] 1.2840.114 350.1.13.10 4.2.7.2.686 [id number] 2019-11-29 13:53:25 2019-11-29 15:00:19 Office Visit Anusha Gonzales [facility] 1.2.840.114 350.1.13.10 4.2.7.2.686 [id number] [facility] 2019-11-29 08:41:35 2019-11-29 08:56:35 Level Vial Inspector Visit 2, Adc Lab Bessy Thibodeaux [facility] 1.2.840.114 350.1.13.10 4.2.7.2.686 [id number] [facility] 2019-11-29 08:03:10 2019-11-29 08:38:00 Office Visit Bessy Thibodeaux [facility] 1.2840.114 350.1.13.10 4.2.7.2.686 [id number] [facility] 2019-11-29 08:00:00 2019-11-29 08:00:00 Outpatient R BESSY THIBODEAUX [facility] [id number] [facility] 2019-11-29 00:00:00 2019-11-29 00:00:00 Orders Only Doctor Unassigned, [place] [facility] 1.2840.114 350.1.13.10 4.2.7.2.686 [id number] 2019-11-29 00:00:00 2019-11-29 00:00:00 Orders Only Doctor Unassigned, [place] [facility] 1.2840.114 350.1.13.10 4.2.7.2.686 [id number] [facility] 2019-09-27 10:00:00 2019-09-27 10:00:00 Outpatient R JANETANUSHA [facility] [id number] [facility] 2019-09-22 00:00:00 2019-09-22 00:00:00 Telephone Abram Saavedra [facility] 1..114 350.1.13.10 4.2.7.2.686 [id number] [facility] 2019-09-21 07:59:03 2019-09-21 08:19:03 Laboratory Only Lab, [facility] 1.114 350.1.13.10 4.2.7.2.686 [id number] [facility] 2019-09-21 08:00:00 2019-09-21 08:00:00 Outpatient Aba ORELLANA [facility] [id number] [facility] 2019-09-21 08:00:00 2019-09-21 08:00:00 Outpatient Aba ORELLANA [facility] [id number] [facility] 2019-03-29 08:00:00 2019-03-29 08:47:56 Outpatient R ANUSHA GONZALES [facility] [id number] [facility] 2018-11-28 14:15:05 2018-11-28 14:30:05 Level Vial Inspector Visit 2, [facility] Lab Bessy Thibodeaux [facility] 1..114 350.1.13.10 4.2.7.2.686 [id number] [facility] 2018-11-28 13:47:46 2018-11-28 14:11:43 Office Visit Bessy Thibodeaux Britney [facility] 1..114 350.1.13.10 4.2.7.2.686 [id number] [facility] 2018-11-28 00:00:00 2018-11-28 00:00:00 Orders Only Doctor Unassigned, [place] [facility] 1..114 350.1.13.10 4.2.7.2.686 [id number] [facility] 2018-09-15 00:00:00 2018-09-15 00:00:00 Patient Secure Anusha Moyer [facility] Dylan [facility] 1.2.840.114 350.1.13.10 4.2.7.2.686 [id number] [facility] Results Test Description Test Time Test Comments Results Result Co mments Source [facility] HEMOGLOBIN A1C [id number] 15:14:00* Test Item Value Reference Range Interpretation Comme nts POCT HBA1C (test code = 4548-4) 7.9 % 4-6 A Lab Interpretation (test cod e = 68476-3) Abnormal [facility] HEMOGLOBIN A1C [id number] 19:14:00* Test Item Value Reference Range Interpretation Comme nts POCT HBA1C (test code = 4548-4) 8.0 % 4-6 A Lab Interpretation (test cod e = 79166-7) Abnormal [facility] HEMOGLOBIN A1C [id number] 19:14:00* Test Item Value Reference Range Interpretation Comme nts POCT HBA1C (test code = 4548-4) 8.0 % 4-6 A Lab Interpretation (test cod e = 20936-1) Abnormal [facility] URINALYSIS, [id number] 13:16:00 * Test Item Value Reference Range Interpretation Comme nts POCT U SP GRAV (test code = 3255) 1.010 mg/dl 1.005-1.025 POCT PH U (test code = 3254) 5.0 mg/dl 5-8 POCT U LEUK EST (test code = 3263) negative Negative - Negative POCT U NIT (test code = 3262) negative Negative - Negati ve POCT U PROT (test code = 3259) negative Negative - Negative POCT U GLU (test code = 3256) negative Negative - Negati ve POCT U KETONE (test code = 3258) negative Negative - Negative POCT U UROBILI (test code = 3260) 0.2 mg/dl 0.2-1 POCT U BILI (test code = 3261) negative Negative - Negative POCT U BLD (test code = 3257) negative Negative - Negati ve POCT U COLOR (test code = 3266) yellow POCT U APPEAR (test code = 3267) clear [facility] URINALYSIS, [id number] 13:16:00 * Test Item Value Reference Range Interpretation Comme nts POCT U SP GRAV (test code = 3255) 1.010 mg/dl 1.005-1.025 POCT PH U (test code = 3254) 5.0 mg/dl 5-8 POCT U LEUK EST (test code = 3263) negative Negative - Negative POCT U NIT (test code = 3262) negative Negative - Negati ve POCT U PROT (test code = 3259) negative Negative - Negative POCT U GLU (test code = 3256) negative Negative - Negati ve POCT U KETONE (test code = 3258) negative Negative - Negative POCT U UROBILI (test code = 3260) 0.2 mg/dl 0.2-1 POCT U BILI (test code = 3261) negative Negative - Negative POCT U BLD (test code = 3257) negative Negative - Negati ve POCT U COLOR (test code = 3266) yellow POCT U APPEAR (test code = 3267) clear [facility] URINALYSIS, [id number] 19:22:00 * Test Item Value Reference Range Interpretation Comme nts POCT U SP GRAV (test code = 3255) 1.010 mg/dl 1.005-1.025 POCT PH U (test code = 3254) 6.0 mg/dl 5-8 POCT U LEUK EST (test code = 3263) Negative Negative - Negative POCT U NIT (test code = 3262) Negative Negative - Negati ve POCT U PROT (test code = 3259) Negative Negative - Negative POCT U GLU (test code = 3256) Negative - Negati ve POCT U KETONE (test code = 3258) Negative Negative - Negative POCT U UROBILI (test code = 3260) 0.2 mg/dl 0.2-1 POCT U BILI (test code = 3261) Negative Negative - Negative POCT U BLD (test code = 3257) trace Negative - Negati ve POCT U COLOR (test code = 3266) yellow POCT U APPEAR (test code = 3267) clear Lab Interpretation (test cod e = [id number]) Abnormal [facility]
[2023-04-02] MEDS ORDERED: ALBUTEROL INHALER 60 PUFF/8 GM IH PRN (16:32)
[2023-04-02 17:04] LABS: Absolute Lymphocytes (CBC) 1.3 K/uL (0.7-4.9); Hematocrit 42.2 % (39.6-49.0); Lymphocytes % 22.3 % (15.3-44.8); MCV 95.2 fL (80-100); MPV 6.3 fL (7.6-11.3); Platelets 221 thou/uL (152-406); RBC Red Blood Cell Count 4.43 M/uL (4.33-5.43)
[2023-04-02 17:13] VITALS: BMI 32.1
[2023-04-02 17:27] LABS: Albumin 3.4 g/dL (3.4-5.0); Bilirubin Total 0.5 mg/dL (0.2-1.0); Potassium 4.5 mEq/L (3.5-5.1); Protein, Total 6.9 g/dL (6.4-8.2)
[2023-04-02 17:47] LABS: Thyroid Stimulating Hormone 4.67 uIU/mL (0.358-3.740)
[2023-04-02] MEDS ORDERED: PNEUMOCOCCAL VACCINE 0.5 ML IMVAC ONE (18:00)
[2023-04-02] MEDS: METFORMIN HCL 500 MG TAB PO SCH (18:06)
[2023-04-02] MEDS: ENOXAPARIN 40 MG/0.4 ML SQ SCH (18:06)
[2023-04-02] MEDS ORDERED: GLUCAGON 1 MG/VIAL IM PRN (18:31)
[2023-04-02] MEDS ORDERED: D10W 250 ML BAG IV PRN (18:31)
--- NOTE | 2023-04-02 20:01 | RAD REPORT ---
EXAM DESCRIPTION: CT - Stone Protocol - 04/02/2023 7:52 pm CLINICAL HISTORY: Flank pain. pyelonephritis, rule out kidney stone COMPARISON: <Comparisons> TECHNIQUE: Axial images were obtained without oral or IV contrast. Lack of contrast limits solid org an and vascular assessment. The [id number] spans the entirety of the system partially obscuring uppermost abdomen and lung bases. Coronal reformatted images were obtained and reviewed. All CT scans are performed using dose optimization technique as appropriate and may include automated exposure control or mA/KV adjustment according to patient size. FINDINGS: Chronic left inferior lung pleural thickening. There is a 9 mm nodule in the left lung bas e, noncalcified. Imaged portions of the liver and spleen show no suspicious findings on non-contrast imaging. The panc reas and adrenal glands are normal. No pathologic lymphadenopathy in the abdomen or pelvis. 4.6 cm in frarenal abdominal aortic aneurysm. No urinary tract stones or obstructive uropathy. No bowel obstruction, free air, free fluid or abscess. Normal appendix noted.Prominent stool is retai susie throughout the colon. Scattered diverticulosis coli. Small fat containing left inguinal hernia. No significant bony abnormality. IMPRESSION: No urinary tract stones or obstructive uropathy. Significant stool retention throughout the colon. 4.6 cm infrarenal abdominal aortic aneurysm. 9 mm noncalcified nodule left lung base. Recommend follow-up CT chest assessment in 6 months to monit or.
--- NOTE | 2023-04-02 20:33 | RAD REPORT ---
EXAM DESCRIPTION: US - Extrem Venous W Compress Davis - 04/02/2023 8:26 pm CLINICAL HISTORY: leg edema Bilateral leg edema and swelling. COMPARISON: <Comparisons> TECHNIQUE: Real-time sonographic interrogation of the left and right lower extremity deep venous sys tems was performed. FINDINGS: Normal compressibility, flow augmentation, phasic flow and spontaneous flow is identified in both the left and right lower extremity deep venous systems. IMPRESSION: No sonographic evidence of left or right lower extremity deep venous thrombosis.
[2023-04-02] MEDS: FAMOTIDINE 20 MG TAB PO SCH (20:55)
[2023-04-02] MEDS: Mupirocin NASAL 2 APPL/1 GM TUBE NAS SCH (20:55)
[2023-04-02] MEDS: ATORVASTATIN 20 MG TAB PO SCH (20:56)
[2023-04-02] MEDS: Meropenem 1,000 MG in NA CHLORIDE 0.9% 100 ML IV SCH (20:57)
[2023-04-02] MEDS: INSULIN REGULAR (HUMAN) 100 UNIT/ML SQ SCH (20:58)
[2023-04-02] MEDS: DULERA 200/5 (MOMETASONE/FORMOTEROL) INHALER IH SCH (21:00)
[2023-04-02] MEDS: METOPROLOL TAR 50 MG TAB PO SCH (21:03)
[2023-04-02] MEDS: TRAMADOL HCL 50 MG TAB PO PRN (21:34)
--- NOTE | 2023-04-02 21:59 | RAD REPORT ---
EXAM DESCRIPTION: RAD - Chest Single View - 04/02/2023 9:51 pm CLINICAL HISTORY: PICC LINE PLACEMENT COMPARISON: Abdomen Pelvis W Contrast dated 12/18/2022hest Pa And Lat (2 Views) dated 07/21/2021; Ch est Single View dated 07/12/2021; Chest Single View dated 07/11/2021; Chest Single View dated 07/11/2021 FINDINGS: Portable chest was obtained following placement of a right upper extremity PICC line. The catheter tip projects over the SVC.
[2023-04-03] MEDS: INSULIN REGULAR (HUMAN) 100 UNIT/ML SQ SCH ×4 (07:30→21:00)
[2023-04-03] MEDS: METFORMIN HCL 500 MG TAB PO SCH ×2 (08:44→17:58)
[2023-04-03] MEDS: METOPROLOL TAR 50 MG TAB PO SCH ×2 (08:44→21:38)
[2023-04-03] MEDS: ASPIRIN EC 81 MG TAB PO SCH (08:44)
[2023-04-03] MEDS: AMLODIPINE 5 MG TAB PO SCH (08:44)
[2023-04-03] MEDS: TAMSULOSIN 0.4 MG SR CAP PO SCH (08:44)
[2023-04-03] MEDS: LORATADINE 10 MG TAB PO SCH (08:45)
[2023-04-03] MEDS: TRAMADOL HCL 50 MG TAB PO PRN (08:45)
[2023-04-03] MEDS: MONTELUKAST 10 MG TAB PO SCH (08:45)
[2023-04-03] MEDS: VALSARTAN 160 MG TAB PO SCH (08:45)
[2023-04-03] MEDS: Mupirocin NASAL 2 APPL/1 GM TUBE NAS SCH ×2 (08:46→21:31)
[2023-04-03] MEDS: Meropenem 1,000 MG in NA CHLORIDE 0.9% 100 ML IV SCH ×2 (08:46→21:29)
[2023-04-03] MEDS: ENOXAPARIN 40 MG/0.4 ML SQ SCH (08:47)
--- NOTE | 2023-04-03 12:51 | HP ---
Date of Admission: 04/03/2023 Chief Complaint: Burning on urination and flank pain. History Of Present Illness: This is a 67-year-old very pleasant male patient, came in to office 3 days ago with burning sensation on urination and right flank pain. Denies any nausea, vomiting. No fever, chills. No hematuria. After he was evaluated at office, we did urinalysis, which was abnormal indicating urinary tract infection and urine culture was sent and patient was started on antibiotic, which was Cipro. Yesterday, we did get the urine culture results back and it is growing Klebsiella and it is ESBL. Patient was contacted with this information and was advised to come to hospital for admission for IV antibiotic therapy and arrangements were made for him to get admitted. I saw him this morning, his and daughter were present with him at bedside. Allergies: NO KNOWN ALLERGIES. Medications: He takes albuterol inhaler 2 puffs 4 times a day as needed, amlodipine 5 mg daily in the morning, aspirin 81 mg daily, atorvastatin 20 mg daily at bedtime. Jardiance, he was taking 10 mg daily, which was recently discontinued on 03/30/2023 when he came in with this urinary tract infection symptoms. Famotidine 40 mg daily at bedtime, Trelegy inhaler 1 puff daily, metformin 500 mg takes 2 tablets by mouth 2 times a day, metoprolol tartrate 50 mg 2 times a day, montelukast 10 mg daily, tamsulosin 0.4 mg takes 2 capsules daily, valsartan 320 mg takes 1 tablet daily, Claritin 10 mg daily. Review of Systems: Genitourinary: As mentioned above. All other systems reviewed are negative. Past Medical History: Significant for type 2 diabetes mellitus, COPD, pulmonary nodule, hypertension, hyperlipidemia, abdominal aortic aneurysm, gastroesophageal reflux disease, known alcoholic fatty liver disease, cervical spondylosis, osteoarthritis at multiple sites. Past Surgical History: Left clavicle fracture and surgery for that done in August 2021. Family History: Parents with congestive heart failure. Brother with COVID-19 infection. Social History: Prior history of smoking, not at present time. Use of alcohol, negative. Physical Examination: Vital Signs: Upon admission, temperature 97, pulse 66, respiratory rate 17, blood pressure 160/80, oxygen saturation 97%. Height 5 feet 11 inches, weight 230 pounds. General: Awake, alert, oriented, not in distress. HEENT: Head atraumatic, normocephalic. Conjunctivae nonerythematous. Sclerae white. Mouth, no thrush or edema noted. Ears/Nose, no mass, lesion, discharge noted. Neck: Supple. No JVD, lymph nodes, bruit, thyromegaly noted. Lungs: Bilateral good equal air entry. Clear to auscultation. No rhonchi. No rales. Heart: Normal heart sounds, no murmur or gallop. Abdomen: Soft, bowel sounds normal. No guarding, rigidity, tenderness, mass, hepatosplenomegaly, distention, or bruit noted. Extremities: No leg edema. No calf tenderness. Skin: No rash, ulcer, cellulitis. Lymphatics: No lymph node enlargement in neck, supraclavicular, infraclavicular region. Neuro: No focal neurological deficit. Chest: Unremarkable. External Genitalia: Deferred. Rectal: Deferred. Laboratory Data: White count 5.9, hemoglobin 14.6, platelets 221. Sodium 134, potassium 4.5, chloride 102, bicarb 27, BUN 11, creatinine 0.86, glucose 154. Liver function tests are unremarkable. TSH 4.67. Urine culture grew klebsiella, ESBL. Impression: 1. Acute pyelonephritis, organism klebsiella, ESBL. 2. Chronic obstructive pulmonary disease. 3. Hypertension. 4. Type 2 diabetes mellitus. 5. Hyperlipidemia. 6. Gastroesophageal reflux disease. 7. Osteoarthritis, multiple sites. Plan: We will go ahead and admit him to hospital for further evaluation and management of this problem. Patient is appropriate for inpatient and is expected to spend 2 midnights in hospital. For his acute pyelonephritis, according to culture and sensitivity results, we will go ahead and start him on IV meropenem 1000 mg every 12 hours. PICC line was ordered after his admission to the hospital and this morning when I saw him, he does have PICC line in place in right arm. I have placed a consultation for social service to help us make arrangements for home IV antibiotic therapy. Plan is to give 10 days of IV meropenem. I have ordered CT scan of abdomen and pelvis as per kidney stone protocol and we will follow up on result. Yesterday upon admission, nursing staff did notice a slight amount of leg swelling and venous Doppler was ordered to rule out DVT and test was done, but result is not available yet. We will follow up on that result. For his hypertension, we will continue his antihypertensive medication, monitor blood pressure. If necessary, adjust antihypertensive medication. For his COPD, we will continue his inhaler as per order and no need for any further intervention and COPD problem is stable. Patient takes tamsulosin for his benign prostatic hypertrophy, and we will continue that as per order. Diabetes will be managed with metformin as per order. Fingerstick blood sugar with a.c. and at bedtime, mild sliding scale was ordered. For hyperlipidemia, we will continue his statin therapy and no need for further intervention. DVT prophylaxis will be given using Lovenox. Details of plan and treatment discussed with patient and the patient's and daughter were present in room and I also communicated details with the patient's son who is a physician and all those details were discussed with him as well. CARLOS/RENO Voice ID: [id number] MTDD
[2023-04-03] MEDS: DULERA 200/5 (MOMETASONE/FORMOTEROL) INHALER IH SCH (21:29)
[2023-04-03] MEDS: ATORVASTATIN 20 MG TAB PO SCH (21:30)
[2023-04-03] MEDS: FAMOTIDINE 20 MG TAB PO SCH (21:30)
[2023-04-04] MEDS: INSULIN REGULAR (HUMAN) 100 UNIT/ML SQ SCH ×4 (07:30→21:00)
[2023-04-04] MEDS: MONTELUKAST 10 MG TAB PO SCH (09:00)
[2023-04-04] MEDS: METOPROLOL TAR 50 MG TAB PO SCH ×2 (09:00→20:30)
[2023-04-04] MEDS: DULERA 200/5 (MOMETASONE/FORMOTEROL) INHALER IH SCH ×3 (09:30→20:34)
[2023-04-04] MEDS: AMLODIPINE 5 MG TAB PO SCH (09:33)
[2023-04-04] MEDS: ENOXAPARIN 40 MG/0.4 ML SQ SCH (09:33)
[2023-04-04] MEDS: METFORMIN HCL 500 MG TAB PO SCH ×2 (09:34→17:10)
[2023-04-04] MEDS: ASPIRIN EC 81 MG TAB PO SCH (09:34)
[2023-04-04] MEDS: LORATADINE 10 MG TAB PO SCH (09:34)
[2023-04-04] MEDS: Meropenem 1,000 MG in NA CHLORIDE 0.9% 100 ML IV SCH ×2 (09:47→20:30)
[2023-04-04] MEDS: VALSARTAN 160 MG TAB PO SCH (09:47)
[2023-04-04] MEDS: Mupirocin NASAL 2 APPL/1 GM TUBE NAS SCH ×2 (09:47→20:34)
[2023-04-04] MEDS: TAMSULOSIN 0.4 MG SR CAP PO SCH (09:56)
--- NOTE | 2023-04-04 13:18 | PN ---
Date of Progress Note: 04/04/2023 Subjective: Patient was seen this morning for followup. No new complaints or problems reported by h im. Denies any abdominal pain, nausea, vomiting. Patient still has some right flank pain, especiall y when he changes his position. Burning sensation on urination is there, but better than before. No hematuria. Objective: Vital signs: Reviewed. Remains afebrile. HEENT: Unremarkable. Lungs: Clear to auscultation. Heart: Sounds normal. Abdomen: Soft. Bowel sounds normal. No guarding, rigidity, tenderness, or distention. Extremities: No leg edema. Laboratory Data: There were no new labs today. Impression: 1.Acute pyelonephritis, organism klebsiella, ESBL. 2.Chronic obstructive pulmonary disease. 3.Hypertension. 4.Type 2 diabetes mellitus. Plan: We will go ahead and continue current IV antibiotic, which is meropenem. Social Service is wo rking on making arrangements for patient to receive IV meropenem at home. As this arrangements gets completed, plan is to discharge him to go home. I have discussed all these details with him and upon discharge, we will use IV antibiotics and antibiotic that was prescribed to him to 3 days prior to t his admission, will be discontinued and he will continue all his other previous home medications as b efore. All these details were explained to him today. CARLOS/MODL Voice ID: [id number] Report ID: [id number]
[2023-04-04] MEDS: FAMOTIDINE 20 MG TAB PO SCH (20:30)
[2023-04-04] MEDS: ATORVASTATIN 20 MG TAB PO SCH (20:30)
[2023-04-04] MEDS: TRAMADOL HCL 50 MG TAB PO PRN (20:30)
[2023-04-05 01:28] VITALS: O2SAT 95
[2023-04-05] MEDS: INSULIN REGULAR (HUMAN) 100 UNIT/ML SQ SCH ×2 (07:30→11:30)
[2023-04-05] MEDS: VALSARTAN 160 MG TAB PO SCH (09:42)
[2023-04-05] MEDS: Mupirocin NASAL 2 APPL/1 GM TUBE NAS SCH (09:42)
[2023-04-05] MEDS: ASPIRIN EC 81 MG TAB PO SCH (09:42)
[2023-04-05] MEDS: LORATADINE 10 MG TAB PO SCH (09:42)
[2023-04-05] MEDS: METFORMIN HCL 500 MG TAB PO SCH (09:42)
[2023-04-05] MEDS: AMLODIPINE 5 MG TAB PO SCH (09:43)
[2023-04-05] MEDS: METOPROLOL TAR 50 MG TAB PO SCH (09:43)
[2023-04-05] MEDS: Meropenem 1,000 MG in NA CHLORIDE 0.9% 100 ML IV SCH (09:43)
[2023-04-05] MEDS: ENOXAPARIN 40 MG/0.4 ML SQ SCH (09:43)
[2023-04-05] MEDS: DULERA 200/5 (MOMETASONE/FORMOTEROL) INHALER IH SCH (09:43)
[2023-04-05] MEDS: MONTELUKAST 10 MG TAB PO SCH (09:43)
[2023-04-05] MEDS: TAMSULOSIN 0.4 MG SR CAP PO SCH (09:43)
[2023-04-05 13:48] VITALS: BP 142/72; TEMP 97.4
--- NOTE | 2023-04-05 14:39 | PN ---
Date of Progress Note: 04/05/2023 Subjective: Patient was seen this morning for followup. No new complaints or problems reported by t he patient. He was lying in bed, not in distress. Denies any chest pain, shortness of breath, nause a, vomiting. Objective: Vital Signs: Reviewed. HEENT: Unremarkable. Lungs: Clear to auscultation. Heart: Sounds normal. Abdomen: Soft. Bowel sounds normal. No guarding, rigidity, tenderness, or distention. Extremities: No leg edema. Impression: 1.Acute pyelonephritis, organism Klebsiella, ESBL. 2.Chronic obstructive pulmonary disease. 3.Type 2 diabetes mellitus. 4.Hypertension. 5.Pulmonary nodule. 6.Abdominal aortic aneurysm. Plan: We will continue meropenem for his pyelonephritis problem and we are waiting on Social Service to complete arrangements for home IV antibiotic therapy and once that is completed, the patient will be able to go home. Continue other current medical management. The patient's CAT scan done during this hospitalization has shown a small 9 mm left lower lobe pulmonary nodule and this has remained st able going back all the way to 2014, so there is no need for any further intervention for this pulmon avery nodule, and patient were made aware of this today. For abdominal aortic aneurysm, the patient se es doctor assistant, Dr. Carnes, for regular monitoring and he will continue to do so. CARLOS/MODL Voice ID: [id number] Report ID: [id number]
== END 2023-04-05 15:14 | disposition home or self-care (01) | DRG 690 ==
LOC: 2ND 16:07
PROVIDERS: ADMIT Internal Medicine; ATTEND Internal Medicine
PROC: 02HV33Z Insertion of Infusion Device into Superior Vena Cava, Percutaneous Approach (ICD-10-PCS; principal; 2023-04-02)
DX: N10 Acute pyelonephritis (principal); Z16.12 Extended spectrum beta lactamase (ESBL) resistance; B96.1 Klebsiella pneumoniae [K. pneumoniae] as the cause of diseases classified elsewhere; J44.9 Chronic obstructive pulmonary disease, unspecified; E11.9 Type 2 diabetes mellitus without complications; I10 Essential (primary) hypertension; I71.40 Abdominal aortic aneurysm, without rupture, unspecified; R91.1 Solitary pulmonary nodule; M79.89 Other specified soft tissue disorders; E78.5 Hyperlipidemia, unspecified; K70.0 Alcoholic fatty liver; K21.9 Gastro-esophageal reflux disease without esophagitis; M47.812 Spondylosis without myelopathy or radiculopathy, cervical region; N40.0 Benign prostatic hyperplasia without lower urinary tract symptoms; M15.9 Polyosteoarthritis, unspecified; Z79.84 Long term (current) use of oral hypoglycemic drugs; Z79.82 Long term (current) use of aspirin; Z79.899 Other long term (current) drug therapy; Z87.891 Personal history of nicotine dependence; Z82.49 Family history of ischemic heart disease and other diseases of the circulatory system
CPT/HCPCS: 36415; 36569; 71045; 74176; 76377; 80053; 82947; 83735; 84439; 84443; 85025; 93970; J1650; J2185; J3535

== ENCOUNTER 2023-05-12 07:00 | Day surgery (SDC) | payer OTHER, MEDICARE ==
[2023-05-06 13:11] LABS: Absolute Basophils 0.1 K/uL (0-0.5); Absolute Eosinophils 0.1 K/uL (0-0.5); Absolute Lymphocytes (CBC) 1.3 K/uL (0.7-4.9); Absolute Monocytes 0.7 K/uL (0.1-1.3); Absolute Neutrophil 5.4 K/uL (1.8-8.0); Basophils % 0.7 % (0-1.3); Eosinophils % 1.3 % (0-4.4); Hemoglobin 15.1 g/dL (13.6-17.9); MCH 33.2 pg (27.0-35.0); MCHC 35.2 g/dL (32.0-36.0); MCV 94.4 fL (80-100); MPV 6.6 fL (7.6-11.3); Monocytes % 9.3 % (3.3-12.3); Neutrophils % 71.7 % (41.7-73.7); Platelets 226 thou/uL (152-406); RBC Red Blood Cell Count 4.56 M/uL (4.33-5.43); Red Cell Distribution Width 13.1 % (12.1-15.2)
--- NOTE | 2023-05-06 13:19 | RAD REPORT ---
EXAM DESCRIPTION: RAD - Chest Pa And Lat (2 Views) - 05/06/2023 1:08 pm CLINICAL HISTORY: Pre op pending abdominal angiogram Chest pain. COMPARISON: Chest Single View dated 04/02/2023; Chest Pa And Lat (2 Views) dated 07/21/2021; Chest Sing le View dated 07/12/2021; Chest Single View dated 07/11/2021; Abdomen Pelvis Wo Contrast dated 024 FINDINGS: Reduced left lung volume with small left pleural effusion/ pleural thickening is unchanged . Right lung is emphysematous but clear. The heart is mildly prominent in size. Several old rib fract ures are present on the left. Left clavicular hardware.
[2023-05-06 13:22] LABS: PT Prothrombin Time 11.1 SECONDS (9.5-12.5); PTT, Activated Partial Thromb 35.5 SECONDS (24.3-36.9); Protime INR 1.01
--- NOTE | 2023-05-07 15:01 | EKG ---
Test Date: 2023-05-06 Test Time: 13:45:58 Doctor Of Nurse Anesthesia: LINNEA MEASUREMENT RESULTS: Intervals: Rate: 51 MN: 216 QRSD: 100 QT: 436 QTc: 401 Clyman: P: 48 MN: 216 QRS: 45 T: 50 INTERPRETIVE STATEMENTS: Sinus bradycardia with 1st degree AV block Otherwise normal ECG Compared to ECG 12/04/2014 17:47:14 First degree AV block now present Sinus rhythm no longer present Incomplete right bundle-branch block no longer present Myocardial infarct finding no longer present Electronically Signed On 05-07-23 15:00:16 SCOW DERRICK OPERATOR by Maxwell Carnes
[2023-05-12] MEDS ORDERED: NITROGLYCERIN/D5W 25 MG/250 ML BTL IV ONE (07:12)
[2023-05-12] MEDS ORDERED: HEPA 1000U/500MLS 2,000 UNIT/1,000 ML BAG IV ONE (07:12)
[2023-05-12] MEDS ORDERED: FENTANYL CITR 100 MCG/2 ML ONE (07:13)
[2023-05-12] MEDS ORDERED: VERAPAMIL HCL 10 MG/4 ML VIAL IV ONE (07:13)
[2023-05-12] MEDS ORDERED: MIDAZOLAM HCL 2 MG/2 ML INJ ONE (07:13)
[2023-05-12] MEDS ORDERED: LIDOCAINE 1% 20 ML MDV ONE (07:13)
[2023-05-12] MEDS ORDERED: HEPARIN 10,000 UNIT/10 ML VIAL IV ONE (07:14)
[2023-05-12] MEDS ORDERED: TICAGRELOR 90 MG TABLET PO ONE (07:14)
[2023-05-12] MEDS ORDERED: CLOPIDOGREL 75 MG TABLET ONE (07:14)
[2023-05-12] MEDS ORDERED: HEPARIN 5000 UNIT/ML 1 ML VIAL ONE (07:14)
[2023-05-12] MEDS ORDERED: ASPIRIN 325 MG TAB ONE (07:15)
[2023-05-12] MEDS ORDERED: NA CHLORIDE 0.9% 500 ML ONE (07:26)
[2023-05-12 10:36] VITALS: BP 154/61; O2SAT 98
--- NOTE | 2023-06-11 23:22 | OP ---
Date of Procedure: 05/12/2023 Surgeon: Connor Pickett Procedure Performed: Abdominal aortogram with peripheral run-off. Indication For Procedure: Claudications, abnormal KELVIN. Complications: None. Estimated Blood Loss: Less than 50 cc. Sedation Time: 30 minutes with Versed and fentanyl. Description Of Procedure: After risks, benefits, and alternatives were explained to the patient, the patient agreed to proceed with the procedure and signed informed consents. The patient was brought to the cardiac catheterization and was placed on the cath lab nurse table, draped and prepped in a sterile fashion. Time-out was performed and sedation was administered. Next, right groin access was obtaine d in the right common femoral artery using a micropuncture sheath and a 4-Salvadorean catheter. Omni Flus h catheter was advanced to the lower abdominal aorta that was exchanged later with an LORELEI catheter ov er J-wire for the left lower extremity run-off, which was later pulled all out over a J-wire and exch anged with a right sheath angiogram, which was used for the right lower extremity run-off. At the en d of procedure, sheath was removed and Angio-Seal was deployed to close the right common femoral osmin ry access. The patient was moved to recovery without any complications. Findings: 1.Infrarenal abdominal aortic aneurysm measuring 4.7 cm in diameter. 2.Right external iliac artery and internal iliac artery are patent. 3.Right SFA shows calcified 30% disease. 4.Right profunda ostial 60% disease. 5.Right popliteal artery normal. 6.Right TP trunk is normal. 7.Right anterior tibial artery mid occluded. 8.Right posterior tibial/peroneal artery patent with diffuse disease. 9.Two-vessel run-off. 10.Left common iliac artery, external iliac artery, and internal iliac artery are patent. 11.Left SFA diffuse calcified 30% to 50% disease. 12.Left profunda is normal. 13.Left popliteal diffuse calcified 30% disease. 14.Left TP trunk is patent. 15.Left anterior tibial artery mid occluded. 16.Left posterior tibial artery diffuse disease, patent. 17.Left peroneal artery diffuse disease, patent. 18.Two-vessel run-off. Assessment And Plan: Significant lower abdominal aorta dilation measuring 4.7 cm in diameter. Recom mendation will be continued medical management, and continue to monitor with annual abdominal ultraso unds and CT scans. ALANIS/RENO Voice ID: [id number] Report ID: [id number]
== END 2023-05-12 10:20 | disposition home or self-care (01) ==
LOC: CCL 07:00
PROVIDERS: ATTEND Internal Medicine
DX: I70.223 Atherosclerosis of native arteries of extremities with rest pain, bilateral legs (principal); I71.43 Infrarenal abdominal aortic aneurysm, without rupture; I65.23 Occlusion and stenosis of bilateral carotid arteries; E11.9 Type 2 diabetes mellitus without complications; I10 Essential (primary) hypertension; E78.5 Hyperlipidemia, unspecified; I51.7 Cardiomegaly; F17.210 Nicotine dependence, cigarettes, uncomplicated; Z79.84 Long term (current) use of oral hypoglycemic drugs; Z79.899 Other long term (current) drug therapy
CPT/HCPCS: 93005; 85025; 80048; 36415; 83721; 85610; 82947; 85730; 71046; 36200; 75630; 76937; C1893; C1760; C1887; G0269; C1769; J2001; J2250; J3010; J7040; 36246; 75625; 99152; 99153; J1644